=== PATIENT | female | born 1985 | race African-American/Black ===

== ENCOUNTER 2020-08-13 15:22 | Emergency (ER) | payer MEDICAID, SELFPAY ==
[2020-08-13 15:27] VITALS: BP 127/79; PULSE 72; RESP 18; TEMP 36.9; O2SAT 100; BMI 28.8
--- NOTE | 2020-08-13 16:42 | ED.GENADULT ---
HPI - General Adult General Chief complaint: Headache Stated complaint: HEADACHE,BODY ACHES Time Seen by Provider: 08/13/20 16:26 Source: patient Mode of arrival: ambulatory Limitations: no limitations and language barrier History of Present Illness HPI narrative: patient with body aches headache low-grade fever for last 4 - 5 days no cough no shortness of breath no urinary symptoms patient denied anyone with COVID positive patient requesting for MRI for headache. Patient does get headaches off and on been to emergency room before for same. Patient denies any nausea/vomiting no other neurological symptoms Related Data Previous Rx's Medication Instructions Recorded nohphcvbvo-bkpeivqwfozvl-pckc 1 cap PO Q6H PRN #20 cap 08/13/20 [Fioricet] cyclobenzaprine 10 mg PO Q8H #20 tab 08/13/20 Allergies Allergy/AdvReac Type Severity Reaction Status Date / Time No Known Allergies Allergy Unverified 05/23/20 18:21 [No Known Allergies*] Review of Systems Review of Systems: REVIEW OF SYSTEMS: Pertinent positives and negatives are stated above in the history. GEN: no fevers, chills, fatigue +++ HEENT: no nasal congestion, sore throat, ear pain NEURO: no dizziness, focal weakness PULM: no cough, shortness of breath CV: no chest pain, palpitations, LE edema ABD: no abdominal pain, nausea, vomiting, diarrhea : no dysuria, urgency, frequency SKIN: no rash ROS otherwise negative x 10 PMFSH Past Medical History Medical History Asthma Social History Social History Alcohol intake: never Smoked in Last 30 Days: No Use of substances other than those prescribed or required for medical reasons: No Advance Directives: No Advance Directives Information Provided: No Physical Exam Vital Signs: Vital Signs: Last Vital Signs Temp 98.4 F 08/13/20 15:27 Pulse 72 08/13/20 15:27 Resp 18 08/13/20 15:27 BP 127/79 08/13/20 15:27 Pulse Ox 100 08/13/20 15:27 Body Mass Index 28.8 Appearance: Alert. Oriented X3. No acute distress. Eyes: Pupils equal, round and reactive to light. ENT: Pharynx normal. Neck: Normal inspection. Neck supple. CVS: Normal heart rate and rhythm. Pulses normal. Respiratory: No respiratory distress. Breath sounds normal. Abdomen: Soft and nontender. Skin: Skin warm and dry. Normal skin color. Normal skin turgor. Extremities: No lower extremity edema. Good range of movement Neuro: Oriented X 3. No motor deficit. No sensory deficit. Medical Decision Making Lab Data Lab results reviewed: Yes I reviewed the patient's lab results. Labs: Lab Results 08/13/20 08/13/20 Range/Units 16:43 16:59 Urine Color YELLOW Urine Appearance CLEAR Urine pH 6.0 (5.0-8.0) Ur Specific [place] 1.025 (1.005-1.025) Urine Protein NEG (NEG-TRACE) MG/DL Urine Glucose (UA) NEG (NEG) MG/DL Urine Ketones NEG (NEG) MG/DL Urine Blood NEG (NEG) Urine Nitrite NEG (NEG) Ur Leukocyte Esterase NEG (NEG) Urine Test NEGATIVE (NEGATIVE) Coronavirus (PCR) NEGATIVE (Negative) Influenza Type A (PCR) NEGATIVE (Negative) Influenza Type B (PCR) NEGATIVE (Negative) RSV RNA Qual (PCR) NEGATIVE (Negative) Discharge Plan Discharge Clinical Impression: Headache Qualifiers: Headache type: unspecified Headache chronicity pattern: episodic headache Intractability: not intractable Qualified Code(s): R51.9 - Headache, unspecified Patient Disposition: Home, Self-Care Instructions: Tension Headache (ED) Additional Instructions: we did a COVID-19 testing on your result will come today and will call you. Keep hydrated , take Fioricet for headache Prescriptions: New mduwfjecse-aplarfnfyygug-awjn [Fioricet] 50-300-40 mg capsule 1 cap PO Q6H PRN (Reason: pain) Qty: 20 RF: 0 cyclobenzaprine 10 mg tablet 10 mg PO Q8H Qty: 20 RF: 0 Interventions: ED Discharge Assessment Last Done: 08/13/20 17:40 Discharge Date/Time: 08/13/20 17:44 Print Language: [place]
[2020-08-13] MEDS: Butalb/Acetamin/Caff 50/325/40 TABLET 1 TAB PO (16:57)
[2020-08-13 17:13] LABS: Glucose Urine UA NEG (NEG); Leukocyte Esterase Urine NEG (NEG); Nitrite Urine NEG (NEG); Specific Gravity - Urine 1.025 (1.005-1.025); Urine Blood NEG (NEG); Urine Ketones NEG (NEG); Urine Protein NEG (NEG-TRACE)
[2020-08-13 17:14] LABS: Appearance Urine CLEAR; Color Urine YELLOW
[2020-08-13 17:15] LABS: UPreg QC Valid YES; Urine Pregnancy NEGATIVE (NEGATIVE)
[2020-08-13 18:06] LABS: Influenza A PCR NEGATIVE (Negative); Influenza B PCR NEGATIVE (Negative); Resp Syncy Virus RNA Qual PCR NEGATIVE (Negative); SARS COV2 PCR INHOUSE NEGATIVE (Negative)
== END 2020-08-13 17:44 | disposition home or self-care (01) ==
PROVIDERS: Emergency Provider Internal Medicine; PCP Family Medicine
DX: R51.9 Headache, unspecified (principal); M79.10 Myalgia, unspecified site; R50.9 Fever, unspecified; Z20.828 Contact with and (suspected) exposure to other viral communicable diseases
CPT/HCPCS: 0241U; 81003; 81025; 99284

== ENCOUNTER 2021-07-24 19:45 | Emergency (ER) | payer MEDICAID, SELFPAY | END 2021-07-24 23:37 | disposition left against medical advice (07) | PROVIDERS: Emergency Provider Emergency Medicine; PCP Family Medicine | DX: R68.89 Other general symptoms and signs (principal) ==

== ENCOUNTER → 2023-01-14 11:47 | Outpatient (BNV) | payer MEDICAID, SELFPAY | PROVIDERS: PCP Family Medicine; Visit Provider Internal Medicine | DX: D50.0 Iron deficiency anemia secondary to blood loss (chronic) (principal) | CPT/HCPCS: 99204; 99214 ==

== ENCOUNTER 2023-01-29 12:02 | Outpatient (REF) | payer MEDICAID, SELFPAY ==
--- NOTE | 2023-04-15 09:56 | HE.ONCSEC ---
unable to LVM mailbox full. Remind of appt 04/16/23
== END 2023-01-29 12:03 | disposition home or self-care (01) ==
LOC: HO.MDS 12:02
PROVIDERS: Visit Provider Internal Medicine
DX: D50.9 Iron deficiency anemia, unspecified (principal)
CPT/HCPCS: 96365; J1756

== ENCOUNTER 2023-02-05 11:55 | Outpatient (REF) | payer MEDICAID, SELFPAY | END 2023-02-05 11:56 | disposition home or self-care (01) | LOC: HO.MDS 11:55 | PROVIDERS: Visit Provider Internal Medicine | DX: D50.9 Iron deficiency anemia, unspecified (principal) | CPT/HCPCS: 96365; J1756 ==

== ENCOUNTER 2023-02-12 11:58 | Outpatient (REF) | payer MEDICAID, SELFPAY | END 2023-02-12 11:59 | disposition home or self-care (01) | LOC: HO.MDS 11:58 | PROVIDERS: Visit Provider Internal Medicine | DX: D50.9 Iron deficiency anemia, unspecified (principal) | CPT/HCPCS: 96365; J1756 ==

== ENCOUNTER 2023-02-19 12:19 | Outpatient (REF) | payer MEDICAID, SELFPAY | END 2023-02-19 12:20 | disposition home or self-care (01) | LOC: HO.MDS 12:19 | PROVIDERS: Visit Provider Internal Medicine | DX: D50.9 Iron deficiency anemia, unspecified (principal) | CPT/HCPCS: 96374; J1756 ==

== ENCOUNTER 2023-02-26 12:06 | Outpatient (REF) | payer MEDICAID, SELFPAY | END 2023-02-26 12:07 | disposition home or self-care (01) | LOC: HO.MDS 12:06 | PROVIDERS: Visit Provider Internal Medicine | DX: D50.9 Iron deficiency anemia, unspecified (principal) | CPT/HCPCS: 96365 ==

== ENCOUNTER 2023-05-03 10:57 | Outpatient (REF) | payer MEDICAID, SELFPAY ==
[2023-05-03 13:14] LABS: Basophils Percent Auto 0.2 % (0-2); Eosinophils Absolute Auto 0.1 X10*3/uL (0.0-0.4); Eosinophils Percent Auto 1.1 % (0-4); Hematocrit 41.7 % (37.0-47.0); Hemoglobin 13.3 g/dl (12.0-16.0); Imm Gran Abs Auto 0.02 X10*3/uL (0.00-0.03); Imm Gran Pct Auto 0.2 % (0.0-0.4); Lymphocytes Absolute Auto 5.8 X10*3/uL (1.2-4.9); Lymphocytes Percent Auto 47.2 % (20-40); MANUAL DIFF FLAG SCAN; Mean Corpuscular HGB Conc 31.9 g/dl (31.0-35.0); Mean Corpuscular Hemoglobin 24.1 pg (27.0-33.0); Mean Corpuscular Volume 75.7 fL (80.0-98.0); Mean Platelet Volume 12.1 fL (9.4-12.3); Monocytes Absolute Auto 0.6 X10*3/uL (0.1-1.2); Monocytes Percent Auto 4.9 % (2-11); Neutrophils Absolute Auto 5.7 x10*3/uL (2.0-8.3); Neutrophils Percent Auto 46.4 % (45-73); Platelet Count 142 X10*3/uL (160-400); Red Blood Count 5.51 X10*6/uL (4.20-5.50); Red Cell Distribution Width 16.3 % (11.0-16.0); SCAN SMEAR FLAG 1; White Blood Count 12.3 X10*3/uL (4.8-10.8)
[2023-05-03 13:36] LABS: Iron 87 mcg/dL (30-160); Percent Iron Saturation 30 % (15-50); Total Iron Binding Capacity 290 mcg/dL (228-428); Unsaturated Iron Binding 203 ug/dL
[2023-05-03 13:38] LABS: Ferritin 56 ng/mL (10-122)
[2023-05-03 13:44] LABS: SLIDE REVIEW VERIFIED
[2023-05-03 13:53] LABS: Folate 5.8 ng/mL (> or = 4.0); Vitamin B12 428 pg/mL (200-900)
== END 2023-05-03 10:58 | disposition home or self-care (01) ==
LOC: HO.HHCL 10:57
PROVIDERS: Visit Provider Family Medicine
DX: D52.9 Folate deficiency anemia, unspecified (principal)
CPT/HCPCS: 36415; 82607; 82728; 82746; 83540; 85025

== ENCOUNTER 2023-05-04 13:37 | Outpatient (REF) | payer MEDICAID, SELFPAY ==
[2023-05-05 07:37] LABS: Syphilis Screen Nonreactive (Nonreactive)
[2023-05-05 08:09] LABS: HBS Num1 0.04 mIU/mL (0-7.99); HBc Num1 0.08 S/CO (0.00-0.79); HBsAGNum1 0.39 S/CO (0.00-0.99); HIV AB/AG Nonreactive (Nonreactive); HIV Num 1 0.05 S/CO (0.00-0.99); Hepatitis B Core Antibody Nonreactive (Nonreactive); Hepatitis B Surface Antigen Negative (Negative); ~Hepatitis B Surface Antibody NONREACTIVE (Nonreactive)
[2023-05-05 08:18] LABS: ~HepC Num1 0.05 S/CO (0.00-0.79); ~Hepatitis C Antibody Nonreactive (Nonreactive)
[2023-05-05 15:17] LABS: CT PCR NOT DETECTED (Not Detect.); NG PCR NOT DETECTED (Not Detect.)
== END 2023-05-04 13:38 | disposition home or self-care (01) ==
LOC: HO.HHCL 13:37
PROVIDERS: Visit Provider Family Medicine
DX: Z11.3 Encounter for screening for infections with a predominantly sexual mode of transmission (principal)
CPT/HCPCS: 0353U; 86704; 86706; 86780; 86803; 87340; 87389

== ENCOUNTER 2023-12-30 11:03 | Outpatient (REF) | payer MEDICAID, SELFPAY ==
[2023-12-30 13:36] LABS: MANUAL DIFF FLAG NO
[2023-12-30 13:48] LABS: Estimated Average Glucose 103 mg/dL; Hemoglobin A1c % 5.2 % (<6.0)
[2023-12-30 13:50] LABS: Basophils Percent Auto 0.4 % (0-2); Eosinophils Percent Auto 0.4 % (0-4); Hematocrit 41.3 % (37.0-47.0); Hemoglobin 13.1 g/dl (12.0-16.0); Imm Gran Abs Auto 0.01 X10*3/uL (0.00-0.03); Imm Gran Pct Auto 0.1 % (0.0-0.4); Lymphocytes Absolute Auto 3.3 X10*3/uL (1.2-4.9); Lymphocytes Percent Auto 40.5 % (20-40); Mean Corpuscular HGB Conc 31.7 g/dl (31.0-35.0); Mean Corpuscular Hemoglobin 24.2 pg (27.0-33.0); Mean Corpuscular Volume 76.2 fL (80.0-98.0); Mean Platelet Volume 12.1 fL (9.4-12.3); Monocytes Absolute Auto 0.4 X10*3/uL (0.1-1.2); Monocytes Percent Auto 5.2 % (2-11); Neutrophils Absolute Auto 4.3 x10*3/uL (2.0-8.3); Neutrophils Percent Auto 53.4 % (45-73); Platelet Count 175 X10*3/uL (160-400); Red Blood Count 5.42 X10*6/uL (4.20-5.50); Red Cell Distribution Width 14.6 % (11.0-16.0); White Blood Count 8.1 X10*3/uL (4.8-10.8)
[2023-12-30 14:41] LABS: Alanine Aminotransferase 12 U/L (0-31); Albumin Level 4.1 g/dL (3.5-5.0); Alkaline Phosphatase 123 U/L (39-117); Anion Gap 7 (12-20); Aspartate Amino Transferase 16 U/L (5-31); Bilirubin Total 0.3 mg/dL (0.0-1.0); Blood Urea Nitrogen 5 mg/dL (9-16); Calcium 9.5 mg/dL (8.4-10.2); Carbon Dioxide 30 mmol/L (22-29); Chloride 107 mmol/L (96-108); Cholesterol 164 mg/dL (<200); Estimated Glomerular Filt Rate > 60; Ferritin 15 ng/mL (10-122); Glucose Random 88 mg/dL (60-115); HDL Cholesterol 46 mg/dL (>40); Iron 62 mcg/dL (30-160); LDL Cholesterol Calculated 100 mg/dL (<100); Percent Iron Saturation 18 % (15-50); Potassium 4.2 mmol/L (3.3-5.1); Sodium 140 mmol/L (135-145); TSH reflex Free T4 1.73 uIU/mL (0.32-4.0); Total Iron Binding Capacity 349 mcg/dL (228-428); Total Protein 7.9 g/dL (6.5-8.0); Triglycerides 90 mg/dL (<150); Unsaturated Iron Binding 287 ug/dL
[2023-12-30 14:42] LABS: Folate 6.8 ng/mL (> or = 4.0)
[2023-12-30 15:04] LABS: CT PCR NOT DETECTED (Not Detect.); NG PCR NOT DETECTED (Not Detect.)
[2023-12-30 15:28] LABS: Reflex LDLD? No
[2023-12-30 21:04] LABS: Vitamin B12 435 pg/mL (200-900)
[2023-12-31 08:20] LABS: Hepatitis A Antibody IgG Nonreactive (Nonreactive); ~Hepatitis A Antibody IgG 0.63 S/CO (0.00-0.99)
[2023-12-31 08:29] LABS: HBS Num1 0.15 mIU/mL (0-7.99); HBc Num1 0.21 S/CO (0.00-0.79); HBsAGNum1 0.37 S/CO (0.00-0.99); HIV AB/AG Nonreactive (Nonreactive); HIV Num 1 0.05 S/CO (0.00-0.99); Hepatitis B Core Antibody Nonreactive (Nonreactive); Hepatitis B Surface Antigen Negative (Negative); ~HepC Num1 0.11 S/CO (0.00-0.79); ~Hepatitis B Surface Antibody NONREACTIVE (Nonreactive); ~Hepatitis C Antibody Nonreactive (Nonreactive)
[2023-12-31 08:45] LABS: Syphilis Screen Nonreactive (Nonreactive)
== END 2023-12-30 11:04 | disposition home or self-care (01) ==
LOC: HO.HHCL 11:03
PROVIDERS: Visit Provider Family Medicine
DX: Z11.4 Encounter for screening for human immunodeficiency virus [HIV] (principal); E66.09 Other obesity due to excess calories; Z68.30 Body mass index [BMI] 30.0-30.9, adult; D52.9 Folate deficiency anemia, unspecified
CPT/HCPCS: 0353U; 36415; 80053; 80061; 82607; 82728; 82746; 83036; 83540; 84443; 85025; 86704; 86706; 86708; 86780; 86803; 87340; 87389

== ENCOUNTER 2024-10-06 10:12 | Emergency (ER) | payer MEDICAID, SELFPAY ==
--- NOTE | ~2024-10-06 | US_ITS ---
EXAMINATION: US ABDOMEN LIMITED CLINICAL INFORMATION: Epigastric/right upper quadrant pain. Nausea and vomiting.. COMPARISON: None available. TECHNIQUE: Real-time imaging of the right upper quadrant abdominal viscera. FINDINGS: PANCREAS: No peripancreatic fluid collections. LIVER: Increased echotexture. No gross solid or cystic lesion. No nodular surface. No intrahepatic biliary ductal dilatation. GALLBLADDER: There are multiple layering intraluminal hyperechoic lesions with posterior shadowing. No pericholecystic fluid collection or gallbladder wall thickening. COMMON BILE DUCT: 3 mm.. RIGHT KIDNEY: 11 cm. Normal renal cortical thickness. Normal echotexture. There is a 3.1 cm septated anechoic lesion in the midportion. No hydronephrosis.. FREE FLUID: None. US/US abdomen limited IMPRESSION: Cholelithiasis. Complex septated cyst, right kidney. No hydronephrosis. No ascites. Electronically signed by: Clinton Capps MD 10/06/2024 02:25 PM EST
[2024-10-06 10:45] VITALS: BP 133/74; PULSE 73; RESP 16; TEMP 36.6; O2SAT 94; BMI 29.2
[2024-10-06 11:21] LABS: MANUAL DIFF FLAG NO
[2024-10-06 11:22] LABS: Basophils Percent Auto 0.2 % (0-2); Eosinophils Percent Auto 0.5 % (0-4); Hematocrit 38.1 % (37.0-47.0); Hemoglobin 11.8 g/dl (12.0-16.0); Imm Gran Abs Auto 0.01 X10*3/uL (0.00-0.03); Imm Gran Pct Auto 0.1 % (0.0-0.4); Lymphocytes Absolute Auto 3.1 X10*3/uL (1.2-4.9); Lymphocytes Percent Auto 38.4 % (20-40); Mean Corpuscular Volume 74.3 fL (80.0-98.0); Mean Platelet Volume 10.8 fL (9.4-12.3); Monocytes Absolute Auto 0.5 X10*3/uL (0.1-1.2); Monocytes Percent Auto 6.5 % (2-11); Neutrophils Absolute Auto 4.4 x10*3/uL (2.0-8.3); Neutrophils Percent Auto 54.3 % (45-73); Platelet Count 172 X10*3/uL (160-400); Red Blood Count 5.13 X10*6/uL (4.20-5.50)
[2024-10-06 11:23] LABS: Appearance Urine Clear; Color Urine Yellow; Glucose Urine UA Negative (Negative); Leukocyte Esterase Urine Negative (Negative); Nitrite Urine Negative (Negative); PH 5.5 (5.0-9.0); Urine Blood Negative (Negative); Urine Ketones Trace mg/dL (Negative); Urine Protein Negative (Neg-Trace)
[2024-10-06 11:24] LABS: UPreg QC Valid YES; Urine Pregnancy NEGATIVE (NEGATIVE)
[2024-10-06 11:42] LABS: Alanine Aminotransferase 13 U/L (0-31); Alkaline Phosphatase 128 U/L (39-117); Anion Gap 9 (12-20); Aspartate Amino Transferase 21 U/L (5-31); Bilirubin Total 0.3 mg/dL (0.0-1.0); Blood Urea Nitrogen 5 mg/dL (9-16); Calcium 9.5 mg/dL (8.4-10.2); Carbon Dioxide 25 mmol/L (22-29); Chloride 110 mmol/L (96-108); Creatinine Clr Calc Pharmacy 125.8; Estimated Glomerular Filt Rate > 60; Glucose Random 83 mg/dL (60-115); Potassium 4.3 mmol/L (3.3-5.1); Sodium 140 mmol/L (135-145); Total Protein 7.9 g/dL (6.5-8.0)
--- OUTSIDE RECORDS SUMMARY | 2024-10-06 12:04 | XMS_ITS | Encounter Summary ---
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 Was here several days ago and diagnosed with RSV. Has not gotten better. Encounter Details Date Type Department Care Team (Late st Contact Info) Description 10/06/2024 9:28 AM [facility] Emergency [address] [place] [id number] Social History Tobacco Use Types Packs/Day Years Used Date Smoking Tobacco: Every Day Smokeless Tobacco: Never Sex and Gender Information Value Date Recorded Sex Assigned at Not on file Gender Identity Not on file Sexual Orientation Not on file Job Start Date Occupation Industry Not on file Not on file Not on file documented as of this encounter Plan of Treatment Not on file documented as of this encounter Visit Diagnoses Not on filedocumented in this encounter Additional Health Concerns Infection Onset Date Last Indicated Resolved Time RSV 09/25/2024 09/25/2024 documented as of this encounter Care Teams [employer] Machine Operator Relationship Specialty Start Date End Date Rebekah Napoles MD [address] [place] [phone] PCP - General Family Medicine 09/26/24 documented as of this encounter
--- OUTSIDE RECORDS SUMMARY | 2024-10-06 12:04 | XMS_ITS | Encounter Summary ---
Author Organization [employer] [facility] Address [address] [place] [address] Care Team Providers Care Senior Revenue Accountant Name Role Phone Rebekah Napoles MD Primary Care Provider [phone] Reason for Visit * Reason Comments Flu Symptoms Fever, body aches, c ough x 2 weeks Encounter Details Date Type Department Care Team (Late st Contact Info) Description 09/26/2024 4:46 AM EST - 09/26/2024 11:55 AM EST Emergency [facility] Emergency [address] [place] [id number] Judson Wisdom MD [address] [place] [address] Kali Quinteros, DO [address] [place] [address] RSV (acute bronchiolitis due to respiratory syncytial virus) (Primary Dx) Discharge Disposition: Home or Self Care Social History Tobacco Use Types Packs/Day Years Used Date Smoking Tobacco: Every Day Smokeless Tobacco: Never Sex and Gender Information Value Date Recorded Sex Assigned at Not on file Gender Identity Not on file Sexual Orientation Not on file Job Start Date Occupation Industry Not on file Not on file Not on file documented as of this encounter Last Filed Vital Signs Vital Sign Reading Time Taken Comments Blood Pressure 120/83 09/26/2024 6:22 AM EST Pulse 70 09/26/2024 6:22 AM EST Temperature 36.6 ??C (97.9 ??F) 09/25/2024 9:02 PM ES T Respiratory Rate 18 09/26/2024 6:22 AM EST Oxygen Saturation 98% 09/26/2024 6:22 AM EST Inhaled Oxygen Concentration - - Weight 88 kg (194 lb) 09/25/2024 9:02 PM EST Height 172.7 cm (5' 8 ) 09/25/2024 9:02 PM EST Body Mass Index 29.5 09/25/2024 9:02 PM EST documented in this encounter Discharge Instructions * Discharge Instructions* ASHLEY Noel - 09/26/2024 11:20 AM EST Today you tested positive for RSV which is causing your symptoms. Take prescribed Mucinex DM twice daily as needed for chest congestion and cough. Take over the counter ibuprofen (600mg) every 6-8 hours. 2400MAX in a [address] scan of your abdomen and pelvis was okay, the chest x-ray was normal. * Attachments The following attachments cannot be sent through Care Everywhere. * Infection: Respiratory Syncytial Virus (RSV) (Filipino) documented in this encounter Medications at Time of Discharge Medication Sig Dispensed Refills Start Date End Date dextromethorphan-guaiFEN esin (MUCINEX DM) 30-600 mg per 12 hr tablet Take 1 tablet by mouth every 12 (twelve) hours for 10 days. Do not crush, chew, or split. 20 tablet 09/26/2024 10/06/2024 ibuprofen (ADVIL,MOTRIN) 600 mg tablet Take 1 tablet (600 mg total) by mouth every 6 (six) hours if needed for mild pain. 30 tablet 09/26/2024 documented as of this encounter Ordered Prescriptions Prescription Sig Dispensed Refills Start Date End Da te dextromethorphan-guaiFENe sin (MUCINEX DM) 30-600 mg per 12 hr tablet Take 1 tablet by mouth every 12 (twelve) hours for 10 days. Do not crush, chew, or split. 20 tablet 09/26/2024 10/06/2024 ibuprofen (ADVIL,MOTRIN) 600 mg tablet Take 1 tablet (600 mg total) by mouth every 6 (six) hours if needed for mild pain. 30 tablet 09/26/2024 documented in this encounter Discharge Disposition Disposition Code Departure Means Destination Comment s Home or Self Alf documented in this encounter Progress Notes * Little Ellis RN - 09/26/2024 11:55 AM EST Urine culture results reviewed by becca adorno--no change in treatment plan Little Ellis RN 09/27/24 09 * ASHLEY Noel - 09/26/2024 7:16 AM EST ED Course as of 09/26/24 1141 Tue Sep 26, 2024 0716 Patient signed out to me at end of shift pending CT scan [NG] [address] at this time [NG] [address] was negative, chest x-ray clear. Patient does complain of dysuria, denies any vaginal discharge but when asked if concerned about STIs she states you can test me. Urine chlamydia and gonorrhea will be sent, clinical exam and history not concerning for PID or TOA. She will be treated for RSV with Mucinex DM, ibuprofen as needed for pain. [NG] ED Course User Index [NG] ASHLEY Noel Clinical Impressions as of 09/26/24 1141 RSV (acute bronchiolitis due to respiratory syncytial virus) Data Unavailable No diagnosis found. Procedures * Ambika Danielle - 09/25/2024 9:21 PM EST Negative Preg Ambika Danielle [id number]/25/[id number] * Rosa M Alexander RN - 09/25/2024 9:04 PM EST Pt here with c/o flu like symptoms for 2 weeks and also c/o dysuria * Judson Wisdom MD - 09/25/2024 8:57 PM EST Emergency Medicine Note Patient Name: Verónica Audain Garsia Initial Evaluation: 09/25/2024 : 1985 Patient's PCP: Rebekah Napoles MD Emergency Physician: Judson Wisdom MD History of Present Illness Chief Complaint: Chief Complaint Patient presents with Flu Symptoms Fever, body aches, cough x 2 weeks HPI: 39-year-old female, no significant past medical history, presents with fever, myalgias, arthralgias, and now with right lower quadrant and right flank pain. Patient states for the past 2 weeks she has been having intermittent fever, cough, myalgias, arthralgias. She states those symptoms have improved but now she is having a lot of right flank and right lower quadrant abdominal pain. She states this pain is sharp, colicky in nature, no relieving or exacerbating factors. She is not having any urinary symptoms. She has no fever. She does have some nausea but no vomiting. She is not having any chest pain. ROS: I have performed a ROS with the pertinent positives and negatives documented in the history ofpresent illness. Previous History Past Medical History: Diagnosis Date Asthma DX:Asthma Past Surgical History: Procedure Laterality Date BELT ABDOMINOPLASTY PROCEDURE: HISTORICAL LONA MERCADO Social History Tobacco Use Smoking status: Every Day Smokeless tobacco: Never Family History Problem Relation Name Age of Onset Throat cancer Maternal Grandmother Breast cancer Paternal Grandmother Breast cancer Other has no allergies on file. No current facility-administered medications on file prior to encounter. No current outpatient medications on file prior to encounter. Physical Exam ED Triage Vitals [09/25/24 2102] Temp Heart Rate Resp BP 36.6 ??C (97.9 ??F) 87 18 126/67 SpO2 Temp Source Heart Rate Source Patient Position 100 % Oral -- Sitting BP Location FiO2 (%) Right arm -- General: Well-appearing, well nourished, in no acute distress HEENT: PERRL, EOMI, external ears and nose appear unremarkable, airway is patent Neck: Supple, full range of motion Chest: Clear to auscultation; no evidence of respiratory distress Circulatory: RRR, extremities well perfused Abdomen: Non-distended, mild tenderness to palpation in the right lower quadrant and the right flank/CVA, no rebound, no guarding Extremities: Normal ROM, No edema Skin: Warm and dry Neuro: Alert and oriented, no focal deficits Results Labs Reviewed RESPIRATORY VIRUS PANEL MOLECULAR STUDY - Abnormal Result Value Adenovirus Detection by PCR Not Detected Influenza A PCR Not Detected Influenza B PCR Not Detected Coronavirus 229E Not Detected Coronavirus HKU1 Not Detected Coronavirus OC43 Not Detected Coronavirus NL63 Not Detected Parainfluenza Virus 1 Not Detected Parainfluenza Virus 2 Not Detected Parainfluenza Virus 3 Not Detected Parainfluenza Virus 4 Not Detected RSV PCR Detected (*) Human Metapneumovirus A and B Not Detected Rhinovirus/Enterovirus Not Detected Bordetella pertussis Not Detected Bordetella parapertussis Not Detected Mycoplasma pneumo by PCR Not Detected Chlamydia pneumoniae Not Detected SARS COV-2 Not Detected Narrative: Testing was performed using the [email or web address] Respiratory Pathogen PCR Assay. All results must be correlated with the clinical findings. Results should not be used as the sole basis for diagnosis. False Negative results may occur from the presence of sequence variants in the region targeted by the assay or the presence of inhibitors. Results may be affected by concurrent antiviral/antimicrobial therapy or levels of organisms that are below the limit of detection. URINALYSIS WITH REFLEX MICROSCOPIC AND CULTURE - Abnormal Specific Loop Urine 1.027 pH, Urine 5.5 Leukocytes, Urine Trace (*) Nitrite, Urine Negative Protein, Urine Trace Glucose, Urine Negative Ketones, Urine Trace (*) Urobilinogen, Urine 1.0 Bilirubin, Urine Negative Blood, Urine Negative RBC, Urine 1.0 WBC, Urine 2.7 Squamous Epithelial, Urine 36 Bacteria, Urine Negative Hyaline Casts, Urine 6.3 (*) CULTURE URINE URINALYSIS WITH REFLEX MICROSCOPIC AND CULTURE Narrative: The following orders were created for panel order Urinalysis with reflex microscopic and culture. Procedure Abnormality Status --------- ------ Urinalysis with reflex ...[[id number]] Abnormal Edited Result - FINAL Winkler urine culture tube[[id number]] Final result Please view results for these tests on the individual orders. Abnormal Labs Reviewed RESPIRATORY VIRUS PANEL MOLECULAR STUDY - Abnormal; Notable for the following components: Result Value RSV PCR Detected (*) All other components within normal limits Narrative: Testing was performed using the [employer] Respiratory Pathogen PCR Assay. All results must be correlated with the clinical findings. Results should not be used as the sole basis for diagnosis. False Negative results may occur from the presence of sequence variants in the region targeted by the assay or the presence of inhibitors. Results may be affected by concurrent antiviral/antimicrobial therapy or levels of organisms that are below the limit of detection. URINALYSIS WITH REFLEX MICROSCOPIC AND CULTURE - Abnormal; Notable for the following components: Leukocytes, Urine Trace (*) Ketones, Urine Trace (*) Hyaline Casts, Urine 6.3 (*) All other components within normal limits No orders to display I have discussed the incidental/abnormal imaging and/or lab abnormalities with the patient and haveinstructed them the need for further evaluation and workup with their primary care doctor. I have provided the patient with a paper copy of the abnormality. The laboratory results, imaging results and other diagnostic exam results were reviewed in the EMR. EKG Interpretation Critical Care Time None ? Medical Decision Making Medications - No data to display 39-year-old female, no significant past medical history, who presents with flank pain as well as other symptoms. Potential etiologies for this patient's symptoms include but are not limited to renal colic, appendicitis, viral upper respiratory infection such as influenza/RSV/COVID-19, pneumonia. Onphysical exam she is having tenderness in the right flank and the right lower quadrant this is concerning for possible renal colic versus appendicitis. She has no urinary symptoms. This is unlikely to be a pyelonephritis. Her other symptoms are suggestive of a viral process such as influenza/COVID/RSV, viral swab is pending. Viral swab is positive for RSV. Awaiting CT scan. Care transferred to the morning team for follow-up and final disposition. Patient's urinalysis shows no significant abnormalities, this is unlikely to be a pyelonephritis or a urinary tract infection. Procedures Procedures Diagnosis No diagnosis found. Disposition Data Unavailable ED Prescriptions None Physician Attestation Judson Wisdom MD 09/26/24 0548 Judson Wisdom MD 09/26/24 0650 documented in this encounter Plan of Treatment Not on file documented as of this encounter Procedures Procedure Name Priority Date/Time Associated Diagnosis Comments CHLAMYDIA TRACHOMATIS AND NEISSERIA GONORRHOEAE PCR STAT 09/26/2024 11:[address] ABDOMEN PELVIS WO CONTRAST STAT 09/26/2024 10:22 AM EST POC , URINE DIAGNOSTIC STAT 09/26/2024 10:10 AM EST XR CHEST 2 VIEWS STAT 09/26/2024 9:12 AM EST CBC WITH AUTO DIFFERENTIAL STAT 09/26/2024 8:38 AM EST CBC AND DIFFERENTIAL STAT 09/26/2024 8:38 AM EST COMPREHENSIVE METABOLIC PANEL STAT 09/26/2024 8:38 AM EST URINALYSIS WITH REFLEX MICROSCOPIC AND CULTURE STAT 09/25/2024 9:21 PM EST [facility] URINE CULTURE TUBE STAT 09/25/2024 9:21 PM EST URINALYSIS WITH REFLEX MICROSCOPIC AND CULTURE STAT 09/25/2024 9:21 PM EST CULTURE URINE STAT 09/25/2024 9:21 PM EST RESPIRATORY VIRUS PANEL MOLECULAR STUDY STAT 09/25/2024 9:10 PM EST documented in this encounter Results * Chlamydia trachomatis and Neisseria gonorrhoeae molecular study (09/26/2024 11:55 AM EST) Neisseria gonorrhoeae PCR Negative Negative LAB MOLECULAR DIAGNOSTICS METHOD 09/26/2024 2:45 PM EST [facility] Chlamydia trachomatis PCR Negative Negative LAB MOLECULAR DIAGNOSTICS METHOD 09/26/2024 2:45 PM EST [facility] Urine Urine specimen obtained by clean catch procedure / Unknown Non-blood Collection / Unknown 09/26/2024 11:55 AM EST 09/26/2024 12:23 PM EST Rosalva RAMIREZ LAB MICROBIOLOGY - GENERAL ORDERABLES [facility] [address] [place] [address], * CT Abdomen Pelvis wo Contrast (09/26/2024 10:22 AM EST) Anatomical Region Laterality Modality Body Computed Tomogra phy 09/26/2024 10:4 2 AM EST Impressions 09/26/2024 10:48 AM EST No acute findings in the abdomen/pelvis. -------- FINAL REPORT -------- Dictated By: BO GLORIA Dictated Date: 09/26/2024 10:42 ET Assigned Physician: BO GLORIA Reviewed and Electronically Signed By: BO GLORIA Signed Date: 09/26/2024 10:48 ET Workstation ID: [id number] Transcribed By: Self Edit Transcribed Date: 09/26/2024 10:42 ET Narrative 09/26/2024 10:48 AM EST PROCEDURE: CT abdomen/pelvis INDICATION: Flank pain, kidney stone TECHNIQUE: CT of the abdomen and pelvis without contrast. Multiplanar reformats. The examination was performed utilizing dose reduction techniques. ??Total DLP 1410 COMPARISON: ??05/06/2023 FINDINGS: ?? LOWER THORAX: Lung bases are clear. HEPATOBILIARY: No focal liver lesions. No cholelithiasis or biliary duct dilatation. SPLEEN: No splenomegaly. PANCREAS: No focal mass or ductal dilatation. ADRENALS: No nodules. KIDNEYS/URETERS: No hydronephrosis, stones, or solid mass. ??Right renal cyst. PELVIC ORGANS/BLADDER: Unremarkable. PERITONEUM / RETROPERITONEUM: No ascites or free air. No retroperitoneal lymphadenopathy. VESSELS: Abdominal aorta is normal in size. GI TRACT: No bowel obstruction or wall thickening. ??Normal appendix. BONES AND SOFT TISSUES: Postsurgical changes seen throughout the subcutaneous tissues. ??Bones are normal. Procedure Note Bo Gloria MD - 09/26/2024 PROCEDURE: CT abdomen/pelvis INDICATION: Flank pain, kidney stone TECHNIQUE: CT of the abdomen and pelvis without contrast. Multiplanarreformats. The examination was performed utilizing dose reductiontechniques. Total DLP 1410 COMPARISON: 05/06/2023 FINDINGS: LOWER THORAX: Lung bases are clear. HEPATOBILIARY: No focal liver lesions. No cholelithiasis or biliary ductdilatation. SPLEEN: No splenomegaly. PANCREAS: No focal mass or ductal dilatation. ADRENALS: No nodules. KIDNEYS/URETERS: No hydronephrosis, stones, or solid mass. Right renalcyst. PELVIC ORGANS/BLADDER: Unremarkable. PERITONEUM / RETROPERITONEUM: No ascites or free air. No retroperitoneallymphadenopathy. VESSELS: Abdominal aorta is normal in size. GI TRACT: No bowel obstruction or wall thickening. Normal appendix. BONES AND SOFT TISSUES: Postsurgical changes seen throughout thesubcutaneous tissues. Bones are normal. IMPRESSION: No acute findings in the abdomen/pelvis. -------- FINAL REPORT -------- Dictated By: BO GLORIA Dictated Date: 09/26/2024 10:42 ET Assigned Physician: BO GLORIA Reviewed and Electronically Signed By: BO GLORIA Signed Date: 09/26/2024 10:48 ET Workstation ID: [id number] Transcribed By: Self Edit Transcribed Date: 09/26/2024 10:42 ET Judson Wisdom MD IMG CT PROCEDURES * POC , urine manually resulted (09/26/2024 10:10 AM EST) HCG, Ur POC Negative Negative POC hCG Int QC Pass? Yes Yes Urine Urine specimen obtained by clean catch procedure / Unknown 09/26/2024 10:10 AM EST Kali Quinteros DO POINT OF CARE TEST ENTER/EDIT ORDERABLES * XR Chest 2 Views (09/26/2024 9:12 AM EST) Anatomical Region Laterality Modality Body Radiographic Lily ging 09/26/2024 9:18 AM EST Impressions 09/26/2024 9:21 AM EST FINDINGS/IMPRESSION: Lungs are clear. ??No pleural effusion or pneumothorax. ??Cardiac silhouette and bones are normal. -------- FINAL REPORT -------- Dictated By: BO GLORIA Dictated Date: 09/26/2024 09:18 ET Assigned Physician: BO GLORIA Reviewed and Electronically Signed By: BO GLORIA Signed Date: 09/26/2024 09:21 ET Workstation ID: [id number] Transcribed By: Self Edit Transcribed Date: 09/26/2024 09:18 ET Narrative 09/26/2024 9:21 AM EST XR CHEST 2 VIEWS INDICATION: ??Cough TECHNIQUE: XR CHEST 2 VIEWS COMPARISON: 03/12/2024 Procedure Note Bo Gloria MD - 09/26/2024 XR CHEST 2 VIEWS INDICATION: Cough TECHNIQUE: XR CHEST 2 VIEWS COMPARISON: 03/12/2024 IMPRESSION: FINDINGS/IMPRESSION: Lungs are clear. No pleural effusion orpneumothorax. Cardiac silhouette and bones are normal. -------- FINAL REPORT -------- Dictated By: BO GLORIA Dictated Date: 09/26/2024 09:18 ET Assigned Physician: BO GLORIA Reviewed and Electronically Signed By: BO GLORIA Signed Date: 09/26/2024 09:21 ET Workstation ID: [id number] Transcribed By: Self Edit Transcribed Date: 09/26/2024 09:18 ET Rosalva RAMIREZ IMG XR PROCEDURE S * (ABNORMAL) CBC auto differential (09/26/2024 8:38 AM EST) WBC 9.2 4.8 - 10.8 K/mcL LAB HEMETOLOGY METHOD 09/26/2024 8:52 AM [facility] RBC 4.90(H) 3.80 - 4.80 M/[facility] LAB HEMETOLOGY METHOD 09/26/2024 8:52 AM EST [facility] Hemoglobin 11.1(L) 11.5 - 16.0 g/dL LAB HEMETOLOGY METHOD 09/26/2024 8:52 AM [facility] Hematocrit 36.7 35.0 - 47.0 % LAB HEMETOLOGY METHOD 09/26/2024 8:52 AM [facility] MCV 75.1(L) 79.0 - 98.0 FL LAB HEMETOLOGY METHOD 09/26/2024 8:52 AM [facility] MCH 22.7(L) 27.0 - 32.0 pcg LAB HEMETOLOGY METHOD 09/26/2024 8:52 AM [facility] MCHC 30.2(L) 32.0 - 37.0 g/dL LAB HEMETOLOGY METHOD 09/26/2024 8:52 AM [facility] RDW 14.8 11.0 - 15.0 % LAB HEMETOLOGY METHOD 09/26/2024 8:52 AM [facility] Platelets 180 130 - 400 K/mcL LAB HEMETOLOGY METHOD 09/26/2024 8:52 AM [facility] MPV 12.2(H) 7.0 - 11.0 FL LAB HEMETOLOGY METHOD 09/26/2024 8:52 AM [facility] NRBC 0.0 <1.0 % LAB HEMETOLOGY METHOD 09/26/2024 8:52 AM [facility] NRBC Absolute 0.00 <0.10 K/mcL LAB HEMETOLOGY METHOD 09/26/2024 8:52 AM [facility] Neutrophils Relative 47.1 % LAB HEMETOLOGY METHOD 09/26/2024 8:52 AM [facility] Lymphocytes Relative 44.6 % LAB HEMETOLOGY METHOD 09/26/2024 8:52 AM [facility] Monocytes Relative 6.9 % LAB HEMETOLOGY METHOD 09/26/2024 8:52 AM [facility] Eosinophils Relative 0.9 % LAB HEMETOLOGY METHOD 09/26/2024 8:52 AM [facility] Basophils Relative 0.3 % LAB HEMETOLOGY METHOD 09/26/2024 8:52 AM [facility] Immature Granulocytes Relative 0.2 % LAB HEMETOLOGY METHOD 09/26/2024 8:52 AM EST [facility] Neutrophils Absolute 4.31 1.50 - 7.00 [facility] LAB HEMETOLOGY METHOD 09/26/2024 8:52 AM EST [facility] Lymphocytes Absolute 4.08 1.00 - 5.00 [facility] LAB HEMETOLOGY METHOD 09/26/2024 8:52 AM EST [facility] Monocytes Absolute 0.63 0.20 - 1.00 [facility] LAB HEMETOLOGY METHOD 09/26/2024 8:52 AM EST [facility] Eosinophils Absolute 0.08 0.00 - 0.50 [facility] LAB HEMETOLOGY METHOD 09/26/2024 8:52 AM EST [facility] Basophils Absolute 0.03 0.00 - 0.20 K/mcL LAB HEMETOLOGY METHOD 09/26/2024 8:52 AM EST [facility] Immature Granulocytes Absolute 0.02 0.00 - 0.03 K/mcL LAB HEMETOLOGY METHOD 09/26/2024 8:52 AM EST [facility] Blood Venous blood specimen / Unknown Venipuncture / Unknown 09/26/2024 8:38 AM EST 09/26/2024 8:48 AM EST Kali Quinteros DO LAB BLOOD ORDERABLE S [facility] [address] [place] [address], * (ABNORMAL) Comprehensive metabolic panel (09/26/2024 8:38 AM EST) Sodium 139 133 - 145 mmol/L LAB CHEMISTRY METHOD 09/26/2024 9:19 AM EST [facility] Potassium 3.6 3.5 - 5.5 mmol/L LAB CHEMISTRY METHOD 09/26/2024 9:19 AM [facility] Chloride 107 96 - 110 mmol/L LAB CHEMISTRY METHOD 09/26/2024 9:19 AM [facility] CO2 26 21 - 32 mmol/L LAB CHEMISTRY METHOD 09/26/2024 9:19 AM [facility] Anion Gap 6 3 - 11 LAB CHEMISTRY METHOD 09/26/2024 9:19 AM [facility] Glucose 97 70 - 100 mg/dL LAB CHEMISTRY METHOD 09/26/2024 9:19 AM [facility] BUN 7 5 - 25 mg/dL LAB CHEMISTRY METHOD 09/26/2024 9:19 AM [facility] Creatinine 0.66 0.50 - 1.10 mg/dL LAB CHEMISTRY METHOD 09/26/2024 9:19 AM [facility] eGFR 115 >=60 mL/min/1. 73m2 LAB CHEMISTRY METHOD 09/26/2024 9:19 AM [facility] Comment:Calculation based on the??Chronic Kidney Disease Epidemiology Collaboration (CKD-EPI) equation refit??without adjustment for race. BUN/Creatinine Ratio 10.6 LAB CHEMISTRY METHOD 09/26/2024 9:19 AM [facility] Calcium 8.6 8.5 - 10.5 mg/dL LAB CHEMISTRY METHOD 09/26/2024 9:19 AM [facility] AST (SGOT) 16 10 - 42 unit/L LAB CHEMISTRY METHOD 09/26/2024 9:19 AM [facility] ALT (SGPT) 18 10 - 60 unit/L LAB CHEMISTRY METHOD 09/26/2024 9:19 AM [facility] Alkaline Phosphatase 143(H) 42 - 121 unit/L LAB CHEMISTRY METHOD 09/26/2024 9:19 AM [facility] Total Protein 6.8 6.0 - 8.0 g/dL LAB CHEMISTRY METHOD 09/26/2024 9:19 AM [facility] Albumin 3.2 3.2 - 5.0 g/dL LAB CHEMISTRY METHOD 09/26/2024 9:19 AM EST [facility] Total Bilirubin 0.1 0.0 - 1.4 mg/dL LAB CHEMISTRY METHOD 09/26/2024 9:19 AM EST [facility] Blood Venous blood specimen / Unknown Venipuncture / Unknown 09/26/2024 8:38 AM EST 09/26/2024 8:48 AM EST Kali Quinteros DO LAB BLOOD ORDERABLE S Performing Organization Address City/[facility]/ZIP Co de Phone Number [facility] [address] [place] [address], [place] [phone] * (ABNORMAL) Culture urine (09/25/2024 9:21 PM EST) Culture, Urine 10,000-49,000 CFU/mL Streptococcus agalactiae(A) SUSIE 09/27/2024 7:58 AM EST [facility] Comment: Beta Streptococcus Group B Susceptibility testing is not routinely performed since this organism is predictably sensitive to Penicillin. Susceptibility testing should be performed for Penicillin-allergic women at HIGH RISK for anaphylaxis. S nataliauld this patient require testing, please contact the Microbiology Department at [phone] within 7 days of receiving this report to request susceptibility. This is an edited result. Previous organism was Gram Positive Cocci on 09/26/2024 at 1331 EST. Urine Urine specimen obtained by clean catch procedure / Unknown Non-blood Collection / Unknown 09/25/2024 9:21 PM EST 09/25/2024 10:16 PM EST Judson Wisdom MD LAB MICROBIOLOGY - G ENERAL ORDERABLES [facility] [address] [place] [address], [place] [phone] * [facility] urine culture tube (09/25/2024 9:21 PM EST) Pathologist [facility] [place] Extra Tube Hold for add-ons. 09/25/2024 11:01 PM [facility] Comment:Auto resulted. Urine Urine specimen obtained by clean catch procedure / Unknown Non-blood Collection / Unknown 09/25/2024 9:21 PM EST 09/25/2024 9:42 PM EST Judson Wisdom MD LAB URINE ORDERABLES [facility] [address] [place] [address], [place] [phone] * (ABNORMAL) Urinalysis with reflex microscopic and culture (09/25/2024 9:21 PM EST) [facility] Specific Loop Urine 1.027 1.003 - 1.030 LAB URINALYSIS - AUTOMATED METHOD 09/25/2024 11:33 PM [facility] pH, Urine 5.5 5.0 - 8.0 pH LAB URINALYSIS - AUTOMATED METHOD 09/25/2024 11:33 PM [facility] Leukocytes, Urine Trace(A) Negative LAB URINALYSIS - AUTOMATED METHOD 09/25/2024 11:33 PM [facility] Nitrite, Urine Negative Negative LAB URINALYSIS - AUTOMATED METHOD 09/25/2024 11:33 PM [facility] Protein, Urine Trace <=Trace mg/dL LAB URINALYSIS - AUTOMATED METHOD 09/25/2024 11:33 PM [facility] Glucose, Urine Negative Negative mg/dL LAB URINALYSIS - AUTOMATED METHOD 09/25/2024 11:33 PM [facility] Ketones, Urine Trace(A) Negative mg/dL LAB URINALYSIS - AUTOMATED METHOD 09/25/2024 11:33 PM [facility] Urobilinogen, Urine 1.0 0.2 - 1.0 mg/dL LAB URINALYSIS - AUTOMATED METHOD 09/25/2024 11:33 PM [facility] Bilirubin, Urine Negative Negative LAB URINALYSIS - AUTOMATED METHOD 09/25/2024 11:33 PM [facility] Blood, Urine Negative Negative LAB URINALYSIS - AUTOMATED METHOD 09/25/2024 11:33 PM [facility] RBC, Urine 1.0 0 - 4 /HPF LAB URINALYSIS - AUTOMATED METHOD 09/25/2024 11:33 PM [facility] Comment:This is an appended report. These results have been appended to a previously final verified report. WBC, Urine 2.7 0 - 4 /HPF LAB URINALYSIS - AUTOMATED METHOD 09/25/2024 11:33 PM [facility] Comment:This is an appended report. These results have been appended to a previously final verified report. Squamous Epithelial, Urine 36 0 - 60 /LPF LAB URINALYSIS - AUTOMATED METHOD 09/25/2024 11:33 PM [facility] Comment:This is an appended report. These results have been appended to a previously final verified report. Bacteria, Urine Negative Negative /HPF LAB URINALYSIS - AUTOMATED METHOD 09/25/2024 11:33 PM [facility] Comment:This is an appended report. These results have been appended to a previously final verified report. Hyaline Casts, Urine 6.3(H) 0 - 3 /LPF LAB URINALYSIS - AUTOMATED METHOD 09/25/2024 11:33 PM [facility] Comment:This is an appended report. These results have been appended to a previously final verified report. Urine Urine specimen obtained by clean catch procedure / Unknown Non-blood Collection / Unknown 09/25/2024 9:21 PM EST 09/25/2024 9:41 PM EST Judson Wisdom MD LAB URINE ORDERABLES [facility] [address], [place] [address] [phone] * (ABNORMAL) Respiratory virus panel molecular study (09/25/2024 9:10 PM EST) Pathologist [facility] [place] Adenovirus Detection by PCR Not Detected Not Detected LAB MICROBIOLOGY METHOD 09/25/2024 10:18 PM EST [facility] Influenza A PCR Not Detected Not Detected LAB MICROBIOLOGY METHOD 09/25/2024 10:18 PM EST [facility] Influenza B PCR Not Detected Not Detected LAB MICROBIOLOGY METHOD 09/25/2024 10:18 PM EST [facility] Coronavirus 229E Not Detected Not Detected LAB MICROBIOLOGY METHOD 09/25/2024 10:18 PM EST [facility] Coronavirus HKU1 Not Detected Not Detected LAB MICROBIOLOGY METHOD 09/25/2024 10:18 PM EST [facility] Coronavirus OC43 Not Detected Not Detected LAB MICROBIOLOGY METHOD 09/25/2024 10:18 PM EST [facility] Coronavirus NL63 Not Detected Not Detected LAB MICROBIOLOGY METHOD 09/25/2024 10:18 PM EST [facility] Parainfluenza Virus 1 Not Detected Not Detected LAB MICROBIOLOGY METHOD 09/25/2024 10:18 PM EST [facility] Parainfluenza Virus 2 Not Detected Not Detected LAB MICROBIOLOGY METHOD 09/25/2024 10:18 PM [facility] Parainfluenza Virus 3 Not Detected Not Detected LAB MICROBIOLOGY METHOD 09/25/2024 10:18 PM EST [facility] Parainfluenza Virus 4 Not Detected Not Detected LAB MICROBIOLOGY METHOD 09/25/2024 10:18 PM EST [facility] RSV PCR Detected(A ) Not Detected LAB MICROBIOLOGY METHOD 09/25/2024 10:18 PM EST [facility] Human Metapneumovirus A and B Not Detected Not Detected LAB MICROBIOLOGY METHOD 09/25/2024 10:18 PM EST [facility] Rhinovirus/Entero virus Not Detected Not Detected LAB MICROBIOLOGY METHOD 09/25/2024 10:18 PM EST [facility] Bordetella pertussis Not Detected Not Detected LAB MICROBIOLOGY METHOD 09/25/2024 10:18 PM [facility] Bordetella parapertussis Not Detected Not Detected LAB MICROBIOLOGY METHOD 09/25/2024 10:18 PM [facility] Mycoplasma pneumo by PCR Not Detected Not Detected LAB MICROBIOLOGY METHOD 09/25/2024 10:18 PM [facility] Chlamydia pneumoniae Not Detected Not Detected LAB MICROBIOLOGY METHOD 09/25/2024 10:18 PM [facility] SARS COV-2 Not Detected Not Detected LAB MICROBIOLOGY METHOD 09/25/2024 10:18 PM [facility] Swab Structure of right anterior naris / Unknown Non-blood Collection / Unknown 09/25/2024 9:10 PM EST 09/25/2024 9:19 PM EST [facility] - 09/25/2024 10:18 PM EST Testing was performed using the [employer] Respiratory Pathogen PCR Assay. All results must be correlated with the clinical findings. Results should not be used as the sole basis for diagnosis. False Negative results may occur from the presence of sequence variants in the region targeted by the assay or the presence of inhibitors. Results may be affected by concurrent antiviral/antimicrobial therapy or levels of organisms that are below the limit of detection. Kali Quinteros DO LAB MICROBIOLOGY - GENERAL ORDERABLES [facility] [address] [place] [address], documented in this encounter Visit Diagnoses Diagnosis RSV (acute bronchiolitis due to respiratory syncytial virus)- Primary Acute bronchiolitis due to respiratory syncytial virus (RSV) documented in this encounter Administered Medications Inactive Administered Medications - up to 3 most recent administrations Medication Order MAR Action Action Date Dose Rate Site acetaminophen (TYLENOL) tablet 650 mg 650 mg, oral, Once, On Wed09/26/24 at 0600, For 1 dose Given 09/26/2024 7:49 AM EST 650 mg ibuprofen (ADVIL,MOTRIN) tablet 600 mg 600 mg, oral, Once, On Wed09/26/24 at 0600, For 1 dose, Administer with food or milk to decrease GI upset Given 09/26/2024 7:49 AM EST 600 mg documented in this encounter Active and Recently Administered Medications Times are shown in EST. Scheduled Medication Order 09/24/2024 09/25/2024 09/26/2024 acetaminophen (TYLENOL) tablet 650 mg (COMPLETED) 650 mg, oral, Once, On Wed09/26/24 at 0600, For 1 dose 0749 (Given - Provid er: Elvira Lundberg RN) ibuprofen (ADVIL,MOTRIN) tablet 600 mg (COMPLETED) 600 mg, oral, Once, On Wed09/26/24 at 0600, For 1 dose, Administer with food or milk to decrease GI upset 0749 (Given - Provid er: Elvira Lundberg RN) documented in this encounter Additional Health Concerns Infection Onset Date Last Indicated Resolved Time RSV 09/25/2024 09/25/2024 documented as of this encounter Care Teams Senior Revenue Accountant Relationship Specialty Start Date End Date Rebekah Napoles MD [address] [place] [id number] PCP - General Family Medicine 09/26/24 documented as of this encounter
--- OUTSIDE RECORDS SUMMARY | 2024-10-06 12:04 | XMS_ITS | Clinical Summary ---
Author Organization [facility] Address [address] [place] [address] Phone Care Team Providers Care Front Edger Name Role Phone Rebekah Napoles MD Primary Care Provider [phone] Medications Medication Sig Dispensed Refills Start Date End Date Status ibuprofen (ADVIL,MOTRIN) 600 mg tablet Take 1 tablet (600 mg total) by mouth every 6 (six) hours if needed for mild pain. 30 tablet 09/26/2024 Active dextromethorphan-gua iFENesin (MUCINEX DM) 30-600 mg per 12 hr tablet Take 1 tablet by mouth every 12 (twelve) hours for 10 days. Do not crush, chew, or split. 20 tablet 09/26/2024 10/06/2024 Active Encounters Date Type Department Care Team Description 10/06/2024 9:28 AM [facility] Emergency [address] [place] [phone] 09/26/2024 4:46 AM EST - 09/26/2024 11:55 AM [facility] Emergency [address] [place] [phone] Judson Wisdom MD Cauchon, Matthew C, DO RSV (acute bronchiolitis due to respiratory syncytial virus) (Primary Dx) Discharge Disposition: Home or Self Care from Last 3 Months Surgical History Surgery Date Site/Laterality Comments BELT ABDOMINOPLASTY PROCEDURE: HISTORICAL LONA MERCADO Medical History Medical History Date Comments Asthma DX:Asthma Family History Medical History Relation Name Comments Throat cancer Maternal Grandmother Breast cancer Other Breast cancer Paternal Grandmother Relation Name Status Comments Maternal Grandmother Other Paternal Grandmother Social History Tobacco Use Types Packs/Day Years Used Date Smoking Tobacco: Every Day Smokeless Tobacco: Never Sex and Gender Information Value Date Recorded Sex Assigned at Not on file Gender Identity Not on file Sexual Orientation Not on file Job Start Date Occupation Industry Not on file Not on file Not on file Obstetrics History Last Filed Vital Signs Vital Sign Reading [...] Mass Index 29.5 09/25/2024 9:02 PM EST Plan of Treatment Health Maintenance Due Date Last Done Comments Hepatitis A Vaccines (1 of 2 - Risk 2-dose series) 2005 Hepatitis B Vaccines (1 of 3 - 19+ 3-dose series) 2005 Cervical Cancer Screening: P ap Smear 2007 Pneumococcal Vaccine: Pediatrics (0 to 5 Years) and At-Risk Patients (6 to 64 Years) (2 of 2 - PCV) 08/14/2015 08/14/2014 Cholesterol Screening (Lipid Panel) 08/04/2022 Social Influencers of Health Screening 08/04/2022 COVID-19 Vaccine (1 - 2023-2 5 season) 2024 Influenza Vaccine (#1) 2024 4, 06/20/2012 Depression Screening 12/29/2024 12/30/2023 DTaP,Tdap,and Td Vaccines (3 - Td or Tdap) 01/25/2031 01/25/2021, 08/14/2014 HIV Screening Completed 12/30/2023 Hepatitis C Screening Completed 12/30/2023 HIB Vaccines Aged Out No longer eligi ble based on patient's age to complete this topic HPV Vaccines Aged Out No longer eligi ble based on patient's age to complete this topic IPV Vaccines Aged Out No longer eligi ble based on patient's age to complete this topic MMR Vaccines Aged Out No longer eligi ble based on patient's age to complete this topic Meningococcal ACWY Vaccine Aged Out N o longer eligible based on patient's age to complete this topic RSV Immunization Patients Under 20 months Aged Out No longer eligible b ased on patient's age to complete this topic Varicella Vaccines Aged Out No longer eligible based on patient's age to complete this topic Procedures Procedure Name Priority Date/Time Associated Diagnosis Comments CHLAMYDIA TRACHOMATIS AND NEISSERIA GONORRHOEAE PCR STAT 09/26/2024 11:[address] ABDOMEN PELVIS WO CONTRAST STAT 09/26/2024 10:22 AM EST POC , URINE DIAGNOSTIC STAT 09/26/2024 10:10 AM EST XR CHEST 2 VIEWS STAT 09/26/2024 9:12 AM EST CBC WITH AUTO DIFFERENTIAL STAT 09/26/2024 8:38 AM EST COMPREHENSIVE METABOLIC PANEL STAT 09/26/2024 8:38 AM EST CBC AND DIFFERENTIAL STAT 09/26/2024 8:38 AM EST [facility] URINE CULTURE TUBE STAT 09/25/2024 9:21 PM EST URINALYSIS WITH REFLEX MICROSCOPIC AND CULTURE STAT 09/25/2024 9:21 PM EST URINALYSIS WITH REFLEX MICROSCOPIC AND CULTURE STAT 09/25/2024 9:21 PM EST CULTURE URINE STAT 09/25/2024 9:21 PM EST RESPIRATORY VIRUS PANEL MOLECULAR STUDY STAT 09/25/2024 9:10 PM EST from Last 3 Months Results * Chlamydia trachomatis and Neisseria gonorrhoeae molecular study (09/26/2024 11:55 AM EST) Neisseria gonorrhoeae PCR Negative Negative LAB MOLECULAR DIAGNOSTICS METHOD 09/26/2024 2:45 PM EST [facility] Chlamydia trachomatis PCR Negative Negative LAB MOLECULAR DIAGNOSTICS METHOD 09/26/2024 2:45 PM EST [facility] Urine Urine specimen obtained by clean catch procedure / Unknown Non-blood Collection / Unknown 09/26/2024 11:55 AM EST 09/26/2024 12:23 PM EST Rosalva RAMIREZ LAB MICROBIOLOGY - GENERAL ORDERABLES [facility] [address] [place] [address], * CT Abdomen Pelvis wo Contrast (09/26/2024 10:22 AM EST) Anatomical Region Laterality Modality Body Computed Tomogra phy 09/26/2024 10:4 2 AM EST Impressions 09/26/2024 10:48 AM EST No acute findings in the abdomen/pelvis. -------- FINAL REPORT -------- Dictated By: JOVAN GLORIA Dictated Date: 09/26/2024 10:42 ET Assigned Physician: JOVAN GLORIA Reviewed and Electronically Signed By: JOVAN GLORIA Signed Date: 09/26/2024 10:48 ET Workstation ID: [id number] Transcribed By: Self Edit Transcribed Date: 09/26/2024 [...] subcutaneous tissues. ??Bones are normal. Procedure Note Jovan Gloria MD - 09/26/2024 PROCEDURE: CT abdomen/pelvis [...] abdomen/pelvis. -------- FINAL REPORT -------- Dictated By: JOVAN GLORIA Dictated Date: 09/26/2024 10:42 ET Assigned Physician: JOVAN GLORIA Reviewed and Electronically Signed By: JOVAN GLORIA Signed Date: 09/26/2024 10:48 ET Workstation ID: [id number] Transcribed By: Self Edit Transcribed Date: 09/26/2024 [...] normal. -------- FINAL REPORT -------- Dictated By: JOVAN GLORIA Dictated Date: 09/26/2024 09:18 ET Assigned Physician: JOVAN GLORIA Reviewed and Electronically Signed By: JOVAN GLORIA Signed Date: 09/26/2024 09:21 ET Workstation ID: [id number] Transcribed By: Self Edit Transcribed Date: 09/26/2024 09:18 ET Narrative 09/26/2024 9:21 AM EST XR CHEST 2 VIEWS INDICATION: ??Cough TECHNIQUE: XR CHEST 2 VIEWS COMPARISON: 03/12/2024 Procedure Note Jovan Gloria MD - 09/26/2024 XR CHEST 2 VIEWS INDICATION: Cough TECHNIQUE: XR CHEST 2 VIEWS COMPARISON: 03/12/2024 IMPRESSION: FINDINGS/IMPRESSION: Lungs are clear. No pleural effusion orpneumothorax. Cardiac silhouette and bones are normal. -------- FINAL REPORT -------- Dictated By: JOVAN GLORIA Dictated Date: 09/26/2024 09:18 ET Assigned Physician: JOVAN GLORIA Reviewed and Electronically Signed By: JOVAN GLORIA Signed Date: 09/26/2024 09:21 ET Workstation ID: [id number] Transcribed By: Self Edit Transcribed Date: 09/26/2024 09:18 ET Rosalva RAMIREZ IMG XR PROCEDURE S * (ABNORMAL) CBC auto differential (09/26/2024 8:38 AM EST) WBC 9.2 4.8 - 10.8 [facility] LAB HEMETOLOGY METHOD 09/26/2024 8:52 AM [facility] RBC 4.90(H) 3.80 - 4.80 M/mcL LAB HEMETOLOGY METHOD 09/26/2024 8:52 AM [facility] Hemoglobin 11.1(L) 11.5 - 16.0 g/dL LAB HEMETOLOGY METHOD 09/26/2024 8:52 AM [facility] Hematocrit 36.7 35.0 - 47.0 % LAB HEMETOLOGY METHOD 09/26/2024 8:52 AM [facility] MCV 75.1(L) 79.0 - 98.0 FL LAB HEMETOLOGY METHOD 09/26/2024 8:52 AM [facility] MCH 22.7(L) 27.0 - 32.0 pcg LAB HEMETOLOGY METHOD 09/26/2024 8:52 AM [facility] MCHC 30.2(L) 32.0 - 37.0 g/dL LAB HEMETOLOGY METHOD 09/26/2024 8:52 AM [facility] RDW 14.8 11.0 - 15.0 % LAB HEMETOLOGY METHOD 09/26/2024 8:52 AM [facility] Platelets 180 130 - 400 K/mcL LAB HEMETOLOGY METHOD 09/26/2024 8:52 AM [facility] MPV 12.2(H) 7.0 - 11.0 FL LAB HEMETOLOGY METHOD 09/26/2024 8:52 AM [facility] NRBC 0.0 <1.0 % LAB HEMETOLOGY METHOD 09/26/2024 8:52 AM [facility] NRBC Absolute 0.00 <0.10 K/mcL LAB HEMETOLOGY METHOD 09/26/2024 8:52 AM [facility] Neutrophils Relative 47.1 % LAB HEMETOLOGY METHOD 09/26/2024 8:52 AM [facility] Lymphocytes Relative 44.6 % LAB HEMETOLOGY METHOD 09/26/2024 8:52 AM [facility] Monocytes Relative 6.9 % LAB HEMETOLOGY METHOD 09/26/2024 8:52 AM [facility] Eosinophils Relative 0.9 % LAB HEMETOLOGY METHOD 09/26/2024 8:52 AM [facility] Basophils Relative 0.3 % LAB HEMETOLOGY METHOD 09/26/2024 8:52 AM [facility] Immature Granulocytes Relative 0.2 % LAB HEMETOLOGY METHOD 09/26/2024 8:52 AM [facility] Neutrophils Absolute 4.31 1.50 - 7.00 K/mcL LAB HEMETOLOGY METHOD 09/26/2024 8:52 AM [facility] Lymphocytes Absolute 4.08 1.00 - 5.00 K/mcL LAB HEMETOLOGY METHOD 09/26/2024 8:52 AM [facility] Monocytes Absolute 0.63 0.20 - 1.00 K/mcL LAB HEMETOLOGY METHOD 09/26/2024 8:52 AM [facility] Eosinophils Absolute 0.08 0.00 - 0.50 K/mcL LAB HEMETOLOGY METHOD 09/26/2024 8:52 AM [facility] Basophils Absolute 0.03 0.00 - 0.20 K/mcL LAB HEMETOLOGY METHOD 09/26/2024 8:52 AM [facility] Immature Granulocytes Absolute 0.02 0.00 - 0.03 K/mcL LAB HEMETOLOGY METHOD 09/26/2024 8:52 AM [facility] Blood Venous blood specimen / Unknown Venipuncture / Unknown 09/26/2024 8:38 AM EST 09/26/2024 8:48 AM EST Kali Quinteros DO LAB BLOOD ORDERABLE S [facility] [address] [place] [address], * (ABNORMAL) Comprehensive metabolic panel (09/26/2024 8:38 AM EST) Sodium 139 133 - 145 mmol/L LAB CHEMISTRY METHOD 09/26/2024 9:19 AM [facility] Potassium 3.6 3.5 - 5.5 mmol/L LAB CHEMISTRY METHOD 09/26/2024 9:19 AM [facility] Chloride 107 96 - 110 mmol/L LAB CHEMISTRY METHOD 09/26/2024 9:19 AM [facility] CO2 26 21 - 32 mmol/L LAB CHEMISTRY METHOD 09/26/2024 9:19 AM [facility] Anion Gap 6 3 - 11 LAB CHEMISTRY METHOD 09/26/2024 9:19 AM [facility] Glucose 97 70 - 100 mg/dL LAB CHEMISTRY METHOD 09/26/2024 9:19 AM [facility] BUN 7 5 - 25 mg/dL LAB CHEMISTRY METHOD 09/26/2024 9:19 AM [facility] Creatinine 0.66 0.50 - 1.10 mg/dL LAB CHEMISTRY METHOD 09/26/2024 9:19 AM [facility] eGFR 115 >=60 mL/min/1. 73m2 LAB CHEMISTRY METHOD 09/26/2024 9:19 AM [facility] Comment:Calculation based on the??Chronic Kidney Disease Epidemiology Collaboration (CKD-EPI) equation refit??without adjustment for race. BUN/Creatinine Ratio 10.6 LAB CHEMISTRY METHOD 09/26/2024 9:19 AM [facility] Calcium 8.6 8.5 - 10.5 mg/dL LAB CHEMISTRY METHOD 09/26/2024 9:19 AM [facility] AST (SGOT) 16 10 - 42 unit/L LAB CHEMISTRY METHOD 09/26/2024 9:19 AM [facility] ALT (SGPT) 18 10 - 60 unit/L LAB CHEMISTRY METHOD 09/26/2024 9:19 AM [facility] Alkaline Phosphatase 143(H) 42 - 121 unit/L LAB CHEMISTRY METHOD 09/26/2024 9:19 AM [facility] Total Protein 6.8 6.0 - 8.0 g/dL LAB CHEMISTRY METHOD 09/26/2024 9:19 AM [facility] Albumin 3.2 3.2 - 5.0 g/dL LAB CHEMISTRY METHOD 09/26/2024 9:19 AM [facility] Total Bilirubin 0.1 0.0 - 1.4 mg/dL LAB CHEMISTRY METHOD 09/26/2024 9:19 AM [facility] Blood Venous blood specimen / Unknown Venipuncture / Unknown 09/26/2024 8:38 AM EST 09/26/2024 8:48 AM EST Kali Quinteros DO LAB BLOOD ORDERABLE S [facility] [address] [place] [address], * (ABNORMAL) Urinalysis with reflex microscopic and culture (09/25/2024 9:21 PM EST) Specific [place] Urine 1.027 1.003 - 1.030 LAB URINALYSIS - AUTOMATED METHOD 09/25/2024 11:33 PM [facility] pH, Urine 5.5 5.0 - 8.0 pH LAB URINALYSIS - AUTOMATED METHOD 09/25/2024 11:33 PM [facility] Leukocytes, Urine Trace(A) Negative LAB URINALYSIS - AUTOMATED METHOD 09/25/2024 11:33 PM [facility] Nitrite, Urine Negative Negative LAB URINALYSIS - AUTOMATED METHOD 09/25/2024 11:33 PM [facility] Protein, Urine Trace <=Trace mg/dL LAB URINALYSIS - AUTOMATED METHOD 09/25/2024 11:33 PM [facility] Glucose, Urine Negative Negative mg/dL LAB URINALYSIS - AUTOMATED METHOD 09/25/2024 11:33 PM [facility] Ketones, Urine Trace(A) Negative mg/dL LAB URINALYSIS - AUTOMATED METHOD 09/25/2024 11:33 PM [facility] Urobilinogen, Urine 1.0 0.2 - 1.0 mg/dL LAB URINALYSIS - AUTOMATED METHOD 09/25/2024 11:33 PM [facility] Bilirubin, Urine Negative Negative LAB URINALYSIS - AUTOMATED METHOD 09/25/2024 11:33 PM [facility] Blood, Urine Negative Negative LAB URINALYSIS - AUTOMATED METHOD 09/25/2024 11:33 PM [facility] RBC, Urine 1.0 0 - 4 /HPF LAB URINALYSIS - AUTOMATED METHOD 09/25/2024 11:33 PM [facility] Comment:This is an appended report. These results have been appended to a previously final verified report. WBC, Urine 2.7 0 - 4 /HPF LAB URINALYSIS - AUTOMATED METHOD 09/25/2024 11:33 PM [facility] Comment:This is an appended report. These results have been appended to a previously final verified report. Squamous Epithelial, Urine 36 0 - 60 /LPF LAB URINALYSIS - AUTOMATED METHOD 09/25/2024 11:33 PM [facility] Comment:This is an appended report. These results have been appended to a previously final verified report. Bacteria, Urine Negative Negative /HPF LAB URINALYSIS - AUTOMATED METHOD 09/25/2024 11:33 PM [facility] Comment:This is an appended report. These results have been appended to a previously final verified report. Hyaline Casts, Urine 6.3(H) 0 - 3 /LPF LAB URINALYSIS - AUTOMATED METHOD 09/25/2024 11:33 PM EST [facility] Comment:This is an appended report. These results have been appended to a previously final verified report. Urine Urine specimen obtained by clean catch procedure / Unknown Non-blood Collection / Unknown 09/25/2024 9:21 PM EST 09/25/2024 9:41 PM EST Judson Wisdom MD LAB URINE ORDERABLES Performing Organization Address [facility]/ZIP Co de Phone Number [facility] [address] [place] [address], * [facility] urine culture tube (09/25/2024 9:21 PM EST) Extra Tube Hold for add-ons. 09/25/2024 11:01 PM EST [facility] Comment:Auto resulted. Urine Urine specimen obtained by clean catch procedure / Unknown Non-blood Collection / Unknown 09/25/2024 9:21 PM EST 09/25/2024 9:42 PM EST Judson Wisdom MD LAB URINE ORDERABLES Performing Organization Address [facility]/ZIP Co de Phone Number [facility] [address] [place] [address], [place] [phone] * (ABNORMAL) Culture urine (09/25/2024 9:21 PM EST) Culture, Urine 10,000-49,000 CFU/mL Streptococcus agalactiae(A) SUSIE 09/27/2024 7:58 AM EST [facility] Comment: Beta Streptococcus Group B Susceptibility testing is not routinely performed since this organism is predictably sensitive to Penicillin. Susceptibility testing should be performed for Penicillin-allergic women at HIGH RISK for anaphylaxis. S hould this patient require testing, please contact the Microbiology Department at [phone] within 7 days of receiving this report to request susceptibility. This is an edited result. Previous organism was Gram Positive Cocci on 09/26/2024 at 1331 EST. Urine Urine specimen obtained by clean catch procedure / Unknown Non-blood Collection / Unknown 09/25/2024 9:21 PM EST 09/25/2024 10:16 PM EST Judson Wisdom MD LAB MICROBIOLOGY - G ENERAL ORDERABLES [facility] [address] [place] [address], * (ABNORMAL) Respiratory virus panel molecular study (09/25/2024 9:10 PM EST) Adenovirus Detection by PCR Not Detected Not Detected LAB MICROBIOLOGY METHOD 09/25/2024 10:18 PM EST [facility] Influenza A PCR Not Detected Not Detected LAB MICROBIOLOGY METHOD 09/25/2024 10:18 PM EST [facility] Influenza B PCR Not Detected Not Detected LAB MICROBIOLOGY METHOD 09/25/2024 10:18 PM EST [facility] Coronavirus 229E Not Detected Not Detected LAB MICROBIOLOGY METHOD 09/25/2024 10:18 PM EST [facility] Coronavirus HKU1 Not Detected Not Detected LAB MICROBIOLOGY METHOD 09/25/2024 10:18 PM EST [facility] Coronavirus OC43 Not Detected Not Detected LAB MICROBIOLOGY METHOD 09/25/2024 10:18 PM EST [facility] Coronavirus NL63 Not Detected Not Detected LAB MICROBIOLOGY METHOD 09/25/2024 10:18 PM EST [facility] Parainfluenza Virus 1 Not Detected Not Detected LAB MICROBIOLOGY METHOD 09/25/2024 10:18 PM EST [facility] Parainfluenza Virus 2 Not Detected Not Detected LAB MICROBIOLOGY METHOD 09/25/2024 10:18 PM EST [facility] Parainfluenza Virus 3 Not Detected Not Detected LAB MICROBIOLOGY METHOD 09/25/2024 10:18 PM [facility] Parainfluenza Virus 4 Not Detected Not Detected LAB MICROBIOLOGY METHOD 09/25/2024 10:18 PM [facility] RSV PCR Detected(A ) Not Detected LAB MICROBIOLOGY METHOD 09/25/2024 10:18 PM [facility] Human Metapneumovirus A and B Not Detected Not Detected LAB MICROBIOLOGY METHOD 09/25/2024 10:18 PM [facility] Rhinovirus/Entero virus Not Detected Not Detected LAB MICROBIOLOGY METHOD 09/25/2024 10:18 PM [facility] Bordetella pertussis Not Detected Not Detected LAB MICROBIOLOGY METHOD 09/25/2024 10:18 PM [facility] Bordetella parapertussis Not Detected Not Detected LAB MICROBIOLOGY METHOD 09/25/2024 10:18 PM [facility] Mycoplasma pneumo by PCR Not Detected Not Detected LAB MICROBIOLOGY METHOD 09/25/2024 10:18 PM [facility] Chlamydia pneumoniae Not Detected Not Detected LAB MICROBIOLOGY METHOD 09/25/2024 10:18 PM [facility] SARS COV-2 Not Detected Not Detected LAB MICROBIOLOGY METHOD 09/25/2024 10:18 PM [facility] Swab Structure of right anterior naris / Unknown Non-blood Collection / Unknown 09/25/2024 9:10 PM EST 09/25/2024 9:19 PM EST [facility] - 09/25/2024 10:18 PM EST Testing was performed using the [employer] Respiratory Pathogen PCR Assay. All results must [...] Quinteros DO LAB MICROBIOLOGY - GENERAL ORDERABLES Performing Organization Address City/State/[facility] Co de Phone Number [facility] [address] [place] [address], from Last 3 Months Additional Health Concerns Infection Onset Date Last Indicated RSV 09/25/2024 09/25/2024 Care Teams Front Edger Relationship Specialty Start Date End Date Rebekah Napoles MD [address] [place] [phone] PCP - General Family Medicine 09/26/24
--- NOTE | 2024-10-06 13:04 | ED_ITS ---
HPI - Nausea/Vomiting/Diarrhea General Chief complaint: Nausea/Vomiting/Diarrhea Stated complaint: Vomiting, abd pain took meds Time Seen by Provider: 10/06/24 12:41 Source: patient, RN notes reviewed and old records reviewed Mode of arrival: ambulatory History of Present Illness ED Provider: Madonna Basilio PA-C HPI Narrative: 39-year-old female with a past medical history of asthma, folate deficiency, recent RSV infection diagnosed at [facility] last week presenting to the ED complaining of epigastric abdominal pain, nausea, vomiting, and inability to tolerate p.o. x 5 days. Admits was prescribed guaifenesin/dextromethorphan by [facility] for RSV, however was given medication by the pharmacy (exp 07/30) and since initiation of medication has been having pain/vomiting with inability to tolerate p.o. Denies fever, chills, diarrhea, dysuria/hematuria, suspicious food intake. Related Data Previous Rx's ?Medication ?Instructions ?Recorded [id number]-rpinxhrxolbzw-yckfgfxy 1 cap PO Q6H PRN pain #20 caps 08/13/20 50 mg-300 mg-40 mg capsule (Fioricet) cyclobenzaprine 10 mg tablet 10 mg PO Q8H #20 tabs 08/13/20 folic acid 1 mg tablet 1 mg PO DAILY #90 tabs 01/14/23 aluminum-mag hydroxide-simethicone 5 ml PO 5XD PRN dyspepsia #30 mL 10/06/24 200 mg-200 mg-20 mg/5 mL oral susp (Maalox Advanced) famotidine 20 mg tablet (Pepcid) 20 mg PO DAILY #14 tabs 10/06/24 ondansetron 4 mg disintegrating 4 mg PO Q8H PRN nausea and 10/06/24 tablet vomiting #10 tabs Allergies Allergy/AdvReac Type Severity Reaction Status Date / Time oxycodone AdvReac Hives Verified 10/06/24 10:46 Review of Systems 2 Review of Systems: Yes all other systems are reviewed and are negative Constitutional: Constitutional: Reports as per [facility] Past Medical History Attestation statement: The following information was validated with the patient. Source: old records reviewed Medical History Nipple discharge Folate deficiency Heavy menses Asthma Surgical History H/O abdominoplasty (~2016) Hx of tubal ligation (~2003) Family History Family History Maternal Grandmother Throat cancer Eye cancer Paternal Grandmother Cancer Maternal Aunt Cancer Social History Social History Household Members: None Housing: Apartment Alcohol intake: never Patient Tobacco Use Status: Current everyday Tobacco user Tobacco use type: Cigarette service: No Current occupational status: employed Physical Exam 2 Vital Signs: Vital Signs: Last Vital Signs Temp 98.2 F 10/06/24 16:39 Pulse 56 10/06/24 16:39 Resp 16 10/06/24 16:39 BP 113/71 10/06/24 16:39 Pulse Ox 98 10/06/24 16:39 O2 Del Method Room Air 10/06/24 16:39 BMI result Body Mass Index 29.2 Const: General: cooperative, healthy appearing and no acute distress O rientation/consciousness: patient oriented x3 Limitations: no limitations HEENT: Head: Yes normal to inspection and Yes atraumatic Ears: hearing grossly normal bilaterally General nose exam: Normal external nose present Face and sinus: Yes normal facial exam Eyes: General: appearance normal, both eyes and all related structures EOM: EOMs intact bilaterally Neck: Neck: Yes normal visual inspection and Yes no meningeal signs Resp: Effort & Inspection: normal respiratory effort and no respiratory distress Cardio: Rate: regular rate GI: Inspection: Yes normal to inspection Palpation (GI): Soft to palpation, Tenderness to palpation present (GI) in the epigastrum and in the RUQ; with no rebound tenderness, no guarding and not rigid : General: Yes no CVA tenderness Back/Spine/Pelvis: Back: no CVA tenderness Skin: Rashes: no rashes Wounds: no wounds Neuro: General: patient oriented x3, tone normal and no meningeal signs C ranial nerves: Yes CN's II-XII intact bilaterally Gait exam (Neuro): Normal gait present Extrem: General: Yes normal to inspection Course Course Course Narrative: -[id number]--labs reassuring. UA negative US abdomen limited IMPRESSION: Cholelithiasis. Complex septated cyst, right kidney. No hydronephrosis. No ascites. > results discussed with patient. She is tolerating p.o. in the ED without difficulty. Feels comfortable for discharge home at this time Medications Administered Discontinued Medications Generic Name Dose Route Start Last Admin Trade Name Jeremy PRN Reason Stop Dose Admin Al Hydroxide/Mg Hydroxide 30 ml 10/06/24 13:19 10/06/24 14:10 Magnesium Hydrox/Alum Hydrox 30 Ml Oral.Susp PO 10/06/24 13:20 30 ml ONCE ONE Administration Famotidine 20 mg 10/06/24 13:19 10/06/24 14:10 Famotidine/Pf 20 Mg/2 Ml Vial IVPUSH 10/06/24 13:20 20 mg ONCE ONE Administration Sodium Chloride 1,000 mls @ 999 mls/hr 10/06/24 13:00 10/06/24 15:12 Ns IV 10/06/24 14:00 Infused .Q1H1M TALI Infusion Ketorolac Tromethamine 15 mg 10/06/24 13:19 10/06/24 14:10 Ketorolac Tromethamine 15 Mg/Ml Vial IVPUSH 10/06/24 13:20 15 mg ONCE ONE Administration Ondansetron HCl 4 mg 10/06/24 12:53 10/06/24 13:07 Ondansetron Hcl 4 Mg/2 Ml Vial IVPUSH 10/06/24 12:54 4 mg ONCE ONE Administration Medical Decision Making Medical Decision Making MDM Narrative: 39-year-old female with a past medical history of asthma, folate deficiency, recent RSV infection diagnosed at [facility] last week presenting to the ED complaining of epigastric abdominal pain, nausea, vomiting, and inability to tolerate p.o. x 5 days. On exam vital signs stable, NAD, nontoxic appearing, physical exam as noted above epigastric/RUQ tenderness, no rebound or guarding, no CVAT. Concern for medication reaction due to medication vs gastroenteritis/viral illness vs cholecystitis/lithiasis vs pancreatitis. Rule out metabolic abnormalities Plan: EKG, labs, UA, IVF, antiemetic, ultrasound, p.o. trial Please refer to course for remaining clinical decision making, interpretation of labs/imaging results, and discussions with consultants and/or family members. Differential Diagnosis Differential Diagnoses: The differential diagnosis associated with the presentation includes As above Admission/Observation Consideration of admission/observation: Escalation of care including admission/observation considered Lab Data MDM Lab Attestation statement: I reviewed the patient's lab results. 10/06/24 11:13 10/06/24 11:13 Labs: Lab Results 10/06/24 10/06/24 Range/Units 11:13 11:14 WBC 8.0 (4.8-10.8) X10*3/uL RBC 5.13 (4.20-5.50) X10*6/uL Hgb 11.8 L (12.0-16.0) g/dl Hct 38.1 (37.0-47.0) % MCV 74.3 L (80.0-98.0) fL MCH 23.0 L (27.0-33.0) pg MCHC 31.0 (31.0-35.0) g/dl RDW 15.0 (11.0-16.0) % Plt Count 172 (160-400) X10*3/uL MPV 10.8 (9.4-12.3) fL Immature Gran % (Auto) 0.1 (0.0-0.4) % Neut % (Auto) 54.3 (45-73) % Lymph % (Auto) 38.4 (20-40) % Worth % (Auto) 6.5 (2-11) % Eos % (Auto) 0.5 (0-4) % Baso % (Auto) 0.2 (0-2) % Lymph # (Auto) 3.1 (1.2-4.9) X10*3/uL Worth # (Auto) 0.5 (0.1-1.2) X10*3/uL Eos # (Auto) 0.0 (0.0-0.4) X10*3/uL Baso # (Auto) 0.0 (0.0-0.2) X10*3/uL Abs Immat Gran (auto) 0.01 (0.00-0.03) X10*3/uL Absolute Neuts (auto) 4.4 (2.0-8.3) x10*3/uL Absolute Nucleated RBC 0.000 (0.0-0.012) X10*3/uL Nucleated RBC % (auto) 0.0 (0.0-0.2) /100WBC Sodium 140 (135-145) mmol/L Potassium 4.3 (3.3-5.1) mmol/L Chloride 110 H (96-108) mmol/L Carbon Dioxide 25 (22-29) mmol/L Anion Gap 9 L (12-20) BUN 5 L (9-16) mg/dL Creatinine 0.70 (0.5-1.4) mg/dL Estim Creat Clear Calc 125.8 Estimated GFR > 60 Random Glucose 83 (60-115) mg/dL Calcium 9.5 (8.4-10.2) mg/dL Magnesium 2.1 (1.6-2.6) mg/dL Total Bilirubin 0.3 (0.0-1.0) mg/dL AST 21 (5-31) U/L ALT 13 (0-31) U/L Alkaline Phosphatase 128 H (39-117) U/L Total Protein 7.9 (6.5-8.0) g/dL Albumin 4.0 (3.5-5.0) g/dL Lipase 14 (8-78) U/L Urine Color Yellow Urine Appearance Clear Urine pH 5.5 (5.0-9.0) Ur Specific Vista 1.020 (1.005-1.025) Urine Protein Negative (Neg-Trace) mg/dL Urine Glucose (UA) Negative (Negative) mg/dL Urine Ketones Trace (Negative) mg/dL Urine Blood Negative (Negative) Urine Nitrite Negative (Negative) Ur Leukocyte Esterase Negative (Negative) Urine Test NEGATIVE (NEGATIVE) Independent Interpretation I performed an independent interpretation of an: EKG and Ultrasound Radiology Impression Discussion of test interpretation with radiology: I have reviewed the radiologist's reading. External Record Review External record reviewed: Inpatient record, Office record, Outpatient record, Prior outpatient labs, Prior outpatient radiology, Primary care record and Outside ED record Tests considered The following testing was considered but not selected: As above Prescription Management I considered prescription management with: Pain Medication Chronic Conditions Patient?s care impacted by: Other Social Determinants Patient?s care significantly limited by Social Determinants of Health including: Other Social Determinant of Health Discharge Plan Discharge Clinical Impression: Cholelithiasis, Renal cyst, right Patient Disposition: Home, Self-Care Instructions: Gallstones (ED), Kidney Cyst (ED) Additional Instructions: Your blood work is reassuring Your ultrasound shows gallstones Also shows a cyst on your right kidney Please follow-up with gastroenterology in your primary care doctor in pertains to these findings Zofran as an antinausea medicine, please take as needed for nausea/vomiting Maalox and Pepcid will help with acid reduction If you are unable to eat or drink, persistent nausea/vomiting or unremitting pain return to the ED Prescriptions: New ondansetron 4 mg tablet,disintegrating 4 mg PO Q8H PRN (Reason: nausea and vomiting) Qty: 10 0RF famotidine [Pepcid] 20 mg tablet 20 mg PO DAILY Qty: 14 0RF alum-mag hydroxide-simeth [Maalox Advanced] 200-200-20 mg/5 mL suspension 5 ml PO 5XD PRN (Reason: dyspepsia) Qty: 30 0RF Rx Instructions: administer between meals and at bedtime No Action bnpzpqvwua-[id number] [Fioricet] 50-300-40 mg capsule 1 cap PO Q6H PRN (Reason: pain) Qty: 20 0RF cyclobenzaprine 10 mg tablet 10 mg PO Q8H Qty: 20 0RF folic acid 1 mg Tablet 1 mg PO DAILY Qty: 90 3RF Referrals: [facility] [place] [facility] [Provider Group] - 1 week Rebekah Napoles MD [Primary Care Provider] - 5 days Interventions: ED Discharge Assessment Last Done: 10/06/24 16:39 Discharge Date/Time: 10/06/24 16:40 Print Language: English
[2024-10-06] MEDS: ondansetron HCL 4 MG/2 ML VIAL IVPUSH (13:07)
[2024-10-06] MEDS: 0.9 % Sodium Chloride 1,000 ML 999 ML IV (13:07)
--- NOTE | 2024-10-06 13:07 | ECG_ITS ---
Test Reason : Epigastric abdominal pain Blood Pressure : */* mmHG Vent. Rate : 57 BPM Atrial Rate : 57 BPM P-R Int : 150 ms QRS Dur : 80 ms QT Int : 428 ms P-R-T Axes : -26 36 40 degrees QTcB Int : 416 ms Sinus bradycardia Otherwise normal ECG When compared with ECG of 05-Jun-2015 21:50, No significant change was found Referred By: Madonna Basilio Electronically Signed By: LAUREANO KING
[2024-10-06 13:14] LABS: Lipase 14 U/L (8-78); Magnesium 2.1 mg/dL (1.6-2.6)
[2024-10-06] MEDS: Famotidine/PF 20 MG/2 ML VIAL IVPUSH (14:10)
[2024-10-06] MEDS: Ketorolac Tromethamine 15 MG/ML VIAL IVPUSH (14:10)
[2024-10-06] MEDS: Magnesium Hydrox/Alum Hydrox 30 ML ORAL.SUSP PO (14:10)
[2024-10-06 14:39] VITALS: BP 113/71; PULSE 56; RESP 16; TEMP 36.8; O2SAT 98
[2024-10-06 16:39] VITALS: BP 113/71; PULSE 56; RESP 16; TEMP 36.8; O2SAT 98
== END 2024-10-06 16:40 | disposition home or self-care (01) ==
PROVIDERS: Physician Assistant; Emergency Provider Emergency Medicine; PCP Family Medicine
DX: K80.20 Calculus of gallbladder without cholecystitis without obstruction (principal); N28.1 Cyst of kidney, acquired; R11.2 Nausea with vomiting, unspecified; R10.13 Epigastric pain; R00.1 Bradycardia, unspecified; Z79.899 Other long term (current) drug therapy
CPT/HCPCS: 36415; 76705; 80053; 81003; 81025; 83690; 83735; 85025; 93005; 96361; 96374; 96375; 99284; 99285; J1885; J2405

== ENCOUNTER → 2024-10-06 12:53 | Outpatient (BNV) | payer MEDICAID, SELFPAY | PROVIDERS: Emergency Provider Emergency Medicine; PCP Family Medicine; Visit Provider Radiology Diagnostic Radiology | DX: K80.20 Calculus of gallbladder without cholecystitis without obstruction (principal); N28.1 Cyst of kidney, acquired | CPT/HCPCS: 76705 ==

== ENCOUNTER → 2024-10-06 13:07 | Outpatient (BNV) | payer MEDICAID, SELFPAY | PROVIDERS: Emergency Provider Emergency Medicine; PCP Family Medicine; Visit Provider Internal Medicine | DX: R00.1 Bradycardia, unspecified (principal) | CPT/HCPCS: 93010 ==

== ENCOUNTER 2024-12-19 12:07 | Outpatient (REF) | payer MEDICAID, SELFPAY ==
[2024-12-19 13:35] LABS: Immature Retic Fraction 20.9 % (3.0-15.9); Retic HGB Equivalent 24.9 pg (30.0-35.0); Reticulocyte Percent 1.2 % (0.5-1.8); Reticulocytes Absolute 0.067 X10*6/uL (0.026-0.095)
[2024-12-19 13:57] LABS: Iron 57 mcg/dL (30-160); Percent Iron Saturation 15 % (15-50); Total Iron Binding Capacity 386 mcg/dL (228-428); Unsaturated Iron Binding 329 ug/dL
[2024-12-19 14:13] LABS: Ferritin 6 ng/mL (10-122); Vitamin D 25-OH Total 27.8 ng/mL (>30)
[2024-12-19 14:25] LABS: Parathyroid Hormone Intact 103.3 pg/mL (8.7-77.1)
[2024-12-19 14:51] LABS: Folate 6.4 ng/mL (> or = 4.0); Vitamin B12 303 pg/mL (200-900)
--- OUTSIDE RECORDS SUMMARY | 2024-12-19 14:51 | XMS_ITS | Clinical Summary ---
Author Organization [facility] Address [address] [facility] [address] [place] [address] Care Team Providers Care Escalator Attendant Name Role Phone Rebekah Napoles MD Primary Care Provider [phone] Allergies No known active allergies Medications ergocalciferol (Vitamin D-2) 1.25 MG (05991 UT) capsule Take 1 capsule by mouth once a week. 1 Active ascorbic acid (Vitamin C) 500 MG tablet Take by mouth every 12 (twelve) hours. 2 Active ferrous sulfate 325 (65 Fe) MG EC tablet Take 1 tablet by mouth every 12 (twelve) hours. 2 Active folic acid (Folvite) 800 MCG tablet Take 1 tablet (800 mcg) by mouth in the morning. 90 tablet 1 3 Active naproxen (Naprosyn) 500 MG tablet take 1 tablet by oral route 2 times a day as needed for pain, take with food 30 tablet 1 3 Active albuterol (Proventil HFA) 108 (90 Base) MCG/ACT inhaler Use 2 puffs every 6 hours as needed for difficulty breathing 18 g 3 3 Active albuterol (Ventolin HFA) 108 (90 Base) MCG/ACT inhaler INHALE 2 PUFFS BY MOUTH EVERY 6 HOURS IF NEEDED FOR SHORTNESS OF BREATH 18 g 3 4 Active nicotine polacrilex (Commit) 4 MG lozengeIndicati ons:Tobacco dependence Dissolve 1 lozenge (4 mg) in the mouth every 2 (two) hours if needed for smoking cessation. 100 lozenge 1 4 Active nicotine (Nicoderm CQ) 21 MG/24HR patchIndication s:Tobacco dependence If concern for nightmares, enter a Patch Removal Time in order question to remove before bedtime. 42 patch 1 4 Active cyclobenzaprine (Flexeril) 10 MG tablet Take 1 tablet (10 mg) by mouth 3 times daily for 10 days. 30 tablet 4 Active Active Problems Problem Noted Date Diagnosed Date Cholelithiasis 11/10/2024 Headache 11/10/2024 Iron deficiency 11/10/2024 Bilateral wrist pain 12/30/2023 Assessment & Plan (12/30/2023 1:05 PM EDT): - possible carpal tunnel syndrome, possible arthritis of bilateral thumb, will evaluate with XR and NCT and EMG Chronic pain of both knees 12/30/2023 Assessment & Plan (12/30/2023 1:06 PM EDT): - recommended for exercise program, patient does not want to try PT - recommended exercising to lose weight, patient is hesitant to suggestion - will evaluate with XR Hip stiffness, left 12/30/2023 Assessment & Plan (12/30/2023 1:06 PM EDT): - will consider evaluating with XR in the future. Folic acid deficiency anemia 01/02/2023 Assessment & Plan (12/30/2023 10:39 AM EDT): - continue oral supplementation Assessment & Plan (05/04/2023 1:36 PM EDT): - continue oral supplementation Assessment & Plan (01/02/2023 7:07 AM EDT): - continue oral supplementation Renal cyst, right 12/31/2022 Assessment & Plan (12/30/2023 1:03 PM EDT): -US on 07/05/18: Bosniak 2F cyst in the upper pole of the right kidney measuring 2.2 cm -US on 02/01/19: Bosniak 2F cyst in the R kidney -US on 03/26/20: Stable 2.2 cm simple cyst -US on 05/23/21; Stable simple cyst on the upper pole of the right kidney -Renal US ordered in December 2022 but pt did not complete. - CT scan in APR 2023 showed small kidney cyst - will update ultrasound Assessment & Plan (05/04/2023 1:35 PM EDT): -US on 07/05/18: Bosniak 2F cyst in the upper pole of the right kidney measuring 2.2 cm -US on 02/01/19: Bosniak 2F cyst in the R kidney -US on 03/26/20: Stable 2.2 cm simple cyst -US on 05/23/21; Stable simple cyst on the upper pole of the right kidney -Renal US ordered in December 2022 but pt did not complete. -will evaluate with CT Scan ordered today for LLQ pain Assessment & Plan (01/02/2023 7:01 AM EDT): -US on 07/05/18: Bosniak 2F cyst in the upper pole of the right kidney measuring 2.2 cm -US on 02/01/19: Bosniak 2F cyst in the R kidney -US on 03/26/20: Stable 2.2 cm simple cyst -US on 05/23/21; Stable simple cyst on the upper pole of the right kidney -repeat US Tobacco dependence 12/31/2022 Assessment & Plan (12/31/2023 10:00 AM EDT): - tried nicotine patch; patient states 21 mg was not adequate. Patient states she did not receive gums. - re-trial with nicotine patch and gum. Assessment & Plan (05/04/2023 1:36 PM EDT): Rx Nicotine patch as per patient request Assessment & Plan (12/31/2022 1:00 PM EDT): Rx Nicotine patch as per patient request Nipple discharge 12/31/2022 Assessment & Plan (12/31/2023 10:02 AM EDT): - Normal mammo and US in 2019 - Normal mammo and US in 2020 - Normal prolactin level and TSH - evaluated by surgeon for R breast mass in 2020, s/p biopsy which was benign Assessment & Plan (01/02/2023 7:10 AM EDT): - Normal mammo and US in 2019 - evaluated by surgeon for R breast mass in 2020, s/p biopsy which was benign - check lab again; likely benign cause Obesity 09/14/2016 Iron deficiency anemia 01/20/2016 Assessment & Plan (12/30/2023 10:39 AM EDT): - likely AUB - 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 - received Iron Infusions in January and February 2023 from [employer] - pt also has folic acid deficiency; continue folic acid supplementation Assessment & Plan (05/04/2023 1:36 PM EDT): - likely AUB - 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 - received Iron Infusions in January and February 2023 from [employer] - pt also has folic acid deficiency; continue folic acid supplementation Assessment & Plan (01/02/2023 7:07 AM EDT): - likely AUB - 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 - pt requests iron infusion - refer to hematology service - pt also has folic acid deficiency; continue folic acid supplementation Allergic rhinitis 04/22/2015 Assessment & Plan (12/30/2023 10:40 AM EDT): -Continue Loratadine, prn Assessment & Plan (12/31/2022 12:57 PM EDT): -Continue Loratadine, prn Asthma 11/29/2014 Assessment & Plan (12/30/2023 10:38 AM EDT): -Last exacerbation in Aug 2020, seen in [facility] ED, CTA negative for PE -Oct 2019, Dx bronchitis, Rx prednisone and azithromycin -Previously on Singulair and Flovent, which were discontinued due to poor adherence and less symptom -Continue Albuterol prn -Strongly advised to work on smoking cessation Assessment & Plan (01/02/2023 7:06 AM EDT): -Last exacerbation in Aug 2020, seen in [facility] ED, CTA negative for PE -Oct 2019, Dx bronchitis, Rx prednisone and azithromycin -Previously on Singulair and Flovent, which were discontinued due to poor adherence and less symptom -Continue Albuterol prn -Strongly advised to work on smoking cessation Encounters Date Type Department Care Team Description 11/29/2024 Population Health Risk Score [facility] () Department [address] [phone] Provider, Population Health Generic 11/09/2024 Telephone [facility] [address] [place] [address] [phone] Rebekah Napoles MD chart prep 11/01/2024 Patient Outreach [facility] [address] [place] [address] [phone] Rebekah Napoles MD Pre-visit Planning (Pre-visit planning - LVM ) 10/06/2024 Orders Only [address] [address] Rebekah Napoles MD Cyst of right kidney (Primary Dx); Anemia due to folic acid deficiency, unspecified deficiency type; Routine screening for STI (sexually transmitted infection); Screening for lipid disorders; Screening for diabetes mellitus; Microcytic anemia; Vitamin D deficiency 10/04/2024 Telephone [facility] [address] [place] [address] [phone] Rebekah Napoles MD Lab Orders 09/27/2024 Orders Only [facility] [address] [place] [address] ProviderDavid MD from Last 3 Months Immunizations Name Administration Dates Next Due HPV, Quadrivalent 09/07/2012,05/02/2012,03/03/20 12 Influenza, IIV3, injectable 08/14/2014 Influenza, Split (incl. pravin fied surface antigen) 06/20/2012 Pneumococcal Polysaccharide PPSV23 08/14/2014 Tdap 01/25/2021,08/14/2014 Social History Tobacco Use Types Packs/Day Years Used Date Smoking Tobacco: Every Day Cigarettes Passive Smoke Exposure: Current Smokeless Tobacco: Never Alcohol Use Standard Drinks/Week Comments Yes 0 (1 standard drink = 0.6 oz pur e alcohol) once a week Depression Answer Date Recorded Patient Health Questionnaire-9 Score 0 12/30/2023 Patient Health Questionnaire-9 Score 0 12/30/2023 Last PHQ-9: Questionnaire Data Not on file 0 12/30/2023 Housing Stability Answer Date Recorded What is your housing situation today? I have ishan treviño 12/21/[address] you li ve. Do you have problems with any of the following? None of the above 12/21/2023 Food Insecurity Answer Date Recorded Within the past 12 months, y ou worried that your food would run out before you got money to buy more: Never True 12/21/2023 Within the past 12 months,th e food you bought just didn't last and you didn't have enough money to get more: Never True Transportation Answer Date Recorded In the past 12 months, has l ack of transportation kept you from medical appts, meetings, work or from getting things needed for daily living? No 12/21/2023 Utilities Answer Date Recorded In the past 12 months, has t he electric, gas, oil or water company threatened to shut off services in your home? No 12/21/2023 Depression Answer Date Recorded Patient Health Questionnaire-2 Score 0 12/30/2023 Internet Access Answer Date Recorded Internet Access Q1 Yes 06/06/2024 Internet Access Q2 Not on file 06/06/2024 Comments Unknown Sex and Gender Information Value Date Recorded Sex Assigned at Female 07/06/2022 10:22 AM EDT Legal Sex Female 10:22 AM EDT Gender Identity Female 07/06/2022 10:22 AM EDT Sexual Orientation Straight 07/06/2022 10 :22 AM EDT Last Filed Vital Signs Vital Sign Reading Time Taken Comments Blood Pressure 120/80 03/13/2024 5:54 PM EDT Pulse 77 03/13/2024 5:54 PM EDT Temperature 36 ??C (96.8 ??F) 03/13/2024 5:5 4 PM EDT Respiratory Rate 20 03/13/2024 5:54 PM EDT Oxygen Saturation 100% 03/13/2024 5:5 4 PM EDT Inhaled Oxygen Concentration - - Weight 89.8 kg (198 lb) 03/13/2024 5:54 PM EDT Pt denied getting weight. Pt stated I was weighed yesterday Height 172.7 cm (5' 8 ) 03/13/2024 5:54 PM EDT Body Mass Index 30.11 03/13/2024 5:54 PM EDT Plan of Treatment Upcoming Encounters Date Type Department Care Team (Late st Contact Info) Description 01/15/2025 3:30 PM EDT Office Visit [facility] [address] [place] [address] Rebekah Napoles MD [address] [place] [address] Health Maintenance Due Date Last Done Comments Alcohol/Substance Use Screening 1998 Family Planning (PISQ) 2001 Hepatitis B Vaccines (1 of 3 - 19+ 3-dose series) 2005 Pap Smear 2007 Pneumococcal Vaccine: Pediatrics (0 to 5 Years) and At-Risk Patients (6 to 49) Years) (2 of 2 - PCV) 08/14/2015 08/14/2014 Cervical Cancer Screening 06/08/2022 HPV/Cotest 06/08/2022 06/08/2017 COVID-19 Vaccine ( - season) 2024 Influenza Vaccine (#1) 2024 08/14/2014, 2011 SDOH Screening 12/20/2024 12/21/2023 Depression Screening 12/29/2024 12/30/2023, 12/30/19 24 Tobacco Screening 03/13/2025 03/13/2024 Lipid Panel 12/29/2028 12/30/2023 DTaP/Tdap/Td Vaccines (3 - Td or Tdap) 01/25/2031 01/25/2021, 08/14/2014 Zoster Vaccines (1 of 2) 2036 RSV Patients and Patients Aged 60 years or older (1 - 1-dose 75+ series) 2061 HPV Vaccines Completed 09/07/2012, 04/07, 03/03/2012 HIV Screening Completed 12/30/2023, 04/07, 11/23/2022, Additional history exists Hepatitis C Screening Completed 12/30/2023 , 05/04/2023, 11/23/2022, Additional history exists HIB Vaccines Aged Out No longer eligi ble based on patient's age to complete this topic Hepatitis A Vaccines Aged Out No long er eligible based on patient's age to complete this topic IPV Vaccines Aged Out No longer eligi ble based on patient's age to complete this topic Meningococcal Vaccine Aged Out No alec xochitl eligible based on patient's age to complete this topic RSV under 20 months Aged Out No longe r eligible based on patient's age to complete this topic Rotavirus Vaccines Aged Out No longer eligible based on patient's age to complete this topic Procedures Procedure Name Priority Date/Time Associated Diagnosis Comments PTH, INTACT WITHOUT CALCIUM Routine 12/19/2024 12:11 PM EDT Vitamin D deficiency VITAMIN D,25-OH,TOTAL,IA Routine 12/19/2024 12:11 PM EDT Vitamin D deficiency RETICULOCYTE COUNT Routine 12/19/2024 12 :11 PM EDT Anemia due to folic acid deficiency, unspecified deficiency type IRON AND TOTAL IRON BINDING CAPACITY Routine 12/19/2024 12:11 PM EDT Anemia due to folic acid deficiency, unspecified deficiency type FERRITIN Routine 12/19/2024 12:11 PM EDT Anemia due to folic acid deficiency, unspecified deficiency type US ABDOMEN LIMITED Routine 10/06/2024 1: 30 PM EST HCG, QL, URINE Routine 10/06/2024 11:14 AM EST Cyst of right kidney URINALYSIS WITH REFLEX MICROSCOPIC Routine 10/06/2024 11:14 AM EST Cyst of right kidney COMPREHENSIVE METABOLIC PANEL Routine 10/06/2024 11:13 AM EST Cyst of right kidney CBC WITH AUTO DIFFERENTIAL Routine 10/06/2024 11:13 AM EST Cyst of right kidney CT ABDOMEN PELVIS WO CONTRAST Routine 09/26/2024 2:31 PM EST HEPATITIS C AB W/REFL TO HCV RNA, QN, PCR Routine 12/30/2023 11:06 AM EDT Routine screening for STI (sexually transmitted infection) HIV 1/2 ANTIGEN/ANTIBODY, FOURTH GENERATION W/RFL Routine 12/30/2023 11:06 AM EDT Routine screening for STI (sexually transmitted infection) LIPID PANEL WITH REFLEX TO DIRECT LDL Routine 12/30/2023 11:06 AM EDT Class 1 obesity due to excess calories without serious comorbidity with body mass index (BMI) of 30.0 to 30.9 in adult [facility] HISTORICAL HPV MRNA E6/E7 Routine 06/08/2017 1:23 PM EDT from Last 3 Months or Most Recently Relevant to Health Maintenance Results * (ABNORMAL) Vitamin D, 25-Hydroxy, Total, Immunoassay (12/19/2024 12:11 PM EDT) [facility] Vitamin D 25-OH Total 27.8(L) >30 ng/mL [facility] Comment: Health Based Reference Values*< 20 ??ng/mL ??[id number] ng/mL ??Insufficient> 30 ??ng/mL ??Sufficient*Robert CASTRO. N Engl J Med. 2007;357:266-280There is no well-established upper level of normal vitamin Dlevels. Some laboratories use 50 ng/mL as an upper limit ofnormal. However, toxicity is patient-dependent and may occurat any level. Careful correlation with the patient'spresentation is necessary and, if there is concern forvitamin D toxicity, treatment should be consideredirrespective of the serum level.Care must be taken in interpreting Vitamin D results fromdifferent laboratories and methodologies. ??Published datademonstrated that results from patients undergoinghemodialysis may show a negative bias when tested withvarious automated 25-OH vitamin D assays when compared toLC- MS/MS.When testing samples from patients whose predominant form ofVitamin D is Vitamin D2, such as patients receiving VitaminD2 supplementation, results that are subtherapeutic shouldbe confirmed with another method such as LC-MS/MS. Blood Venous blood specimen / Unknown 12/19/2024 12:11 PM EDT 12/19/2024 1:20 PM EDT Rebekah Napoles MD LAB BLOOD ORDERABLES Final Resul t Performing Organization Address [facility] de Phone Number [facility] [address] [place] [phone] * Iron And Total Iron Binding Capacity (12/19/2024 12:11 PM EDT) Iron 57 30 - 160 mcg/dL [facility] Total Iron Binding Capacity 386 228 - 428 mcg/dL [facility] Percent Iron Saturation 15 15 - 50 % [facility] Unsaturated Iron Binding 329 ug/dL [facility] Blood Venous blood specimen / Unknown 12/19/2024 12:11 PM EDT 12/19/2024 1:20 PM EDT Rebekah Napoles MD LAB BLOOD ORDERABLES Final Resul t Performing Organization Address [facility] Number [facility] [address] [place] [phone] * (ABNORMAL) PTH, Intact Without Calcium (12/19/2024 12:11 PM EDT) Parathyroid Hormone, Intact 103.3(H) 8.7 - 77.1 pg/mL [facility] Blood Venous blood specimen / Unknown 12/19/2024 12:11 PM EDT 12/19/2024 1:20 PM EDT Rebekah Napoles MD LAB BLOOD ORDERABLES Final Resul t Performing Organization Address [facility] Co de Phone Number [facility] [address] [place] [phone] * (ABNORMAL) Ferritin (12/19/2024 12:11 PM EDT) Ferritin 6(L) 10 - 122 ng/mL [facility] Blood Venous blood specimen / Unknown 12/19/2024 12:11 PM EDT 12/19/2024 1:20 PM EDT us Rebekah Napoles MD LAB BLOOD ORDERABLES Final Resul t [facility] [address] [place] [phone] [phone] * US Abdomen Limited (10/06/2024 1:30 PM EST) Anatomical Region Laterality Modality Abdomen Ultrasound 10/06/2024 1:30 PM EST Narrative 10/06/2024 2:35 PM EST ? [facility] ?[address] ?[place] [address] ? Ultrasound Report ? Signed ? Patient: Verónica Starkey ?MR# ?? : [id number] ? : 1985 ?Acct:[id number] ? Age/Sex: 39 / F ?ADM Date: 10/06/24 ? Loc: HO.ED ? Attending Dr: ? Ordering Physician: Madonna Basilio ?? Date of Service: 10/06/24 ?? Procedure(s): US abdomen limited ?? Accession Number(s): [id number] ? cc: Madonna Basilio; Rebekah Napoles MD ? EXAMINATION: ?? US ABDOMEN LIMITED ? CLINICAL INFORMATION: ?? Epigastric/right upper quadrant pain. Nausea and vomiting.. ? COMPARISON: ?? None available. ? TECHNIQUE: ?? Real-time imaging of the right upper quadrant abdominal viscera. ? FINDINGS: ? PANCREAS: No peripancreatic fluid collections. ? LIVER: Increased echotexture. No gross solid or cystic lesion. No ?? nodular surface. No intrahepatic biliary ductal dilatation. ? GALLBLADDER: There are multiple layering intraluminal hyperechoic ?? lesions with posterior shadowing. No pericholecystic fluid collection ?? or gallbladder wall thickening. ? COMMON BILE DUCT: 3 mm.. ? RIGHT KIDNEY: 11 cm. Normal renal cortical thickness. Normal ?? echotexture. There is a 3.1 cm septated anechoic lesion in the ?? midportion. No hydronephrosis.. ? FREE FLUID: None. ? US/US abdomen limited ?? IMPRESSION: ?? Cholelithiasis. ?? Complex septated cyst, right kidney. ?? No hydronephrosis. ?? No ascites. ? Electronically signed by: ??Clinton Capps MD ??10/06/2024 02:25 PM ?? EST ? Dictated By: ?Clinton Naranjo MD ? Signed By: ?<Electronically signed by Clinton Lopez MD in OV> ? 10/06/24 1425 ? DD/ 1330 ? TD/TT: 10/06/24 1400 ? Software Quality Assurance Engineer: ? Procedure Note Yovani Mcqueen - 10/06/2024 [place] [phone] Ultrasound Report Signed Patient: Verónica Starkey CMR# : [id number] : 1985Acct:[id number] Age/Sex: 39 / FADM Date: 10/06/24 Loc: HO.ED Attending Dr: Ordering Physician: Madonna Basilio Date of Service: 10/06/24 Procedure(s): US abdomen limited Accession Number(s): [id number] cc: Madonna Basilio; Rebekah Napoles MD EXAMINATION: US ABDOMEN LIMITED CLINICAL INFORMATION: Epigastric/right upper quadrant pain. Nausea and vomiting.. COMPARISON: None available. TECHNIQUE: Real-time imaging of the right upper quadrant abdominal viscera. FINDINGS: PANCREAS: No peripancreatic fluid collections. LIVER: Increased echotexture. No gross solid or cystic lesion. No nodular surface. No intrahepatic biliary ductal dilatation. GALLBLADDER: There are multiple layering intraluminal hyperechoic lesions with posterior shadowing. No pericholecystic fluid collection or gallbladder wall thickening. COMMON BILE DUCT: 3 mm.. RIGHT KIDNEY: 11 cm. Normal renal cortical thickness. Normal echotexture. There is a 3.1 cm septated anechoic lesion in the midportion. No hydronephrosis.. FREE FLUID: None. US/US abdomen limited IMPRESSION: Cholelithiasis. Complex septated cyst, right kidney. No hydronephrosis. No ascites. Electronically signed by: Clinton Capps MD 10/06/2024 02:25 PM EST Dictated By: Clinton Naranjo MD Signed By: <Electronically signed by Clinton Lopez MDin OV> 10/06/24 1425 DD/ 1330 TD/TT: 10/06/24 1400 Software Quality Assurance Engineer: [facility] External Provider IMG US PROCEDURES Final Result * HCG, Qualitative, Urine (10/06/2024 11:14 AM EST) Urine NEGATIVE NEGATIVE [facility] Comment:This test was develo ped to detect early . Falsenegative results may occur after the 5th - 7th week ofpregnancy when using this test method. If clinicallyindicated, consider a serum hCG. 10/06/2024 11:1 4 AM EST 10/06/2024 11:18 AM EST Generic External Data Provider LAB URINE ORDERAB LES Final Result [facility] [address] [place] [phone] * Urinalysis w/reflex microscopic (10/06/2024 11:14 AM EST) Color Urine Yellow [facility] Appearance Urine Clear [facility] PH 5.5 5.0 - 9.0 [facility] Glucose Urine UA Negative Negative mg/dL [facility] Urine Blood Negative Negative [facility] Specific Martha - Urine 1.020 1.005 - 1.025 [facility] Urine Protein Negative Neg-Trace mg/dL [facility] Urine Ketones Trace Negative mg/dL [facility] Nitrite Urine Negative Negative [facility] Leukocyte Esterase Urine Negative Negative [facility] 10/06/2024 11:1 4 AM EST 10/06/2024 11:18 AM EST Narrative [facility] - 10/06/2024 11:23 AM EST [id number], Clean Catch us Generic External Data Provider LAB URINE ORDERAB LES Final Result [facility] [address] [place] [phone] * (ABNORMAL) CBC auto differential (10/06/2024 11:13 AM EST) White Blood Count 8.0 4.8 - 10.8 X10*3/uL [facility] Red Blood Count 5.13 4.20 - 5.50 X10*6/uL [facility] Hemoglobin 11.8(L) 12.0 - 16.0 g/dl [facility] Hematocrit 38.1 37.0 - 47.0 % [facility] Mean Corpuscular Volume 74.3(L) 80.0 - 98.0 fL [facility] Mean Corpuscular Hemoglobin 23.0(L) 27.0 - 33.0 pg [facility] Mean Corpuscular HGB Conc 31.0 31.0 - 35.0 g/dl [facility] Red Cell Distribution Width 15.0 11.0 - 16.0 % [facility] Platelet Count 172 160 - 400 X10*3/uL [facility] Mean Platelet Volume 10.8 9.4 - 12.3 fL [facility] Neutrophils Percent Auto 54.3 45 - 73 % [facility] Imm Gran Pct Auto 0.1 0.0 - 0.4 % [facility] Lymphocytes Percent Auto 38.4 20 - 40 % [facility] Monocytes Percent Auto 6.5 2 - 11 % [facility] Eosinophils Percent Auto 0.5 0 - 4 % [facility] Basophils Percent Auto 0.2 0 - 2 % [facility] NRBC Pct Auto 0.0 0.0 - 0.2 /100WBC [facility] Neutrophils Absolute Auto 4.4 2.0 - 8.3 x10*3/uL [facility] Imm Gran Abs Auto 0.01 0.00 - 0.03 X10*3/uL [facility] Lymphocytes Absolute Auto 3.1 1.2 - 4.9 X10*3/uL [facility] Monocytes Absolute Auto 0.5 0.1 - 1.2 X10*3/uL [facility] Eosinophils Absolute Auto 0.0 0.0 - 0.4 X10*3/uL [facility] Basophils Absolute Auto 0.0 0.0 - 0.2 X10*3/uL [facility] NRBC Abs Auto 0.000 0.0 - 0.012 X10*3/uL [facility] 10/06/2024 11:1 3 AM EST 10/06/2024 11:18 AM EST us Generic External Data Provider LAB BLOOD ORDERAB LES Final Result Performing Organization Address City/State/[facility] Co de Phone Number [facility] [address] [place] [phone] * (ABNORMAL) Comprehensive Metabolic Panel (10/06/2024 11:13 AM EST) Sodium 140 135 - 145 mmol/L [facility] Potassium 4.3 3.3 - 5.1 mmol/L [facility] Chloride 110(H) 96 - 108 mmol/L [facility] Carbon Dioxide 25 22 - 29 mmol/L [facility] Anion Gap 9(L) 12 - 20 [facility] Urea Nitrogen (BUN) 5(L) 9 - 16 mg/dL [facility] Creatinine, Serum 0.70 0.5 - 1.4 mg/dL [facility] Creatinine Clr Calc Pharmacy 125.8 [facility] Comment:Provided height and weight: 172.72 cm,87.09 kg.eGFR (calculated from the MDRD study equation) and eCrCl(calculated from the Cockcroft-Gault equation) are based ondifferent parameters and may not yield comparable results.If eCrCl result is absurd, please check patient'sheight/weight. Estimated Glomerular Filt Rate >60 [facility] Comment:Chronic Kidney Disea se: Estimated GFR < 60 mL/min/1.59r1Wwmodj Kidney Disease: Estimated GFR < 15 mL/min/1.73m2 Glucose 83 60 - 115 mg/dL [facility] Calcium 9.5 8.4 - 10.2 mg/dL [facility] Bilirubin, Total 0.3 0.0 - 1.0 mg/dL [facility] Aspartate Amino Transferase 21 5 - 31 U/L [facility] Alanine Aminotransferase 13 0 - 31 U/L [facility] Total Protein 7.9 6.5 - 8.0 g/dL [facility] Albumin Level 4.0 3.5 - 5.0 g/dL [facility] Alkaline Phosphatase 128(H) 39 - 117 U/L [facility] 10/06/2024 11:1 3 AM EST 10/06/2024 11:18 AM EST us Generic External Data Provider LAB BLOOD ORDERAB LES Final Result [facility] [address] [place] [phone] * CT Abdomen Pelvis w/o Contrast (09/26/2024 2:31 PM EST) Anatomical Region Laterality Modality Body, Pelvis, Abdomen Computed T omography us Historical Provider MD PETER CT PROCEDURES Final R esult * (ABNORMAL) Lipid Panel with Reflex to Direct LDL (12/30/2023 11:06 AM EDT) Triglycerides 90 <150 mg/dL [facility] Comment:Desirable Triglyceri de: less than 150 mg/dLBorderline High Triglyceride 150-199 mg/dLHigh Triglyceride: 200-499 mg/dLVery High Triglyceride: greater than or equal to 5OO mg/dL Cholesterol 164 <200 mg/dL [facility] Comment:Desirable Cholestero l: less than 200 mg/dLBorderline High Cholesterol: 200-239 mg/dLHigh Cholesterol: greater than 239 mg/dL LDL Cholesterol Calculated 100(H) <100 mg/dL [facility] Comment:Desirable LDL: less than 100 mg/dLNear Optimal/Above Optimal LDL: 110- 129 mg/dLBorderline High LDL: 130-159 mg/dLHigh LDL: 160-189 mg/dLVery High LDL: greater than or equal to 190 mg/dL HDL Cholesterol 46 >40 mg/dL [facility] Comment:Desirable HDL: great er than 40 mg/dL Note: This HDL assay may give artificially low results in patients with liver disease. Blood 12/30/2023 11:0 6 AM EDT 12/30/2023 1:30 PM EDT Rebkeah Napoles MD LAB BLOOD ORDERABLES Final Resul t Performing Organization Address City/[facility]/ZIP Co de Phone Number [facility] [address] [place] [phone] * Hepatitis C Antibody with Reflex to HCV, RNA, Quantitative, Real-Time PCR (12/30/2023 11:06 AM EDT) Hepatitis C Antibody Nonreactive Nonreactive [facility] Comment:Antibodies to HCV no t detected; does not exclude early acuteHCV infection. Blood Venous blood specimen / Unknown 12/30/2023 11:06 AM EDT 12/30/2023 1:30 PM EDT Rebekah Napoles MD LAB BLOOD ORDERABLES Final Resul t Performing Organization Address City/[facility]/ZIP Co de Phone Number [facility] [address] [place] [phone] * HIV-1/2 Antigen and Antibodies, Fourth Generation, with Reflexes (12/30/2023 11:06 AM EDT) HIV AB/AG Nonreactive Nonreactive [facility] Comment:HIV-1 p24 Ag and/or HIV-1/HIV-2 Ab not detected.A test result that is nonreactive does not exclude thepossibility of exposure to or infection with HIV-1 and/orHIV-2. Nonreactive results in this assay for individualswith prior exposure to HIV-1 and/or HIV-2 may be due toantigen and antibody levels that are below the limit ofdetection of this assay.The [employer]oco HIV Ag/Ab Combo assay result andsupplemental assay results should be interpreted inconjunction with the patient's clinical presentation,history and other laboratory results. If the results areinconsistent with clinical evidence, additional testing issuggested to confirm the result. Blood Venous blood specimen / Unknown 12/30/2023 11:06 AM EDT 12/30/2023 1:30 PM EDT us Rebekah Napoles MD LAB BLOOD ORDERABLES Final Resul t [facility] [address] [place] [phone] * HPV mRNA E6/E7 (06/08/2017 1:23 PM EDT) HPV mRNA E6/E7 Not Detected NOT DETECTED [facility] Comment: This test was performed using the APTIMA(R) HPV Assay ([employer] This assay detects E6/E7 viral messenger RNA (mRNA) from 14 high-risk HPV types (16,18,31,33,35,39,45,51, 52,56,58,59,66,68). For additional information please refer to: http://education.ConcernTrak.uStudio/faq/DDD639e6 (This link is being provided for informational/ educational purposes only.) Test Performed by [facility], [employer], [address] [place] [address] Michael Virgen M.D., Ph.D., Director of Laboratories , [facility] [id number] Please note: ??Effective 05/18/2016, HPV testing will be performed using [employer]'s APTIMA test which targets mRNA. Detecting mRNA instead of DNA, as in older methods, offers significant improvements in specificity. 06/08/2017 1:23 PM EDT us Rebekah Napoles MD HISTORICAL/NON ORDERABLE LABS Fi nal Result [facility] [address] from Last 3 Months or Most Recently Relevant to Health Maintenance [place] [address] [address] [place] Care Teams Escalator Attendant Relationship Specialty Start Date End Date Rebekah Napoles MD [address] [place] [address] PCP - General Family Medicine 06/06/12
--- OUTSIDE RECORDS SUMMARY | 2024-12-19 14:51 | XMS_ITS | Encounter Summary ---
Author Organization [employer] Address [address] [facility] [address] [place] [address] Care Team Providers Care Stove Carriage Operator Name Role Phone Rebekah Napoles MD Primary Care Provider [phone] Encounter Details Date Type Department Care Team (Late st Contact Info) Description 10/06/2024 Orders Only [facility] [address] [place], [place] [phone] Rebekah Napoles MD [address] [place] [address] Cyst of right kidney (Primary Dx); Anemia due to folic acid deficiency, unspecified deficiency type; Routine screening for STI (sexually transmitted infection); Screening for lipid disorders; Screening for diabetes mellitus; Microcytic anemia; Vitamin D deficiency Social History Tobacco Use Types Packs/Day Years [...] Orientation Straight 07/06/2022 10 :22 AM EDT documented as of this encounter Plan of Treatment Upcoming Encounters Date Type Department Care Team (Late st Contact Info) Description 01/15/2025 3:30 PM EDT Office Visit [facility] [address] [place] [phone] Rebekah Napoles MD [address] [place] [address] Pending Results Name Type Priority Associated Diagnoses Date /Time Reticulocyte Count Lab Routine Anemia due to folic acid deficiency, unspecified deficiency type 12/19/2024 12:11 PM EDT Scheduled Orders Name Type Priority Associated Diagnoses Orde r Schedule Hemoglobin Electrophoresis Lab Routine Anemia due to folic acid deficiency, unspecified deficiency type Expected: 10/06/2024 (Approximate), Expires: 10/06/2025 Syphilis Screen Lab Routine Routine screening for STI (sexually transmitted infection) Expected: 10/06/2024 (Approximate), Expires: 10/06/2025 Hepatitis C Antibody with Reflex to HCV, RNA, Quantitative, Real-Time PCR Lab Routine Routine screening for STI (sexually transmitted infection) Expected: 10/06/2024 (Approximate), Expires: 10/06/2025 HIV-1/2 Antigen and Antibodies, Fourth Generation, with Reflexes Lab Routine Routine screening for STI (sexually transmitted infection) Expected: 10/06/2024 (Approximate), Expires: 10/06/2025 Hepatitis B surface antigen, EIA Lab Routine Routine screening for STI (sexually transmitted infection) Expected: 10/06/2024 (Approximate), Expires: 10/06/2025 Pathologist Review - CBC Lab Routine Anemia due to folic acid deficiency, unspecified deficiency type Expected: 10/06/2024 (Approximate), Expires: 10/06/2025 Vitamin B12 (Cobalamin) and Folate Panel, Serum Lab Routine Anemia due to folic acid deficiency, unspecified deficiency type Expected: 10/06/2024 (Approximate), Expires: 10/06/2025 documented as of this encounter Procedures Procedure Name Priority Date/Time Associated Diagnosis Comments VITAMIN D,25-OH,TOTAL,IA Routine 12/19/2024 12:11 PM EDT Vitamin D deficiency IRON AND TOTAL IRON BINDING CAPACITY Routine 12/19/2024 12:11 PM EDT Anemia due to folic acid deficiency, unspecified deficiency type RETICULOCYTE COUNT Routine 12/19/2024 12 :11 PM EDT Anemia due to folic acid deficiency, unspecified deficiency type PTH, INTACT WITHOUT CALCIUM Routine 12/19/2024 12:11 PM EDT Vitamin D deficiency FERRITIN Routine 12/19/2024 12:11 PM EDT Anemia due to folic acid deficiency, unspecified deficiency type US ABDOMEN LIMITED Routine 10/06/2024 1: 30 PM EST HCG, QL, URINE Routine 10/06/2024 11:14 AM EST Cyst of right kidney URINALYSIS WITH REFLEX MICROSCOPIC Routine 10/06/2024 11:14 AM EST Cyst of right kidney CBC WITH AUTO DIFFERENTIAL Routine 10/06/2024 11:13 AM EST Cyst of right kidney COMPREHENSIVE METABOLIC PANEL Routine 10/06/2024 11:13 AM EST Cyst of right kidney documented in this encounter Results * (ABNORMAL) PTH, Intact Without Calcium (12/19/2024 12:11 PM EDT) Parathyroid Hormone, Intact 103.3(H) 8.7 - 77.1 pg/mL [facility] Blood Venous blood specimen / Unknown 12/19/2024 12:11 PM EDT 12/19/2024 1:20 PM EDT us Rebekah Napoles MD LAB BLOOD ORDERABLES Final Resul t [facility] [address] [place] [phone] * (ABNORMAL) Vitamin D, 25-Hydroxy, Total, Immunoassay (12/19/2024 12:11 PM EDT) Vitamin D 25-OH Total 27.8(L) >30 ng/mL [facility] Comment: Health Based Reference Values*< 20 ??ng/mL ??Werpzkvao32-71 ng/mL ??Insufficient> 30 ??ng/mL ??Sufficient*Robert CASTRO. N [...] ORDERABLES Final Resul t Performing Organization Address [facility]/ZIP Co de Phone Number [facility] [address] [place] [phone] * Iron And Total Iron Binding Capacity (12/19/2024 12:11 PM EDT) Iron 57 30 - 160 mcg/dL [facility] Total Iron Binding Capacity 386 228 - 428 mcg/dL [facility] Percent Iron Saturation 15 15 - 50 % [facility] Unsaturated Iron Binding 329 ug/dL [facility] Blood Venous blood specimen / Unknown 12/19/2024 12:11 PM EDT 12/19/2024 1:20 PM EDT Rebekah Napoles MD LAB BLOOD ORDERABLES Final Resul t Performing Organization Address [facility] Co de Phone Number [facility] [address] [place] [phone] * (ABNORMAL) Ferritin (12/19/2024 12:11 PM EDT) Ferritin 6(L) 10 - 122 ng/mL [facility] Blood Venous blood specimen / Unknown 12/19/2024 12:11 PM EDT 12/19/2024 1:20 PM EDT Rebekah Napoles MD LAB BLOOD ORDERABLES Final Resul t Performing Organization Address [facility] Co de Phone Number [facility] [address] [place] [phone] * US Abdomen Limited (10/06/2024 1:30 PM EST) Anatomical Region Laterality Modality Abdomen Ultrasound 10/06/2024 1:30 PM EST Narrative 10/06/2024 2:35 PM EST ? [facility] ?[address] ?[place], [place] [address] ? Ultrasound Report ? Signed ? Patient: Audain Garsia,Verónica C ?MR# ?? : [id number] ? : 1985 ?Acct:[id number] ? Age/Sex: 39 / F ?ADM Date: 10/06/24 ? Loc: HO.ED ? Attending Dr: ? Ordering Physician: Madonna Basilio ?? Date of Service: 10/06/24 ?? Procedure(s): US abdomen limited ?? Accession Number(s): [id number] ? cc: Madonna Basilio; Rebekah Napoles MD [...] Capps MD ??10/06/2024 02:25 PM ?? EST RP ? Dictated By: ?Clinton Naranjo MD ? Signed By: ?<Electronically signed by Clinton Lopez MD in OV> ? 10/06/24 1425 ? DD/ 1330 ? TD/TT: 10/06/24 1400 ? Devulcanizer Head: ? Procedure Note Donotuseinterpreter, Image - 10/06/[address] [address] Ultrasound Report Signed Patient: Verónica Starkey CMR# : [id number] : 1985Acct:[id number] Age/Sex: 39 / FADM Date: 10/06/24 Loc: HO.ED Attending Dr: Ordering Physician: Madonna Basilio Date of Service: 10/06/24 Procedure(s): US abdomen limited Accession Number(s): [id number] cc: Madonna Basilio; Rebekah Napoles MD EXAMINATION: [...] 10/06/24 1425 DD/ 1330 TD/TT: 10/06/24 1400 Devulcanizer Head: us [facility] External Provider IMG US PROCEDURES Final Result * HCG, Qualitative, Urine (10/06/2024 11:14 AM EST) Urine NEGATIVE NEGATIVE [facility] Comment:This test was develo ped to detect early . Falsenegative results may occur after the 5th - 7th week ofpregnancy when using this test method. If clinicallyindicated, consider a serum hCG. 10/06/2024 11:1 4 AM EST 10/06/2024 11:18 AM EST Generic External Data Provider LAB URINE ORDERAB LES Final Result Performing Organization Address City/[facility]/ZIP Co de Phone Number [facility] [address] [place] [phone] * Urinalysis w/reflex microscopic (10/06/2024 11:14 AM EST) Color Urine Yellow [facility] Appearance Urine Clear [facility] PH 5.5 5.0 - 9.0 [facility] Glucose Urine UA Negative Negative mg/dL [facility] Urine Blood Negative Negative [facility] Specific [place] - Urine 1.020 1.005 - 1.025 [facility] Urine Protein Negative Neg-Trace mg/dL [facility] Urine Ketones Trace Negative mg/dL [facility] Nitrite Urine Negative Negative [facility] Leukocyte Esterase Urine Negative Negative [facility] 10/06/2024 11:1 4 AM EST 10/06/2024 11:18 AM EST Narrative [facility] - 10/06/2024 11:23 AM EST [id number], Clean Catch Generic External Data Provider LAB URINE ORDERAB LES Final Result Performing Organization Address City/[facility]/ZIP Co de Phone Number [facility] [address] [place] [phone] * (ABNORMAL) Comprehensive Metabolic Panel (10/06/2024 11:13 AM EST) Sodium 140 135 - 145 mmol/L [facility] Potassium 4.3 3.3 - 5.1 mmol/L [facility] Chloride 110(H) 96 - 108 mmol/L [facility] Carbon Dioxide 25 22 - 29 mmol/L [facility] Anion Gap 9(L) 12 - 20 [facility] Urea Nitrogen (BUN) 5(L) 9 - 16 mg/dL [facility] Creatinine, Serum 0.70 0.5 - 1.4 mg/dL [facility] Creatinine Clr Calc Pharmacy 125.8 [facility] Comment:Provided height and weight: 172.72 cm,87.09 kg.eGFR (calculated from the MDRD study equation) and eCrCl(calculated from the Cockcroft-Gault equation) are based ondifferent parameters and may not yield comparable results.If eCrCl result is absurd, please check patient'sheight/weight. Estimated Glomerular Filt Rate >60 [facility] Comment:Chronic Kidney Disea se: Estimated GFR < 60 mL/min/1.15w2Mxwrta Kidney Disease: Estimated GFR < 15 mL/min/1.73m2 Glucose 83 60 - 115 mg/dL [facility] Calcium 9.5 8.4 - 10.2 mg/dL [facility] Bilirubin, Total 0.3 0.0 - 1.0 mg/dL [facility] Aspartate Amino Transferase 21 5 - 31 U/L [facility] Alanine Aminotransferase 13 0 - 31 U/L [facility] Total Protein 7.9 6.5 - 8.0 g/dL [facility] Albumin Level 4.0 3.5 - 5.0 g/dL [facility] Alkaline Phosphatase 128(H) 39 - 117 U/L [facility] 10/06/2024 11:1 3 AM EST 10/06/2024 11:18 AM EST us Generic External Data Provider LAB BLOOD ORDERAB LES Final Result [facility] [address] [place] [phone] * (ABNORMAL) CBC auto differential (10/06/2024 11:13 AM EST) White Blood Count 8.0 4.8 - 10.8 X10*3/uL [facility] Red Blood Count 5.13 4.20 - 5.50 X10*6/uL [facility] Hemoglobin 11.8(L) 12.0 - 16.0 g/dl [facility] Hematocrit 38.1 37.0 - 47.0 % [facility] Mean Corpuscular Volume 74.3(L) 80.0 - 98.0 fL [facility] Mean Corpuscular Hemoglobin 23.0(L) 27.0 - 33.0 pg [facility] Mean Corpuscular HGB Conc 31.0 31.0 - 35.0 g/dl [facility] Red Cell Distribution Width 15.0 11.0 - 16.0 % [facility] Platelet Count 172 160 - 400 X10*3/uL [facility] Mean Platelet Volume 10.8 9.4 - 12.3 fL [facility] Neutrophils Percent Auto 54.3 45 - 73 % [facility] Imm Gran Pct Auto 0.1 0.0 - 0.4 % [facility] Lymphocytes Percent Auto 38.4 20 - 40 % [facility] Monocytes Percent Auto 6.5 2 - 11 % [facility] Eosinophils Percent Auto 0.5 0 - 4 % [facility] Basophils Percent Auto 0.2 0 - 2 % [facility] NRBC Pct Auto 0.0 0.0 - 0.2 /100WBC [facility] Neutrophils Absolute Auto 4.4 2.0 - 8.3 x10*3/uL [facility] Imm Gran Abs Auto 0.01 0.00 - 0.03 X10*3/uL [facility] Lymphocytes Absolute Auto 3.1 1.2 - 4.9 X10*3/uL [facility] Monocytes Absolute Auto 0.5 0.1 - 1.2 X10*3/uL [facility] Eosinophils Absolute Auto 0.0 0.0 - 0.4 X10*3/uL [facility] Basophils Absolute Auto 0.0 0.0 - 0.2 X10*3/uL [facility] NRBC Abs Auto 0.000 0.0 - 0.012 X10*3/uL [facility] 10/06/2024 11:1 3 AM EST 10/06/2024 11:18 AM EST us Generic External Data Provider LAB BLOOD ORDERAB LES Final Result [facility] [address] [place] [phone] documented in this encounter Visit Diagnoses Diagnosis Cyst of right kidney- Primary 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, unspecified deficiency type Routine screening for STI (sexually transmitted infection) Screening examination for venereal disease Screening for lipid disorders Screening for diabetes mellitus Microcytic anemia Unspecified iron deficiency anemia Vitamin D deficiency documented in this encounter Additional Health Concerns Assessment Noted Time PHQ-9 Depression Total Score: 0 12/30/19 24 10:13 AM EDT documented as of this encounter Care Teams Stove Carriage Operator Relationship Specialty Start Date End Date Rebekah Napoles MD [address] [place] [phone] PCP - General Family Medicine 06/06/12 documented as of this encounter
--- OUTSIDE RECORDS SUMMARY | 2024-12-19 14:51 | XMS_ITS | Encounter Summary ---
Author Organization [employer] Address [address] [facility] 7 [place] [address] Care Team Providers Care Photo Colorer Name Role Phone Rebekah Napoles MD Primary Care Provider [phone] Encounter Details Date Type Department Care Team (Late st Contact Info) Description 09/27/2024 Orders Only [place] [address] [place] [address] Provider, MD David Social History Tobacco Use Types Packs/Day Years [...] Description 01/15/2025 3:30 PM EDT Office Visit [facility] MED[facility]INE [address] [place] [phone] Rebekah Napoles MD [address] [place] [phone] documented as of this encounter Procedures Procedure Name Priority Date/Time Associated Diagnosis Comments CT ABDOMEN PELVIS WO CONTRAST Routine 09/26/2024 2:31 PM EST documented in this encounter Results * CT Abdomen Pelvis w/o Contrast (09/26/2024 2:31 PM EST) Anatomical Region Laterality Modality Body, Pelvis, Abdomen Computed T omography us Historical Provider MD PETER CT PROCEDURES Final R esult documented in this encounter Visit Diagnoses Not on filedocumented in this encounter Additional Health Concerns Assessment Noted Time PHQ-9 Depression Total Score: 0 12/30/19 24 10:13 AM EDT documented as of this encounter Care Teams Photo Colorer Relationship Specialty Start Date End Date Rebekah Napoles MD [address] [place] [phone] PCP - General Family Medicine 06/06/12 documented as of this encounter
--- OUTSIDE RECORDS SUMMARY | 2024-12-19 14:51 | XMS_ITS | Clinical Summary ---
Author Organization [facility] Address [address] [place] [address] Phone Care Team Providers Care Anatomy And Physiology Instructor Name Role Phone Rebekah Napoles MD Primary Care Provider [phone] Medications ibuprofen (ADVIL,MOTRIN) 600 mg tablet Take 1 tablet (600 mg total) by mouth every 6 (six) hours if needed for mild pain. 30 tablet 09/26/2024 Active Encounters Date Type Department Care Team Description 10/06/2024 9:28 AM EST - 10/06/2024 12:22 PM [facility] Emergency [facility] Emergency [address] [place] [phone] Discharge Disposition: Home or Self Care 09/26/2024 4:46 AM EST - 09/26/2024 11:55 AM [facility] Emergency [address] [place] [id number] Judson Wisdom MD Cauchon, Matthew C, RSV (acute bronchiolitis due to respiratory syncytial [...] Smoking Tobacco: Every Day Smokeless Tobacco: Never Comments Unknown Sex and Gender Information Value Date Recorded Sex Assigned at Not on file Legal Sex Female 10:17 AM EST Gender Identity Not on file Sexual Orientation Not on file Obstetrics History Last Filed [...] Maintenance Due Date Last Done Comments Hepatitis B Vaccines (1 of 3 - 19+ 3-dose series) 2005 Cervical Cancer Screening: P ap Smear 2007 Pneumococcal Vaccine: Pediatrics (0 to 5 Years) and At-Risk Patients (6 to 64 Years) (2 of 2 - PCV) 08/14/2015 08/14/2014 Cholesterol Screening (Lipid Panel) 08/04/2022 Social Influencers of Health Screening 08/04/2022 COVID-19 Vaccine ( - 2023-2 5 season) 2024 Depression Screening 12/29/2024 12/30/2023 Influenza Vaccine (Season Ended) 2025 08/14/2014, 06/20/2012 DTaP,Tdap,and Td Vaccines (3 - Td or [...] patient's age to complete this topic Meningococcal B Vaccine Aged Out No l onger eligible based on patient's age to complete [...] MOLECULAR DIAGNOSTICS METHOD 09/26/2024 2:45 PM EST [facility] Chlamydia trachomatis PCR Negative Negative LAB MOLECULAR DIAGNOSTICS METHOD 09/26/2024 2:45 PM EST [facility] Urine Urine specimen obtained by clean catch procedure / Unknown Non-blood Collection / Unknown 09/26/2024 11:55 AM EST 09/26/2024 12:23 PM EST us Rosalva RAMIREZ LAB MICROBIOLOGY - GENER AL ORDERABLES Final Result [facility] ([facility]) [facility] [address] [place] [address], [place] [phone] * CT Abdomen Pelvis wo Contrast (09/26/2024 [...] Signed Date: 09/26/2024 10:48 ET Workstation ID: [id number] Transcribed By: Self Edit Transcribed Date: 09/26/2024 [...] Signed Date: 09/26/2024 10:48 ET Workstation ID: [id number] Transcribed By: Self Edit Transcribed Date: 09/26/2024 10:42 ET us Judson Wisdom MD IMG CT PROCEDURES Final Result * POC , urine manually resulted (09/26/2024 10:10 AM EST) HCG, Ur POC Negative Negative POC hCG Int QC Pass? Yes Yes Urine Urine specimen obtained by clean catch procedure / Unknown 09/26/2024 10:10 AM EST Kali Quinteros DO POINT OF CARE TEST ENTER/ED IT ORDERABLES Final Result * XR Chest 2 Views (09/26/2024 9:12 [...] Signed Date: 09/26/2024 09:21 ET Workstation ID: [id number] Transcribed By: Self Edit Transcribed Date: 09/26/2024 [...] Signed Date: 09/26/2024 09:21 ET Workstation ID: [id number] Transcribed By: Self Edit Transcribed Date: 09/26/2024 09:18 ET Rosalva RAMIREZ IMG XR PROCEDURES Final Result * (ABNORMAL) CBC auto differential (09/26/2024 8:38 AM EST) WBC 9.2 4.8 - 10.8 K/[facility] LAB HEMETOLOGY METHOD 09/26/2024 8:52 AM [facility] RBC 4.90(H) 3.80 - 4.80 M/mcL LAB HEMETOLOGY METHOD 09/26/2024 8:52 AM [facility] Hemoglobin 11.1(L) 11.5 - 16.0 g/dL LAB HEMETOLOGY METHOD 09/26/2024 8:52 AM [facility] Hematocrit 36.7 35.0 - 47.0 % LAB HEMETOLOGY METHOD 09/26/2024 8:52 AM [facility] MCV 75.1(L) 79.0 - 98.0 FL LAB HEMETOLOGY METHOD 09/26/2024 8:52 AM [facility] MCH 22.7(L) 27.0 - 32.0 pcg LAB HEMETOLOGY METHOD 09/26/2024 8:52 AM [facility] MCHC 30.2(L) 32.0 - 37.0 g/dL LAB HEMETOLOGY METHOD 09/26/2024 8:52 AM [facility] RDW 14.8 11.0 - 15.0 % LAB HEMETOLOGY METHOD 09/26/2024 8:52 AM [facility] Platelets 180 130 - 400 K/mcL LAB HEMETOLOGY METHOD 09/26/2024 8:52 AM [facility] MPV 12.2(H) 7.0 - 11.0 FL LAB HEMETOLOGY METHOD 09/26/2024 8:52 AM [facility] NRBC 0.0 <1.0 % LAB HEMETOLOGY METHOD 09/26/2024 8:52 AM [facility] NRBC Absolute 0.00 <0.10 K/mcL LAB HEMETOLOGY METHOD 09/26/2024 8:52 AM [facility] Neutrophils Relative 47.1 % LAB HEMETOLOGY METHOD 09/26/2024 8:52 AM [facility] Lymphocytes Relative 44.6 % LAB HEMETOLOGY METHOD 09/26/2024 8:52 AM [facility] Monocytes Relative 6.9 % LAB HEMETOLOGY METHOD 09/26/2024 8:52 AM [facility] Eosinophils Relative 0.9 % LAB HEMETOLOGY METHOD 09/26/2024 8:52 AM [facility] Basophils Relative 0.3 % LAB HEMETOLOGY METHOD 09/26/2024 8:52 AM [facility] Immature Granulocytes Relative 0.2 % LAB HEMETOLOGY METHOD 09/26/2024 8:52 AM [facility] Neutrophils Absolute 4.31 1.50 - 7.00 K/mcL LAB HEMETOLOGY METHOD 09/26/2024 8:52 AM [facility] Lymphocytes Absolute 4.08 1.00 - 5.00 K/mcL LAB HEMETOLOGY METHOD 09/26/2024 8:52 AM [facility] Monocytes Absolute 0.63 0.20 - 1.00 K/mcL LAB HEMETOLOGY METHOD 09/26/2024 8:52 AM [facility] Eosinophils Absolute 0.08 0.00 - 0.50 K/mcL LAB HEMETOLOGY METHOD 09/26/2024 8:52 AM [facility] Basophils Absolute 0.03 0.00 - 0.20 K/mcL LAB HEMETOLOGY METHOD 09/26/2024 8:52 AM [facility] Immature Granulocytes Absolute 0.02 0.00 - 0.03 K/mcL LAB HEMETOLOGY METHOD 09/26/2024 8:52 AM [facility] Blood Venous blood specimen / Unknown Venipuncture / Unknown 09/26/2024 8:38 AM EST 09/26/2024 8:48 AM EST Kali Quinteros DO LAB BLOOD ORDERABLES Final Result [facility] [address] [place] [address], * (ABNORMAL) Comprehensive metabolic panel (09/26/2024 8:38 AM EST) Sodium 139 133 - 145 mmol/L LAB CHEMISTRY METHOD 09/26/2024 9:19 AM [facility] Potassium 3.6 3.5 - 5.5 mmol/L LAB CHEMISTRY METHOD 09/26/2024 9:19 AM [facility] Chloride 107 96 - 110 mmol/L LAB CHEMISTRY METHOD 09/26/2024 9:19 AM [facility] CO2 26 21 - 32 mmol/L LAB CHEMISTRY METHOD 09/26/2024 9:19 AM [facility] Anion Gap 6 3 - 11 LAB CHEMISTRY METHOD 09/26/2024 9:19 AM [facility] Glucose 97 70 - 100 mg/dL LAB CHEMISTRY METHOD 09/26/2024 9:19 AM [facility] BUN 7 5 - 25 mg/dL LAB CHEMISTRY METHOD 09/26/2024 9:19 AM [facility] Creatinine 0.66 0.50 - 1.10 mg/dL LAB CHEMISTRY METHOD 09/26/2024 9:19 AM [facility] eGFR 115 >=60 mL/min/1. 73m2 LAB CHEMISTRY METHOD 09/26/2024 9:19 AM [facility] Comment:Calculation based on the??Chronic Kidney Disease Epidemiology Collaboration (CKD-EPI) equation refit??without adjustment for race. BUN/Creatinine Ratio 10.6 LAB CHEMISTRY METHOD 09/26/2024 9:19 AM [facility] Calcium 8.6 8.5 - 10.5 mg/dL LAB CHEMISTRY METHOD 09/26/2024 9:19 AM [facility] AST (SGOT) 16 10 - 42 unit/L LAB CHEMISTRY METHOD 09/26/2024 9:19 AM [facility] ALT (SGPT) 18 10 - 60 unit/L LAB CHEMISTRY METHOD 09/26/2024 9:19 AM [facility] Alkaline Phosphatase 143(H) 42 - 121 unit/L LAB CHEMISTRY METHOD 09/26/2024 9:19 AM [facility] Total Protein 6.8 6.0 - 8.0 g/dL LAB CHEMISTRY METHOD 09/26/2024 9:19 AM [facility] Albumin 3.2 3.2 - 5.0 g/dL LAB CHEMISTRY METHOD 09/26/2024 9:19 AM [facility] Total Bilirubin 0.1 0.0 - 1.4 mg/dL LAB CHEMISTRY METHOD 09/26/2024 9:19 AM [facility] Blood Venous blood specimen / Unknown Venipuncture / Unknown 09/26/2024 8:38 AM EST 09/26/2024 8:48 AM EST us Kali Quinteros DO LAB BLOOD ORDERABLES Final Result [facility] [address] [place] [address], [place] [phone] * (ABNORMAL) Urinalysis with reflex microscopic and culture (09/25/2024 9:21 PM EST) Specific [place] Urine 1.027 1.003 - 1.030 LAB URINALYSIS - AUTOMATED METHOD 09/25/2024 11:33 PM [facility] pH, Urine 5.5 5.0 - 8.0 pH LAB URINALYSIS - AUTOMATED METHOD 09/25/2024 11:33 PM [facility] Leukocytes, Urine Trace(A) Negative LAB URINALYSIS - AUTOMATED METHOD 09/25/2024 11:33 PM [facility] Nitrite, Urine Negative Negative LAB URINALYSIS - AUTOMATED METHOD 09/25/2024 11:33 PM [facility] Protein, Urine Trace <=Trace mg/dL LAB URINALYSIS - AUTOMATED METHOD 09/25/2024 11:33 PM [facility] Glucose, Urine Negative Negative mg/dL LAB URINALYSIS - AUTOMATED METHOD 09/25/2024 11:33 PM [facility] Ketones, Urine Trace(A) Negative mg/dL LAB URINALYSIS - AUTOMATED METHOD 09/25/2024 11:33 PM [facility] Urobilinogen, Urine 1.0 0.2 - 1.0 mg/dL LAB URINALYSIS - AUTOMATED METHOD 09/25/2024 11:33 PM [facility] Bilirubin, Urine Negative Negative LAB URINALYSIS - AUTOMATED METHOD 09/25/2024 11:33 PM [facility] Blood, Urine Negative Negative LAB URINALYSIS - AUTOMATED METHOD 09/25/2024 11:33 PM [facility] RBC, Urine 1.0 0 - 4 /HPF LAB URINALYSIS - AUTOMATED METHOD 09/25/2024 11:33 PM [facility] Comment:This is an appended report. These results have been appended to a previously final verified report. WBC, Urine 2.7 0 - 4 /HPF LAB URINALYSIS - AUTOMATED METHOD 09/25/2024 11:33 PM [facility] Comment:This is an appended report. These results have been appended to a previously final verified report. Squamous Epithelial, Urine 36 0 - 60 /LPF LAB URINALYSIS - AUTOMATED METHOD 09/25/2024 11:33 PM [facility] Comment:This is an appended report. These results have been appended to a previously final verified report. Bacteria, Urine Negative Negative /HPF LAB URINALYSIS - AUTOMATED METHOD 09/25/2024 11:33 PM [facility] Comment:This is an appended report. These results have been appended to a previously final verified report. Hyaline Casts, Urine 6.3(H) 0 - 3 /LPF LAB URINALYSIS - AUTOMATED METHOD 09/25/2024 11:33 PM EST [facility] Comment:This is an appended report. These results have been appended to a previously final verified report. Urine Urine specimen obtained by clean catch procedure / Unknown Non-blood Collection / Unknown 09/25/2024 9:21 PM EST 09/25/2024 9:41 PM EST us Judson Wisdom MD LAB URINE ORDERABLES Edited Res ult - Final Performing Organization Address City/[facility]/ZIP Co de Phone Number [facility] [address] [place] [address], [place] [phone] * Winkler urine culture tube (09/25/2024 9:21 PM EST) Extra Tube Hold for add-ons. 09/25/2024 11:01 PM EST [facility] Comment:Auto resulted. Urine Urine specimen obtained by clean catch procedure / Unknown Non-blood Collection / Unknown 09/25/2024 9:21 PM EST 09/25/2024 9:42 PM EST us Judson Wisdom MD LAB URINE ORDERABLES Final Resu lt Performing Organization Address City/[facility]/ZIP Co de Phone Number [facility] [address] [place] [address], [place] [phone] * (ABNORMAL) Culture urine (09/25/2024 9:21 PM EST) Culture, Urine 10,000-49,000 CFU/mL Streptococcus agalactiae(A) SUSIE 09/27/2024 7:58 AM EST [facility] Comment: Beta Streptococcus Group B Susceptibility testing is not routinely performed since this organism is predictably sensitive to Penicillin. Susceptibility testing should be performed for Penicillin-allergic women at HIGH RISK for anaphylaxis. S hould this patient require testing, please contact the Microbiology Department at [phone] within 7 days of receiving this report to request susceptibility. This is an edited result. Previous organism was Gram Positive Cocci on 09/26/2024 at 1331 EST. Urine Urine specimen obtained by clean catch procedure / Unknown Non-blood Collection / Unknown 09/25/2024 9:21 PM EST 09/25/2024 10:16 PM EST Judson Wisdom MD LAB MICROBIOLOGY - GENERAL MICHAELA MICHELLE Final Result [facility] [address] [place] [address], [place] [phone] * (ABNORMAL) Respiratory virus panel molecular study (09/25/2024 9:10 PM EST) Adenovirus Detection by PCR Not Detected Not Detected LAB MICROBIOLOGY METHOD 09/25/2024 10:18 PM EST [facility] Influenza A PCR Not Detected Not Detected LAB MICROBIOLOGY METHOD 09/25/2024 10:18 PM EST [facility] Influenza B PCR Not Detected Not Detected LAB MICROBIOLOGY METHOD 09/25/2024 10:18 PM EST [facility] Coronavirus 229E Not Detected Not Detected LAB MICROBIOLOGY METHOD 09/25/2024 10:18 PM EST [facility] Coronavirus HKU1 Not Detected Not Detected LAB MICROBIOLOGY METHOD 09/25/2024 10:18 PM EST [facility] Coronavirus OC43 Not Detected Not Detected LAB MICROBIOLOGY METHOD 09/25/2024 10:18 PM EST [facility] Coronavirus NL63 Not Detected Not Detected LAB MICROBIOLOGY METHOD 09/25/2024 10:18 PM EST [facility] Parainfluenza Virus 1 Not Detected Not Detected LAB MICROBIOLOGY METHOD 09/25/2024 10:18 PM EST [facility] Parainfluenza Virus 2 Not Detected Not Detected LAB MICROBIOLOGY METHOD 09/25/2024 10:18 PM EST [facility] Parainfluenza Virus 3 Not Detected Not Detected LAB MICROBIOLOGY METHOD 09/25/2024 10:18 PM EST [facility] Parainfluenza Virus 4 Not Detected Not Detected LAB MICROBIOLOGY METHOD 09/25/2024 10:18 PM [facility] RSV PCR Detected(A ) Not Detected LAB MICROBIOLOGY METHOD 09/25/2024 10:18 PM [facility] Human Metapneumovirus A and B Not Detected Not Detected LAB MICROBIOLOGY METHOD 09/25/2024 10:18 PM [facility] Rhinovirus/Entero virus Not Detected Not Detected LAB MICROBIOLOGY METHOD 09/25/2024 10:18 PM [facility] Bordetella pertussis Not Detected Not Detected LAB MICROBIOLOGY METHOD 09/25/2024 10:18 PM [facility] Bordetella parapertussis Not Detected Not Detected LAB MICROBIOLOGY METHOD 09/25/2024 10:18 PM [facility] Mycoplasma pneumo by PCR Not Detected Not Detected LAB MICROBIOLOGY METHOD 09/25/2024 10:18 PM [facility] Chlamydia pneumoniae Not Detected Not Detected LAB MICROBIOLOGY METHOD 09/25/2024 10:18 PM [facility] SARS COV-2 Not Detected Not Detected LAB MICROBIOLOGY METHOD 09/25/2024 10:18 PM [facility] Swab Structure of right anterior naris / Unknown Non-blood Collection / Unknown 09/25/2024 9:10 PM EST 09/25/2024 9:19 PM EST [facility] - 09/25/2024 10:18 PM EST Testing was performed using the [employer]™ Respiratory Pathogen PCR Assay. All results must [...] that are below the limit of detection. us Kali Quinteros DO LAB MICROBIOLOGY - GENERAL ORDERABLES Final Result [facility] ([facility]) [facility] [address] [place] [address], from Last 3 Months Insurance MEDICAID - [place] Care Teams Anatomy And Physiology Instructor Relationship Specialty Start Date End Date Rebekah Napoles MD [address] [place] [phone] PCP - General Family Medicine 09/26/24
--- OUTSIDE RECORDS SUMMARY | 2024-12-19 14:51 | XMS_ITS | Encounter Summary ---
Author Organization [employer] Address [address] [facility] [address] [place] [address] Care Team Providers Care General Operations Agent Name Role Phone Rebekah Napoles MD Primary Care Provider [phone] Reason for Visit * Reason Onset Date Comments Lab Orders 10/04/2024 Encounter Details Date Type Department Care Team (Late st Contact Info) Description 10/04/2024 Telephone [facility] MEDICINE [address] [place], [place] [phone] Rebekah Napoles MD [address] [place], [place] [phone] Lab Orders Social History Tobacco Use Types Packs/Day Years [...] AM EDT documented as of this encounter Miscellaneous Notes * Telephone Encounter - Sharron Pena RN - 10/04/2024 2:20 PM EST MARQUISE with PCP on 12/30/2023 and corresponding labs done on 12/30/2023. Forwarding request to PCP regarding repeat labs ordered for PE appt on 11/13/2024 * Telephone Encounter - Sekou Burks - 10/04/2024 12:56 PM EST TC from pt requesting lab order to be placed for full STI panel and yearly labs Pt states non symptomatic but usually gets sti check done every 6 months . Pt has upcoming PE in november with pcp and would like to get this done prior to visit documented in this encounter Plan of Treatment Upcoming Encounters Date Type Department Care Team (Late st Contact Info) Description 01/15/2025 3:30 PM EDT Office Visit [facility] MEDICINE [address] [place] [address] Rebekah Napoles MD [address] [place] [address] documented as of this encounter Visit Diagnoses Not on filedocumented in this encounter Additional Health Concerns Assessment Noted Time PHQ-9 Depression Total Score: 0 12/30/19 24 10:13 AM EDT documented as of this encounter Care Teams General Operations Agent Relationship Specialty Start Date End Date Rebekah Napoles MD [address] [place] [address] PCP - General Family Medicine 06/06/12 documented as of this encounter
[2024-12-20 08:10] LABS: HBsAGNum1 0.27 S/CO (0.00-0.99); HIV AB/AG Nonreactive (Nonreactive); HIV Num 1 0.05 S/CO (0.00-0.99); Hepatitis B Surface Antigen Negative (Negative); ~HepC Num1 0.15 S/CO (0.00-0.79); ~Hepatitis C Antibody Nonreactive (Nonreactive)
[2024-12-20 08:32] LABS: Syphilis Screen Nonreactive (Nonreactive)
[2024-12-21 10:43] LABS: Hematocrit 40.6 % (35.0-45.0); Hemoglobin 12.4 g/dL (11.7-15.5); MCH 22.8 pg (27.0-33.0); MCV 74.6 fL (80.0-100.0); RBC 5.44 Million/uL (3.80-5.10); RDW 16.1 % (11.0-15.0)
== END 2024-12-19 12:08 | disposition home or self-care (01) ==
LOC: HO.HHCL 12:07
PROVIDERS: Visit Provider Family Medicine
DX: D52.9 Folate deficiency anemia, unspecified (principal); Z11.3 Encounter for screening for infections with a predominantly sexual mode of transmission; E55.9 Vitamin D deficiency, unspecified
CPT/HCPCS: 82306; 82607; 82728; 82746; 83020; 83540; 83970; 85014; 85018; 85041; 85045; 86780; 86803; 87340; 87389

== ENCOUNTER 2025-04-11 12:15 | Outpatient (RCR) | payer MEDICAID, SELFPAY ==
[2025-03-16 08:38] VITALS: BP 121/81; PULSE 75; RESP 16; TEMP 36.6; O2SAT 99
[2025-03-21 09:18] VITALS: BP 126/68; PULSE 70; RESP 16; TEMP 36.8; O2SAT 97
[2025-03-28 11:26] VITALS: BP 136/93; PULSE 79; RESP 16; TEMP 36.7; O2SAT 98
[2025-04-04 11:23] VITALS: BP 128/86; PULSE 69; RESP 16; TEMP 36.6; O2SAT 100
[2025-04-11 11:17] VITALS: BP 121/81; PULSE 81; RESP 16; TEMP 36.6; O2SAT 98
== END 2025-04-11 12:24 | disposition home or self-care (01) ==
LOC: HO.INF 12:15
PROVIDERS: Visit Provider Internal Medicine
DX: E61.1 Iron deficiency (principal)
CPT/HCPCS: 96365; 96374; J1756

== ENCOUNTER 2025-05-01 15:31 | Outpatient (AMB) | payer MEDICAID, SELFPAY ==
--- NOTE | 2025-05-01 15:34 | MHC.OFFVIS ---
Intake Visit Reasons: renal cysts Intake Note: Patient is present for RENAL CYST Urology Medication:NONE Antibiotic Allergy:NONE Blood Thinner:NONE TODAY'S PVR:0ML'S Administrative Staff Supervisor Required: No Administrative Staff Supervisor Services: Administrative Staff Supervisor Present Administrative Staff Supervisor Name: Suly Mike Allergies oxycodone Adverse Reaction (Verified 05/01/25 16:01) Hives Medication List - Last Reconciled 05/01/25 by KEVIN Barlow No Known Home Meds HPI Comments Details: Verónica is a 40-year-old Tongan-speaking female patient of Dr. Napoles. She has a past medical history of iron deficiency anemia. She presents to the office today as a new patient for right renal lesion. In discussion with the patient today she reports noting over the last 4 years she has been following up with a provider through [facility] however is unsure as to the providers name for this ongoing issue. She reports having had imaging here at [facility] in recommendations were made for urology referral. These results were reviewed and communicated with the patient today. 09/30 right kidney with normal renal cortical thickness. Normal echotexture. There is a 3.1 cm septated anechoic lesion in the midportion. No hydronephrosis. We did discussed classifications of renal cysts and further workup to include further imaging. We also discussed obtaining medical release form for previous urology records for continuity of care. She denies any bothersome urinary issues. She does however continue to report generalized pain. In office urinalysis results reviewed with the patient today. She denies urinary urgency, urinary frequency, incontinence, nocturia, hematuria, dysuria, foul smelling urine, changes to urinary stream, flank pain, fever, and or chills. She is happy with her current voiding parameters. All questions were answered to the best of my ability. She does discuss her frustration regarding ongoing health issues. She otherwise offers no other issues or concerns at this time. [facility] Medical History Nipple discharge Folate deficiency Heavy menses Asthma Surgical History H/O abdominoplasty (~2016) Hx of tubal ligation (~2003) Family History Maternal Grandmother Throat cancer Eye cancer Paternal Grandmother Cancer Maternal Aunt Cancer Social History Household Members: None Housing: Apartment Alcohol intake: never Patient Tobacco Use Status: Current everyday Tobacco user Tobacco use type: Cigarette service: No Current occupational status: employed Review of Systems Const All systems reviewed & are unremarkable except as noted in HPI and below Physical Exam Const General: cooperative, healthy appearing, comfortable, no acute distress, well developed, alert and awake Orientation/consciousness: patient oriented x3 Limitations: language barrier HEENT Head: Yes normal to inspection, Yes normocephalic and Yes atraumatic Ears: hearing grossly normal bilaterally Eyes General: appearance normal, both eyes and all related structures Neck Neck: Yes normal visual inspection and Yes trachea midline Chest Chest palpation & inspection: normal inspection of the chest Resp Effort & Inspection: normal respiratory effort and able to speak in complete sentences Cardio Rate: regular rate GI Inspection: Yes normal to inspection General: Yes no CVA tenderness Back/Spine/Pelvis Back: no CVA tenderness Skin General skin exam: no rashes or lesions noted Neuro General: patient oriented x3 Extrem General: Yes normal to inspection Psych Appearance: grossly normal and well kempt Mental Status: mental status grossly normal Speech and movement: Normal speech and movement present and Clear speech present Affect: normal affect Attitude: cooperative Thought process: Normal thought process present Thought content: Normal thought content present Insight: Fair insight present (Psych) Judgement: Fair judgement present (Psych) Office Procedures Post Void Residual Post Residual Void Post Void Residual (PVR): 0 83198-Incm Void Residual by ultrasound Results AMB Urinalysis, Automated UA Leukoctes 0 Cornel/uL Last Edit by RAQUEL Levine on 05/01/25 15:51 UA Nitrite Negative Last Edit by RAQUEL Levine on 05/01/25 15:51 UA Urobilinogen 0.2 mg/dL Last Edit by RAQUEL Levine on 05/01/25 15:51 UA Protein 15 mg/dL Last Edit by RAQUEL Levine on 05/01/25 15:51 UA pH 6.0 Last Edit by RAQUEL Levine on 05/01/25 15:51 UA Blood 0 Armaan/uL Last Edit by RAQUEL Levine on 05/01/25 15:51 UA Specific [place] 1.030 Last Edit by RAQUEL Levine on 05/01/25 15:51 UA Ketone Negative Last Edit by RAQUEL Levine on 05/01/25 15:51 UA Bilirubin 0 mg/dL Last Edit by Sage Rouse CCM on 05/01/25 15:51 UA Glucose 0 mg/dL Last Edit by Sage Rouse CCM on 05/01/25 15:51 Results Reviewed Results Reviewed: Laboratory Last Values Urine pH (Auto) 6.0 05/01/25 15:50 Specific [place] (Auto) 1.030 05/01/25 15:50 Urine Protein (Auto) 15 mg/dL 05/01/25 15:50 Glucose (UA)(Auto) 0 mg/dL 05/01/25 15:50 Urine Ketones (Auto) Negative 05/01/25 15:50 Urine Blood (Auto) 0 Armaan/uL 05/01/25 15:50 Urine Nitrite (Auto) Negative 05/01/25 15:50 Urine Bilirubin (Auto) 0 mg/dL 05/01/25 15:50 Urine Urobilinogen (Auto) 0.2 mg/dL 05/01/25 15:50 Leukocyte Esterase (Auto) 0 Cornel/uL 05/01/25 15:50 Ordering Physician: Madonna Basilio Date of Service: 10/06/24 Procedure(s): US abdomen limited Accession Number(s): [id number] cc: Madonna Basilio; Rebekah Napoles MD~ EXAMINATION: US ABDOMEN LIMITED CLINICAL INFORMATION: Epigastric/right upper quadrant pain. Nausea and vomiting.. COMPARISON: None available. TECHNIQUE: Real-time imaging of the right upper quadrant abdominal viscera. FINDINGS: PANCREAS: No peripancreatic fluid collections. LIVER: Increased echotexture. No gross solid or cystic lesion. No nodular surface. No intrahepatic biliary ductal dilatation. GALLBLADDER: There are multiple layering intraluminal hyperechoic lesions with posterior shadowing. No pericholecystic fluid collection or gallbladder wall thickening. COMMON BILE DUCT: 3 mm.. RIGHT KIDNEY: 11 cm. Normal renal cortical thickness. Normal echotexture. There is a 3.1 cm septated anechoic lesion in the midportion. No hydronephrosis.. FREE FLUID: None. US/US abdomen limited IMPRESSION: Cholelithiasis. Complex septated cyst, right kidney. No hydronephrosis. No ascites. Assessment & Plan Assessment & Plan (1) Renal lesion: Code(s): N28.9 - Disorder of kidney and ureter, unspecified Category: Medical Plan In office urinalysis results with the patient today; as noted above. Most recent abdominal ultrasound results reviewed with the patient today; as noted above. We did discussed classification of renal cysts as well as further workup in risks and benefits of these interventions. All questions were answered. She denies any bothersome urinary issues. Will obtain MRI renal mass protocol. We discussed signing medical release form to obtain previous imaging for continuity of care Follow-up in 1-3 months with imaging to be completed prior; or sooner with any issues, concerns, and or questions. Orders: Orders AMB Urinalysis Automated Today Z13.9 - Encounter for screening, unspecified MR abdomen wo/w con Today N28.9 - Disorder of kidney and ureter, unspecified Patient Instructions: The patient had an opportunity to ask questions regarding the treatment plan. All questions were answered. Physical exam, labs, and imaging were discussed and reviewed in detail. As well as risks, benefits, and discussion of treatment choices. No major barriers to understanding were identified. The patient expressed understanding and agreement with the above treatment plan. The patient was made aware they should contact our office by phone for worsening of their current condition, the appearance of new symptoms, or with any questions or concerns. Compliance is encouraged with any medications and follow up testing that is ordered. It is a privilege to be allowed the opportunity to participate in? your urological care.? Again, if you have any questions or concerns If you have any questions or concerns please do not hesitate to contact me. The office is [phone]. This note is constructed using voice recognition software. While every effort has been made to ensure accuracy data science and iot manager errors may have been included. Yours sincerely, KEVIN Barlow Coding Level of Care Code New Pt Level 3 (61597) Diagnoses Renal lesion N28.9 CPT Codes Post Residual Void - PVR CPT Code: 91381-Xqad Void Residual by ultrasound ([id number])
--- OUTSIDE RECORDS SUMMARY | 2025-05-01 16:26 | XMS_ITS | Encounter Summary ---
Author Organization [employer] Address [address] [facility] [address] [place] [address] Care Team Providers Care Live In Housekeeper Nanny Name Role Phone Rebekah Napoles MD Primary Care Provider [phone] Reason for Visit * Reason Onset Date Comments Med Refill 04/16/2025 Encounter Details Date Type Department Care Team (Late st Contact Info) Description 04/16/2025 Refill [facility] [address] [place], [place] [phone] Rebekah Napoles MD [address] [place], [place] [phone] Social History Tobacco Use Types Packs/Day Years Used Date Smoking Tobacco: Every Day Cigarettes Passive Smoke Exposure: Current Smokeless Tobacco: Never Alcohol Use Standard Drinks/Week Comments Yes 0 (1 standard drink = 0.6 oz pur e alcohol) once a week Depression Answer Date Recorded Patient Health Questionnaire-9 Score 6 01/16/2025 Patient Health Questionnaire-9 Score 6 01/16/2025 Last PHQ-9: Questionnaire Data Not on file 0 01/16/2025 Housing Stability Answer Date Recorded What is your housing situation today? I have ishan treviño 01/15/[address] you li ve. Do you have problems with any of the following? None of the above 01/15/2025 Food Insecurity Answer Date Recorded Within the past 12 months, y ou worried that your food would run out before you got money to buy more: Never True 01/15/2025 Within the past 12 months,th e food you bought just didn't last and you didn't have enough money to get more: Never True 08/2025 Transportation Answer Date Recorded In the past 12 months, has l ack of transportation kept you from medical appts, meetings, work or from getting things needed for daily living? No 01/15/2025 Utilities Answer Date Recorded In the past 12 months, has t he electric, gas, oil or water company threatened to shut off services in your home? No 01/15/2025 Depression Answer Date Recorded Patient Health Questionnaire-2 Score 0 01/16/2025 Internet Access Answer Date Recorded Internet Access [...] Assessment Noted Time PHQ-9 Depression Total Score: 6 01/17/20 25 9:06 AM EDT documented as of this encounter Care Teams Live In Housekeeper Nanny Relationship Specialty Start Date End Date Rebekah Napoles MD [address] [place] [address] PCP - General Family Medicine 06/06/12 documented as of this encounter
--- OUTSIDE RECORDS SUMMARY | 2025-05-01 16:27 | XMS_ITS | Encounter Summary ---
Author Organization [employer] Address [address] [facility] [address] [place] [address] Care Team Providers Care Store Loss Prevention Manager Name Role Phone Rebekah Napoles MD Primary Care Provider [phone] Reason for Visit * Reason Onset Date Comments Med Refill 04/16/2025 Encounter Details Date Type Department Care Team (Late st Contact Info) Description 04/16/2025 Refill [facility] [address] [place], [place] [phone] Kelly Arredondo MD [address] [place], [place] [phone] Social History Tobacco Use Types Packs/Day Years [...] documented as of this encounter Care Teams Store Loss Prevention Manager Relationship Specialty Start Date End Date Rebekah Napoles MD [address] [place] [address] PCP - General Family Medicine 06/06/12 documented as of this encounter
--- OUTSIDE RECORDS SUMMARY | 2025-05-01 16:27 | XMS_ITS | Encounter Summary ---
Author Organization [employer] Address [address] [facility] [address] [place] [address] Care Team Providers Care Audit Associate Name Role Phone Rebekah Napoles MD Primary Care Provider [phone] Reason for Visit * Reason Onset Date Comments Med Refill 12/19/2024 Encounter Details Date Type Department Care Team (Late st Contact Info) Description 12/19/2024 Refill [facility] [address] [place] [address] Nate Gill MD [address] [place] [address] Social History Tobacco Use Types Packs/Day Years [...] documented as of this encounter Care Teams Audit Associate Relationship Specialty Start Date End Date Rebekah Naoples MD [address] [place] [address] PCP - General Family Medicine 06/06/12 documented as of this encounter
--- OUTSIDE RECORDS SUMMARY | 2025-05-01 16:27 | XMS_ITS | Encounter Summary ---
Author Organization [employer] Address [address] [facility] [address] [place] [address] Care Team Providers Care Finishing Supervisor Name Role Phone Rebekah Napoles MD Primary Care Provider [phone] Encounter Details Date Type Department Care Team (Late st Contact Info) Description 09/27/2024 Orders Only [facility] [address] [place] [address] Provider, MD David Social History Tobacco Use [...] documented as of this encounter Care Teams Finishing Supervisor Relationship Specialty Start Date End Date Rebekah Napoles MD [address] [place] [id number] PCP - General Family Medicine 06/06/12 documented as of this encounter
--- OUTSIDE RECORDS SUMMARY | 2025-05-01 16:27 | XMS_ITS | Clinical Summary ---
Author Organization [employer] Address [address] [facility] [address] [place] [address] Care Team Providers Care Distribution Driver Name Role Phone Rebekah Napoles MD Primary Care Provider [phone] Allergies No known active allergies Medications ergocalciferol (Vitamin D-2) 1.25 MG (80846 UT) capsule Take 1 capsule by mouth [...] for 10 days. 30 tablet [address] [facility] Check BP daily 1 each 5 Active acyclovir (Zovirax) 5 % ointment Apply topically 6 (six) times a day. Space applications every 3 hours. 15 g 5 Active Active Problems Problem Noted Date Diagnosed Date Lip lesion 01/15/2025 Cholelithiasis 11/10/2024 Headache 11/10/2024 Iron deficiency 11/10/2024 [...] acid deficiency anemia 01/02/2023 Assessment & Plan (01/16/2025 8:52 AM EDT): - continue oral supplementation Assessment & Plan (12/30/2023 10:39 AM EDT): - continue oral supplementation Assessment & Plan (05/04/2023 1:36 PM EDT): - continue oral supplementation Assessment & Plan (01/02/2023 7:07 AM EDT): - continue oral supplementation Renal cyst, right 12/31/2022 Assessment & Plan (01/16/2025 8:52 AM EDT): -US on 07/05/18: Bosniak 2F [...] - will update ultrasound Assessment & Plan (12/30/2023 1:03 PM EDT): [...] US Tobacco dependence 12/31/2022 Assessment & Plan (01/16/2025 8:53 AM EDT): - tried nicotine patch; patient states 21 mg was not adequate. Patient states she did not receive gums. - re-trial with nicotine patch and gum. Assessment & Plan (12/31/2023 10:00 AM EDT): [...] Iron deficiency anemia 01/20/2016 Assessment & Plan (01/16/2025 8:52 AM EDT): - likely AUB - 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 with [employer] OF [employer] for Control Center Operator exam - received Iron Infusions in January and February 2023 from [employer] - pt also has folic acid deficiency; continue folic acid supplementation Assessment & Plan (12/30/2023 10:39 AM EDT): - likely AUB - 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 with [employer] for Control Center Operator exam - received Iron Infusions in January and February 2023 from [employer] - pt also has folic acid deficiency; continue folic acid supplementation Assessment & Plan (05/04/2023 1:36 PM EDT): - likely AUB - 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 with [employer] for Control Center Operator exam - received Iron Infusions in January and February 2023 from [employer] - pt also has folic acid deficiency; continue folic acid supplementation Assessment & Plan (01/02/2023 7:07 AM EDT): - likely AUB - 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 with [employer] for Control Center Operator exam - pt requests iron infusion - refer to hematology service - pt also has folic acid deficiency; continue folic acid supplementation Allergic rhinitis 04/22/2015 Assessment & Plan (12/30/2023 10:40 AM EDT): -Continue Loratadine, prn Assessment & Plan (12/31/2022 12:57 PM EDT): -Continue Loratadine, prn Asthma 11/29/2014 Assessment & Plan (01/16/2025 8:51 AM EDT): -Last exacerbation in Aug 2020, seen in [facility] ED, CTA negative for PE -Oct 2019, Dx bronchitis, Rx prednisone and azithromycin -Previously on Singulair and Flovent, which were discontinued due to poor adherence and less symptom -Continue Albuterol prn -Strongly advised to work on smoking cessation Assessment & Plan (12/30/2023 10:38 AM EDT): -Last exacerbation in Aug 2020, seen in [facility] ED, CTA negative for PE -Oct 2019, Dx bronchitis, Rx prednisone and azithromycin -Previously on Singulair and Flovent, which were discontinued due to poor adherence and less symptom -Continue Albuterol prn -Strongly advised to work on smoking cessation Assessment & Plan (01/02/2023 7:06 AM EDT): -Last exacerbation in Aug 2020, seen in [facility] ED, CTA negative for PE -Oct 2019, Dx bronchitis, Rx prednisone and azithromycin -Previously on Singulair and Flovent, which were discontinued due to poor adherence and less symptom -Continue Albuterol prn -Strongly advised to work on smoking cessation Encounters Date Type Department Care Team Description 04/16/2025 Refill [facility] [address] [place], [place] [phone] Rebekah Napoles MD 04/16/2025 Refill [facility] [address] [place], [place] [phone] Kelly Arredondo MD 03/22/2025 Telephone [facility] [address] [place], [place] [phone] Rebekah Napoles MD may recall from Last 3 Months Immunizations Immunization Administration Dates Next Due HPV, Quadrivalent 09/07/2012,05/02/2012,03/03/20 [...] Sign Reading Time Taken Comments Blood Pressure 140/80 01/15/2025 4:32 PM EDT Pulse 81 01/15/2025 4:07 PM EDT Temperature 36.5 C (97.7 F) 01/15/2025 4:07 PM EDT Respiratory Rate 19 01/15/2025 4:07 PM EDT Oxygen Saturation 100% 03/13/2024 5:54 PM EDT Inhaled Oxygen Concentration - - Weight 91.2 kg (201 lb) 01/15/2025 4:07 PM EDT Height 172.7 cm (5' 8 ) 01/15/2025 4:07 PM EDT Body Mass Index 30.56 01/15/2025 4:07 PM EDT Plan of Treatment Health Maintenance Due Date Last Done Comments Family Planning (PISQ) 2001 Hepatitis B Vaccines (1 of 3 - 19+ 3-dose series) 2005 Pap Smear 2007 Pneumococcal Vaccine: Pediatrics (0 to 5 Years) and At-Risk Patients (6 to 49) Years (2 of 2 - PCV) 08/14/2015 08/14/2014 Cervical Cancer Screening 06/08/2022 HPV/Cotest 06/08/2022 06/08/2017 COVID-19 Vaccine ( season) 2024 Tobacco Screening 03/13/2025 03/13/2024 Influenza Vaccine (#1) 2025 08/14/2014, 2011 Disability Screening 01/14/2026 01/14/2025 Alcohol/Substance Use Screening 01/15/2026 01/15/2025 SDOH Screening 01/15/2026 01/15/2025 Depression Screening 01/16/2026 01/16/2025, 01/17/20 25 Lipid Panel 12/29/2028 12/30/2023 DTaP/Tdap/Td Vaccines (3 - Td or Tdap) 01/25/2031 01/25/2021, 08/14/2014 Zoster Vaccines (1 of 2) 2036 RSV Patients and Patients Aged 60 years or older (1 - 1-dose 75+ series) 2061 HPV Vaccines Completed 09/07/2012, 04/07, 03/03/2012 HIV Screening Completed 12/19/2024, 12/06, 05/04/2023, Additional history exists Hepatitis C Screening Completed 12/19/2024 , 12/30/2023, 05/04/2023, Additional history exists HIB Vaccines Aged Out [...] topic Meningococcal Vaccine Aged Out No alec xcohitl eligible based on patient's age to complete this topic RSV under 20 months Aged Out No longe r eligible based on patient's age to complete this topic Rotavirus Vaccines Aged Out No longer eligible based on patient's age to complete this topic Procedures Procedure Name Priority Date/Time Associated Diagnosis Comments HEPATITIS C AB W/REFL TO HCV RNA, QN, PCR Routine 12/19/2024 12:11 PM EDT Routine screening for STI (sexually transmitted infection) HIV 1/2 ANTIGEN/ANTIBODY, FOURTH GENERATION W/RFL Routine 12/19/2024 12:11 PM EDT Routine screening for STI (sexually transmitted [...] Recently Relevant to Health Maintenance Results * Hepatitis C Antibody with Reflex to HCV, RNA, Quantitative, Real-Time PCR (12/19/2024 12:11 PM EDT) Hepatitis C Antibody Nonreactive Nonreactive [facility] Comment:Antibodies to HCV no t detected; does not exclude early acuteHCV infection. Blood Venous blood specimen / Unknown 12/19/2024 12:11 PM EDT 12/19/2024 1:20 PM EDT us Rebekah Napoles MD LAB BLOOD ORDERABLES Final Resul t [facility] [address] [place] [address] [phone] * HIV-1/2 Antigen and Antibodies, Fourth Generation, with Reflexes (12/19/2024 12:11 PM EDT) HIV AB/AG Nonreactive Nonreactive [facility] Comment:HIV-1 p24 Ag and/or HIV-1/HIV-2 Ab not detected.A test result that is nonreactive does not exclude thepossibility of exposure to or infection with HIV-1 and/orHIV-2. Nonreactive results in this assay for individualswith prior exposure to HIV-1 and/or HIV-2 may be due toantigen and antibody levels that are below the limit ofdetection of this assay.The [facility] HIV Ag/Ab Combo assay result andsupplemental assay results should be interpreted inconjunction with the patient's clinical presentation,history and other laboratory results. If the results areinconsistent with clinical evidence, additional testing issuggested to confirm the result. Blood Venous blood specimen / Unknown 12/19/2024 12:11 PM EDT 12/19/2024 1:20 PM EDT Rebekah Napoles MD LAB BLOOD ORDERABLES Final Resul t Performing Organization Address [facility] de Phone Number [facility] [address] [place] [address] [phone] * (ABNORMAL) Lipid Panel with Reflex to Direct LDL (12/30/2023 11:06 AM EDT) Triglycerides 90 <150 mg/dL [facility] Comment:Desirable Triglyceri de: less than 150 mg/dLBorderline High Triglyceride 150-199 mg/dLHigh Triglyceride: 200-499 mg/dLVery High Triglyceride: greater than or equal to 5OO mg/dL Cholesterol 164 <200 mg/dL [facility] Comment:Desirable Cholestero l: less than 200 mg/dLBorderline High Cholesterol: 200-239 mg/dLHigh Cholesterol: greater than 239 mg/dL LDL Cholesterol Calculated 100(H) <100 mg/dL [facility] Comment:Desirable LDL: less than 100 mg/dLNear Optimal/Above Optimal LDL: 110- 129 mg/dLBorderline High LDL: 130-159 mg/dLHigh LDL: 160-189 mg/dLVery High LDL: greater than or equal to 190 mg/dL HDL Cholesterol 46 >40 mg/dL [facility] Comment:Desirable HDL: great er than 40 mg/dL Note: This HDL assay may give artificially low results in patients with liver disease. Blood 12/30/2023 11:0 6 AM EDT 12/30/2023 1:30 PM EDT Rebekah Napoles MD LAB BLOOD ORDERABLES Final Resul t Performing Organization Address [facility] Co de Phone Number [facility] [address] [place] [address] [phone] * HPV mRNA E6/E7 (06/08/2017 1:23 PM EDT) HPV mRNA E6/E7 Not Detected NOT DETECTED [facility] Comment: This test was performed using the APTIMA(R) HPV Assay ([employer] This assay detects E6/E7 viral messenger RNA (mRNA) from 14 high-risk HPV types (16,18,31,33,35,39,45,51, 52,56,58,59,66,68). For additional information please refer to: http://education.SocialVest/faq/KOF788o7 (This link is being provided for informational/ educational purposes only.) Test Performed by [email or web address], [email or web address] [facility], [address] [place] [id number] Michael Virgen M.D., Ph.D., Director of Laboratories , [place] [id number] Please note: Effective 05/18/2016, HPV testing will be performed using [email or web address]'s APTIMA test which targets mRNA. Detecting mRNA instead of DNA, as in older methods, offers significant improvements in specificity. 06/08/2017 1:23 PM EDT Rebekah Napoles MD HISTORICAL/NON ORDERABLE LABS Fi nal Result [facility] [address] from Last 3 Months or Most Recently Relevant to Health Maintenance Insurance [facility] C3 Care Teams Distribution Driver Relationship Specialty Start Date End Date Rebekah Napoles MD [address] [place] [phone] PCP - General Family Medicine 06/06/12
--- OUTSIDE RECORDS SUMMARY | 2025-05-01 16:27 | XMS_ITS | Encounter Summary ---
Author Organization [employer] Address [address] [facility] [address] [place] [address] Care Team Providers Care [employer] Whe[employer] Ax[employer] Inspector Name Role Phone Rebekah Napoles MD Primary Care Provider [phone] Encounter Details Date Type Department Care Team ([facility] st Contact Info) Description 10/06/2024 Orders Only [facility] [address] [place], [place] [phone] Rebekah Napoles MD [address] [place], [place] [phone] Cyst of right kidney (Primary Dx); Anemia [...] the past 12 months, has t he [employer], gas, oil or water company threatened to [...] Procedure Name Priority Date/Time Associated Diagnosis Comments SYPHILIS SCREEN Routine 12/19/2024 12:11 PM EDT Routine screening for STI (sexually transmitted infection) PATHOLOGIST REVIEW - CBC Routine 12/19/2024 12:11 PM EDT Anemia due to folic acid deficiency, unspecified deficiency type VITAMIN D,25-OH,TOTAL,IA Routine 12/19/2024 12:11 PM EDT Vitamin D deficiency VITAMIN B12/FOLATE, SERUM PANEL Routine 12/19/2024 12:11 PM EDT Anemia due to folic acid deficiency, unspecified deficiency type HEMOGLOBIN ELECTROPHORESIS Routine 12/19/2024 12:11 PM EDT Anemia due to folic acid deficiency, unspecified deficiency type HEPATITIS C AB W/REFL TO HCV RNA, QN, PCR Routine 12/19/2024 12:11 PM EDT Routine screening for STI (sexually transmitted infection) IRON AND TOTAL IRON BINDING CAPACITY Routine 12/19/2024 12:11 PM EDT Anemia due to folic acid deficiency, unspecified deficiency type HEPATITIS B SURFACE ANTIGEN, EIA Routine 12/19/2024 12:11 PM EDT Routine screening for STI (sexually transmitted infection) HIV 1/2 ANTIGEN/ANTIBODY, FOURTH GENERATION W/RFL Routine 12/19/2024 12:11 PM EDT Routine screening for STI (sexually transmitted infection) RETICULOCYTE COUNT Routine 12/19/2024 12 :11 PM [...] Hormone, Intact 103.3(H) 8.7 - 77.1 pg/mL [facility] Blood Venous blood specimen / Unknown 12/19/2024 12:11 PM EDT 12/19/2024 1:20 PM EDT Rebekah Napoles MD LAB BLOOD ORDERABLES Final Resul t Performing Organization Address City/[facility]/ZIP Co de Phone Number [facility] [address] [place] [phone] * (ABNORMAL) Vitamin D, 25-Hydroxy, Total, Immunoassay (12/19/2024 12:11 PM EDT) Vitamin D 25-OH Total 27.8(L) >30 ng/mL [facility] Comment: Health Based Reference Values*< 20 ng/mL Dwhzflqrz58-60 ng/mL Insufficient> 30 ng/mL Sufficient*Robert CASTRO. N Engl J Med. 2007;357:266-280There is [...] Vitamin D results fromdifferent laboratories and methodologies. Published datademonstrated that results from patients undergoinghemodialysis may show a negative bias when tested withvarious automated 25-OH vitamin D assays when compared toLC-MS/MS.When testing samples from patients whose predominant form ofVitamin D is Vitamin D2, such as patients receiving VitaminD2 supplementation, results that are subtherapeutic shouldbe confirmed with another method such as LC-MS/MS. Blood Venous blood specimen / Unknown 12/19/2024 12:11 PM EDT 12/19/2024 1:20 PM EDT Rebekah Napoles MD LAB BLOOD ORDERABLES Final Resul t Performing Organization Address [facility] Co de Phone Number [facility] [address] [place] [phone] * Vitamin B12 (Cobalamin) and Folate Panel, Serum (12/19/2024 12:11 PM EDT) Vitamin B12 303 200 - 900 pg/mL [facility] Comment:NORMAL 200-900 PG/ML INDETERMINATE 160-199 PG/ML DEFICIENT < 160 PG/ML Folate 6.4 > or = 4.0 ng/mL [facility] Comment:Reference Values:> o r = 4.0 ng/mL< 4.0 ng/mL suggests folate deficiency Methotrexate, aminopterin and folinic acid(leucovorin) are chemotherapeutic agents whose molecularstructures are similar to folate; therefore, the Architectfolate assay cannot be used for patients using these drugs. Blood 12/19/2024 12:1 1 PM EDT 12/19/2024 1:27 PM EDT us Rebekah Napoles MD LAB BLOOD ORDERABLES Final Resul t Performing Organization Address [facility] de Phone Number [facility] [address] [place] [phone] * (ABNORMAL) Reticulocyte Count (12/19/2024 12:11 PM EDT) Reticulocytes Absolute 0.067 0.026 - 0.095 X10*6/uL [facility] Immature Retic Fraction 20.9(H) 3.0 - 15.9 % [facility] Retic HGB Equivalent 24.9(L) 30.0 - 35.0 pg [facility] Reticulocyte Percent 1.2 0.5 - 1.8 % [facility] Blood Venous blood specimen / Unknown 12/19/2024 12:11 PM EDT 12/19/2024 1:20 PM EDT Rebekah Napoles MD LAB BLOOD ORDERABLES Final Resul t Performing Organization Address [facility] Co de Phone Number [facility] [address] [place] [address] [phone] * Pathologist Review - CBC (12/19/2024 12:11 PM EDT) Pathologist Review - CBC SEE NOTE [facility] Comment:Scattered red blood cell targets are identified. Otherwise,red blood cells are normal appearing. White blood cells arenormal appearing. Platelets are normal appearing.- John Cabrales M.D. Pathology Blood Venous blood specimen / Unknown 12/19/2024 12:11 PM EDT 12/19/2024 1:20 PM EDT Rebekah Napoles MD LAB BLOOD ORDERABLES Final Resul t Performing Organization Address [facility] Co de Phone Number [facility] [address] [place] [phone] * Iron And Total Iron Binding Capacity (12/19/2024 12:11 PM EDT) Iron 57 30 - 160 mcg/dL [facility] Total Iron Binding Capacity 386 228 - 428 mcg/dL [facility] Percent Iron Saturation 15 15 - 50 % [facility] Unsaturated Iron Binding 329 ug/dL [facility] Blood Venous blood specimen / Unknown 12/19/2024 12:11 PM EDT 12/19/2024 1:20 PM EDT us Rebekah Napoles MD LAB BLOOD ORDERABLES Final Resul t Performing Organization Address [facility] Co de Phone Number [facility] [address] [place] [phone] * (ABNORMAL) Ferritin (12/19/2024 12:11 PM EDT) Ferritin 6(L) 10 - 122 ng/mL [facility] Blood Venous blood specimen / Unknown 12/19/2024 12:11 PM EDT 12/19/2024 1:20 PM EDT Rebekah Napoles MD LAB BLOOD ORDERABLES Final Resul t Performing Organization Address City/[facility]/ZIP Co de Phone Number [facility] [address] [place] [phone] * Hepatitis B surface antigen, EIA (12/19/2024 12:11 PM EDT) Hepatitis B Surface Ag Negative Negative [facility] Blood Venous blood specimen / Unknown 12/19/2024 12:11 PM EDT 12/19/2024 1:20 PM EDT us Rebekah Napoles MD LAB BLOOD ORDERABLES Final Resul t Performing Organization Address City/[facility]/ZIP Co de Phone Number [facility] [address] [place] [phone] * HIV-1/2 Antigen and Antibodies, Fourth Generation, with Reflexes (12/19/2024 12:11 PM EDT) Pathologist [facility] HIV AB/AG Nonreactive Nonreactive [facility] Comment:HIV-1 p24 Ag and/or HIV-1/HIV-2 Ab not detected.A test result that is nonreactive does not exclude thepossibility of exposure to or infection with HIV-1 and/orHIV-2. Nonreactive results in this assay for individualswith prior exposure to HIV-1 and/or HIV-2 may be due toantigen and antibody levels that are below the limit ofdetection of this assay.The [employer] HIV Ag/Ab Combo assay result andsupplemental assay results should be interpreted inconjunction with the patient's clinical presentation,history and other laboratory results. If the results areinconsistent with clinical evidence, additional testing issuggested to confirm the result. Blood Venous blood specimen / Unknown 12/19/2024 12:11 PM EDT 12/19/2024 1:20 PM EDT us Rebekah Napoles MD LAB BLOOD ORDERABLES Final Resul t Performing Organization Address City/[facility]/ZIP Co de Phone Number [facility] [address] [place] [phone] * Hepatitis C Antibody with Reflex to HCV, RNA, Quantitative, Real-Time PCR (12/19/2024 12:11 PM EDT) Pathologist [facility] Hepatitis C Antibody Nonreactive Nonreactive [facility] Comment:Antibodies to HCV no t detected; does not exclude early acuteHCV infection. Blood Venous blood specimen / Unknown 12/19/2024 12:11 PM EDT 12/19/2024 1:20 PM EDT Rebekah Napoles MD LAB BLOOD ORDERABLES Final Resul t Performing Organization Address [facility]/ZIP Co de Phone Number [facility] [address] [place] [phone] * Syphilis Screen (12/19/2024 12:11 PM EDT) Pathologist [facility] Syphilis Screen Nonreactive Nonreactive [facility] Blood 12/19/2024 12:1 1 PM EDT 12/19/2024 1:27 PM EDT Rebekah Napoles MD LAB BLOOD ORDERABLES Final Resul t Performing Organization Address [facility] Co de Phone Number [facility] [address] [place] [phone] * (ABNORMAL) Hemoglobin Electrophoresis (12/19/2024 12:11 PM EDT) Pathologist [facility] RBC 5.44(A) 3.80 - 5.10 Million/u L [facility] Hemoglobin 12.4 11.7 - 15.5 g/dL [facility] Hematocrit 40.6 35.0 - 45.0 % [facility] MCV 74.6(A) 80.0 - 100.0 fL [facility] MCH 22.8(A) 27.0 - 33.0 pg [facility] RDW 16.1(A) 11.0 - 15.0 % [facility] Hemoglobin A 97.4 >96.0 % [facility] Hemoglobin A2 2.3 2.0 - 3.2 % [facility] Hemoglobin F 0.3 <2.0 % [facility] Hemoglobin S TNP [facility] Hemoglobin C TNP [facility] Hemoglobin E TNP [facility] Other Hemoglobin TNP [facility] Other Hemoglobin 2 TNP H [facility] Hgb Interpretation SEE NOTE H [facility] Comment:Microcytosis and nor mal hemoglobin pattern may be seen in irondeficiency or alpha thalassemia. If iron deficiency is corrected /ruled out but MCV remains in low range molecular testing should beconsidered for genetic counselling reasons ([employer] TestCode 48789).THIS TEST WAS PERFORMED AT:[facility] [address] [phone] SAINZ MD Blood Venous blood specimen / Unknown 12/19/2024 12:11 PM EDT 12/19/2024 1:20 PM EDT Rebekah Napoles MD LAB BLOOD ORDERABLES Final Resul t [facility] [address] [place] [address] [phone] * US Abdomen Limited (10/06/2024 1:30 PM EST) Anatomical Region Laterality Modality Abdomen Ultrasound 10/06/2024 1:30 PM EST Narrative 10/06/2024 2:35 PM EST [address] [address] Ultrasound Report Signed Patient: Verónica Starkey MR# : [id number] : 1985 Acct:[id number] Age/Sex: 39 / F ADM Date: 10/06/24 Loc: HO.ED Attending Dr: Ordering Physician: Madonna Basilio Date of Service: 10/06/24 Procedure(s): US abdomen limited Accession Number(s): [id number] cc: Madonna Basilio; Rebekah Napoles MD EXAMINATION: [...] by: Clinton Capps MD 10/06/2024 02:25 PM [facility] Dictated By: Clinton Naranjo MD Signed By: <Electronically signed by Clinton Lopez MD in OV> 10/06/24 1425 DD/ 1330 TD/TT: 10/06/24 1400 Webmethods Consultant: Procedure Note Donotuseinterpreter, Image - 10/06/2024 [place] [address] Ultrasound Report Signed Patient: Verónica Starkey CMR# : [id number] : 1985Acct:[id number] Age/Sex: 39 / FADM Date: 10/06/24 Loc: HO.ED Attending Dr: Ordering Physician: Madonna Basilio Date of Service: 10/06/24 Procedure(s): US abdomen limited Accession Number(s): [id number] cc: Madonna Basilio; Rebekah Napoles MD EXAMINATION: [...] 10/06/24 1425 DD/ 1330 TD/TT: 10/06/24 1400 Webmethods Consultant: [facility] External Provider IMG US PROCEDURES Final Result * HCG, Qualitative, Urine (10/06/2024 11:14 AM EST) Urine NEGATIVE NEGATIVE [facility] Comment:This test was develo ped to detect early . Falsenegative results may occur after the 5th - 7th week ofpregnancy when using this test method. If clinicallyindicated, consider a serum hCG. 10/06/2024 11:1 4 AM EST 10/06/2024 11:18 AM EST Generic External Data Provider LAB URINE ORDERAB LES Final Result [facility] [place] [place] [phone] * Urinalysis w/reflex microscopic (10/06/2024 11:14 AM EST) Color Urine Yellow [facility] Appearance Urine Clear [facility] PH 5.5 5.0 - 9.0 [facility] Glucose Urine UA Negative Negative mg/dL [facility] Urine Blood Negative Negative [facility] Specific [place] - Urine 1.020 1.005 - 1.025 [facility] Urine Protein Negative Neg-Trace mg/dL [facility] Urine Ketones Trace Negative mg/dL [facility] Nitrite Urine Negative Negative [facility] Leukocyte Esterase Urine Negative Negative [facility] 10/06/2024 11:1 4 AM EST 10/06/2024 11:18 AM EST Narrative [facility] - 10/06/2024 11:23 AM EST [id number], [employer] us Generic External Data Provider LAB URINE ORDERAB LES Final Result [facility] [address] [place] [phone] * (ABNORMAL) Comprehensive Metabolic Panel (10/06/2024 11:13 AM EST) Sodium 140 135 - 145 mmol/L [facility] Potassium 4.3 3.3 - 5.1 mmol/L [facility] Chloride 110(H) 96 - 108 mmol/L [facility] Carbon Dioxide 25 22 - 29 mmol/L [facility] Anion Gap 9(L) 12 - 20 [facility] Urea Nitrogen (BUN) 5(L) 9 - 16 mg/dL [facility] Creatinine, Serum 0.70 0.5 - 1.4 mg/dL [facility] Creatinine Clr Calc Pharmacy 125.8 [facility] Comment:Provided height and weight: 172.72 cm,87.09 kg.eGFR (calculated from the MDRD study equation) and eCrCl(calculated from the Cockcroft-Gault equation) are based ondifferent parameters and may not yield comparable results.If eCrCl result is absurd, please check patient'sheight/weight. Estimated Glomerular Filt Rate >60 [facility] Comment:Chronic Kidney Disea se: Estimated GFR < 60 mL/min/1.46n2Lzzmet Kidney Disease: Estimated GFR < 15 mL/min/1.73m2 Glucose 83 60 - 115 mg/dL [facility] Calcium 9.5 8.4 - 10.2 mg/dL [facility] Bilirubin, Total 0.3 0.0 - 1.0 mg/dL [facility] Aspartate Amino Transferase 21 5 - 31 U/L [facility] Alanine Aminotransferase 13 0 - 31 U/L [facility] Total Protein 7.9 6.5 - 8.0 g/dL [facility] Albumin Level 4.0 3.5 - 5.0 g/dL [facility] Alkaline Phosphatase 128(H) 39 - 117 U/L [facility] 10/06/2024 11:1 3 AM EST 10/06/2024 11:18 AM EST us Generic External Data Provider LAB BLOOD ORDERAB LES Final Result Performing Organization Address City/State/[facility] Co de Phone Number [facility] [address] [place] [phone] * (ABNORMAL) CBC auto differential (10/06/2024 11:13 AM EST) White Blood Count 8.0 4.8 - 10.8 X10*3/uL [facility] Red Blood Count 5.13 4.20 - 5.50 X10*6/uL [facility] Hemoglobin 11.8(L) 12.0 - 16.0 g/dl [facility] Hematocrit 38.1 37.0 - 47.0 % [facility] Mean Corpuscular Volume 74.3(L) 80.0 - 98.0 fL [facility] Mean Corpuscular Hemoglobin 23.0(L) 27.0 - 33.0 pg [facility] Mean Corpuscular HGB Conc 31.0 31.0 - 35.0 g/dl [facility] Red Cell Distribution Width 15.0 11.0 - 16.0 % [facility] Platelet Count 172 160 - 400 X10*3/uL [facility] Mean Platelet Volume 10.8 9.4 - 12.3 fL [facility] Neutrophils Percent Auto 54.3 45 - 73 % [facility] Imm Gran Pct Auto 0.1 0.0 - 0.4 % [facility] Lymphocytes Percent Auto 38.4 20 - 40 % [facility] Monocytes Percent Auto 6.5 2 - 11 % [facility] Eosinophils Percent Auto 0.5 0 - 4 % [facility] Basophils Percent Auto 0.2 0 - 2 % [facility] NRBC Pct Auto 0.0 0.0 - 0.2 /100WBC [facility] Neutrophils Absolute Auto 4.4 2.0 - 8.3 x10*3/uL [facility] Imm Gran Abs Auto 0.01 0.00 - 0.03 X10*3/uL [facility] Lymphocytes Absolute Auto 3.1 1.2 - 4.9 X10*3/uL [facility] Monocytes Absolute Auto 0.5 0.1 - 1.2 X10*3/uL [facility] Eosinophils Absolute Auto 0.0 0.0 - 0.4 X10*3/uL [facility] Basophils Absolute Auto 0.0 0.0 - 0.2 X10*3/uL [facility] NRBC Abs Auto 0.000 0.0 - 0.012 X10*3/uL [facility] 10/06/2024 11:1 3 AM EST 10/06/2024 11:18 AM EST us Generic External Data Provider LAB BLOOD ORDERAB LES Final Result [facility] [address] [place] [phone] documented in this encounter Visit Diagnoses [...] documented as of this encounter Care Teams [employer] Inspector Relationship Specialty Start Date End Date Rebekah Napoles MD [address] [place] [address] PCP - General Family Medicine 06/06/12 documented as of this encounter
--- OUTSIDE RECORDS SUMMARY | 2025-05-01 16:27 | XMS_ITS | Clinical Summary ---
Author Organization [facility] Address [address] [place] [address] Phone Care Team Providers Care Renewals Representative Name Role Phone Rebekah Napoles MD Primary Care Provider [phone] Allergies Active Allergy Reactions Criticality Noted Date Comments Oxycodone-Acetaminophen Hives 02/07/2025 Medications ibuprofen (ADVIL,MOTRIN) 600 mg tablet Take 1 tablet (600 mg total) by mouth every 6 (six) hours if needed for mild pain. 30 tablet 5 Active albuterol HFA (PROAIR HFA ; PROVENTIL HFA ; VENTOLIN HFA) 90 mcg/actuation inhaler Inhale 2 puffs by mouth every 4 (four) hours if needed for wheezing or shortness of breath. 3 Active Encounters Date Type Department Care Team Description 02/08/2025 1:56 AM EDT - 02/08/2025 7:04 AM EDT Emergency [facility] Emergency [address] [place] [address] Laney Silverio MD Exacerbation of asthma, unspecified asthma severity, unspecified whether persistent (Primary Dx); Acute bronchitis due to Rhinovirus Discharge Disposition: Home or Self Care from Last 3 Months Surgical History Surgery Date Site/Laterality Comments BELT ABDOMINOPLASTY PROCEDURE: HISTORICAL TUMMY TUCK Medical History Medical History Date Comments Asthma [...] Sign Reading Time Taken Comments Blood Pressure 100/60 02/08/2025 5:47 AM EDT Pulse 78 02/08/2025 5:47 AM EDT Temperature 36.9 C (98.4 F) 02/08/2025 2:14 AM EDT Respiratory Rate 22 02/08/2025 5:47 AM EDT Oxygen Saturation 22% 02/08/2025 5:47 AM EDT Inhaled Oxygen Concentration - - Weight 86.2 kg (190 lb) 02/07/2025 8:43 PM EDT Height 172.7 cm (5' 8 ) 02/07/2025 8:43 PM EDT Body Mass Index 28.89 02/07/2025 8:43 PM EDT Plan of Treatment Health Maintenance Due Date Last Done Comments Hepatitis B Vaccines (1 of 3 - 19+ 3-dose series) 2005 Cervical Cancer Screening: P ap Smear 2007 Pneumococcal Vaccine: Pediatrics (0 to 5 Years) and At-Risk Patients (6 to 49 Years) (2 of 2 - PCV) 08/14/2015 08/14/2014 Cholesterol Screening (Lipid Panel) 08/04/2022 Social Influencers of Health Screening 08/04/2022 COVID-19 Vaccine (1 - 2023-2 5 season) 2024 Depression Screening 09/06/2024 Influenza Vaccine (#1) 2025 4, 06/20/2012 DTaP,Tdap,and Td Vaccines (3 - Td or Tdap) 01/25/2031 01/25/2021, 08/14/2014 HPV Vaccines Completed 09/07/2012, 05/02/2012, 03/03/2012 HIV Screening Completed 12/19/2024, 12/30/2023 Hepatitis C Screening Completed 12/19/2024 , 12/30/2023 HIB Vaccines Aged Out No longer [...] Procedure Name Priority Date/Time Associated Diagnosis Comments XR CHEST 2 VIEWS STAT 02/08/2025 1:27 AM EDT POC , URINE DIAGNOSTIC STAT 02/08/2025 12:40 AM EDT RESPIRATORY VIRUS PANEL MOLECULAR STUDY STAT 02/08/2025 12:28 AM EDT ECG ANNOTATED 02/08/2025 CBC WITH AUTO DIFFERENTIAL STAT 02/07/2025 8:46 PM EDT MAGNESIUM STAT 02/07/2025 8:46 PM EDT BASIC METABOLIC PANEL STAT 02/07/2025 8:46 PM EDT CBC AND DIFFERENTIAL STAT 02/07/2025 8:46 PM EDT ECG 12-LEAD STAT 02/07/2025 8:43 PM EDT from Last 3 Months Results * XR Chest 2 Views (02/08/2025 1:27 AM EDT) Anatomical Region Laterality Modality Body Radiographic Lily ging 02/08/2025 8:12 AM EDT Impressions 02/08/2025 8:13 AM EDT Normal examination. No change since the prior study performed 09/26/2024. Code 64603 -------- FINAL REPORT -------- Dictated By: Baldev Pham Dictated Date: 02/08/2025 08:12 ET Assigned Physician: Baldev Pham Reviewed and Electronically Signed By: Baldev Pham Signed Date: 02/08/2025 08:13 ET Workstation ID: [id number] Transcribed By: Self Edit Transcribed Date: 02/08/2025 08:12 ET Narrative 02/08/2025 8:13 AM EDT HISTORY: The patient is a 39-year-old female with dyspnea. FINDINGS: PA and lateral radiographs of the chest demonstrate normal appearance of the bony structures. The cardiac and mediastinal contours are within normal limits. The lungs and costophrenic angles are clear. Procedure Note Baldev Pham MD - 02/08/2025 HISTORY: The patient is a 39-year-old female with dyspnea. FINDINGS: PA and lateral radiographs of the chest demonstrate normalappearance of the bony structures. The cardiac and mediastinal contoursare within normal limits. The lungs and costophrenic angles are clear. IMPRESSION: Normal examination. No change since the prior study performed 09/26/2024. Code 39049 -------- FINAL REPORT -------- Dictated By: Baldev Pham Dictated Date: 02/08/2025 08:12 ET Assigned Physician: Baldev Pham Reviewed and Electronically Signed By: Baldev Pham Signed Date: 02/08/2025 08:13 ET Workstation ID: [id number] Transcribed By: Self Edit Transcribed Date: 02/08/2025 08:12 ET us Elian Bob DO IMG XR PROCEDURES Final Result * POC , urine manually resulted (02/08/2025 12:40 AM EDT) [facility] HCG, Ur POC Negative Negative POC hCG Int QC Pass? Yes Yes Urine Urine specimen obtained by clean catch procedure / Unknown 02/08/2025 12:40 AM EDT us Elian Bob DO POINT OF CARE TEST ENTER/EDIT ORDERABLES Final Result * (ABNORMAL) Respiratory virus panel molecular study (02/08/2025 12:28 AM EDT) [facility] Adenovirus Detection by PCR Not Detected Not Detected LAB MICROBIOLOGY METHOD 02/08/2025 1:40 AM EDT [facility] Influenza A PCR Not Detected Not Detected LAB MICROBIOLOGY METHOD 02/08/2025 1:40 AM EDT [facility] Influenza B PCR Not Detected Not Detected LAB MICROBIOLOGY METHOD 02/08/2025 1:40 AM EDT [facility] Coronavirus 229E Not Detected Not Detected LAB MICROBIOLOGY METHOD 02/08/2025 1:40 AM EDT [facility] Coronavirus HKU1 Not Detected Not Detected LAB MICROBIOLOGY METHOD 02/08/2025 1:40 AM EDT [facility] Coronavirus OC43 Not Detected Not Detected LAB MICROBIOLOGY METHOD 02/08/2025 1:40 AM EDT [facility] Coronavirus NL63 Not Detected Not Detected LAB MICROBIOLOGY METHOD 02/08/2025 1:40 AM EDT [facility] Parainfluenza Virus 1 Not Detected Not Detected LAB MICROBIOLOGY METHOD 02/08/2025 1:40 AM EDT [facility] Parainfluenza Virus 2 Not Detected Not Detected LAB MICROBIOLOGY METHOD 02/08/2025 1:40 AM EDT [facility] Parainfluenza Virus 3 Not Detected Not Detected LAB MICROBIOLOGY METHOD 02/08/2025 1:40 AM EDT [facility] Parainfluenza Virus 4 Not Detected Not Detected LAB MICROBIOLOGY METHOD 02/08/2025 1:40 AM EDT [facility] RSV PCR Not Detected Not Detected LAB MICROBIOLOGY METHOD 02/08/2025 1:40 AM EDT [facility] Human Metapneumovirus A and B Not Detected Not Detected LAB MICROBIOLOGY METHOD 02/08/2025 1:40 AM EDT [facility] Rhinovirus/Entero virus Detected(A ) Not Detected LAB MICROBIOLOGY METHOD 02/08/2025 1:40 AM EDT [facility] Bordetella pertussis Not Detected Not Detected LAB MICROBIOLOGY METHOD 02/08/2025 1:40 AM EDT [facility] Bordetella parapertussis Not Detected Not Detected LAB MICROBIOLOGY METHOD 02/08/2025 1:40 AM EDT [facility] Mycoplasma pneumo by PCR Not Detected Not Detected LAB MICROBIOLOGY METHOD 02/08/2025 1:40 AM EDT [facility] Chlamydia pneumoniae Not Detected Not Detected LAB MICROBIOLOGY METHOD 02/08/2025 1:40 AM EDT [facility] SARS COV-2 Not Detected Not Detected LAB MICROBIOLOGY METHOD 02/08/2025 1:40 AM EDT [facility] Sputum Both anterior nares / Unknown Non-blood Collection / Unknown 02/08/2025 12:28 AM EDT 02/08/2025 12:42 AM EDT Narrative [facility] - 02/08/2025 1:40 AM EDT Testing was performed using the N-Trig Respiratory Pathogen PCR Assay. All results must [...] that are below the limit of detection. Elian Bob DO LAB MICROBIOLOGY - GENERAL ORD ERABLES Final Result [facility] [address] [place] [address], * ECG-Annotated (02/08/2025) us Provider Onbase MD ECG ORDERABLES Final Result * (ABNORMAL) CBC auto differential (02/07/2025 8:46 PM EDT) WBC 8.4 4.8 - 10.8 K/mcL LAB HEMETOLOGY METHOD 02/07/2025 9:51 PM [facility] RBC 5.40(H) 3.80 - 4.80 M/mcL LAB HEMETOLOGY [facility] Hemoglobin 12.0 11.5 - 16.0 g/dL LAB HEMETOLOGY METHOD 02/07/2025 9:51 PM [facility] Hematocrit 39.6 35.0 - 47.0 % LAB HEMETOLOGY METHOD 02/07/2025 9:51 PM [facility] MCV 73.6(L) 79.0 - 98.0 FL LAB HEMETOLOGY METHOD 02/07/2025 9:51 PM [facility] MCH 22.3(L) 27.0 - 32.0 pcg LAB HEMETOLOGY METHOD 02/07/2025 9:51 PM [facility] MCHC 30.3(L) 32.0 - 37.0 g/dL LAB HEMETOLOGY METHOD 02/07/2025 9:51 PM [facility] RDW 18.9(H) 11.0 - 15.0 % LAB HEMETOLOGY METHOD 02/07/2025 9:51 PM [facility] Platelets 166 130 - 400 K/mcL LAB HEMETOLOGY METHOD 02/07/2025 9:51 PM [facility] MPV 10.7 7.0 - 11.0 FL LAB HEMETOLOGY METHOD 02/07/2025 9:51 PM [facility] NRBC 0.0 <1.0 % LAB HEMETOLOGY METHOD [facility]07[facility]25 [facility] NRBC Absolute 0.00 <0.10 K/mcL LAB HEMETOLOGY METHOD 02/07/2025 9:51 PM [facility] Neutrophils Relative 43.5 % LAB HEMETOLOGY METHOD 02/07/2025 9:51 PM EDT [facility] Lymphocytes Relative 48.3 % LAB HEMETOLOGY METHOD 02/07/2025 9:51 PM [facility] Monocytes Relative 7.0 % LAB HEMETOLOGY METHOD 02/07/2025 9:51 PM [facility] Eosinophils Relative 0.6 % LAB HEMETOLOGY METHOD 02/07/2025 9:51 PM [facility] Basophils Relative 0.4 % LAB HEMETOLOGY METHOD 02/07/2025 9:51 PM [facility] Immature Granulocytes Relative 0.2 % LAB HEMETOLOGY METHOD 02/07/2025 9:51 PM [facility] Neutrophils Absolute 3.65 1.50 - 7.00 K/mcL LAB HEMETOLOGY METHOD 02/07/2025 9:51 PM [facility] Lymphocytes Absolute 4.05 1.00 - 5.00 K/mcL LAB HEMETOLOGY METHOD 02/07/2025 9:51 PM [facility] Monocytes Absolute 0.59 0.20 - 1.00 K/mcL LAB HEMETOLOGY METHOD 02/07/2025 9:51 PM [facility] Eosinophils Absolute 0.05 0.00 - 0.50 K/mcL LAB HEMETOLOGY METHOD 02/07/2025 9:51 PM [facility] Basophils Absolute 0.03 0.00 - 0.20 K/mcL LAB HEMETOLOGY METHOD 02/07/2025 9:51 PM [facility] Immature Granulocytes Absolute 0.02 0.00 - 0.03 K/mcL LAB HEMETOLOGY METHOD 02/07/2025 9:51 PM [facility] Blood Venous blood specimen / Unknown Venipuncture / Unknown 02/07/2025 8:46 PM EDT 02/07/2025 9:41 PM EDT Elian Bob DO LAB BLOOD ORDERABLES Final Res ult [facility] [address] [place] [address], [place] [phone] * Magnesium (02/07/2025 8:46 PM EDT) Pathologist [facility] Magnesium 2.1 1.9 - 2.6 mg/dL LAB CHEMISTRY METHOD 02/07/2025 10:08 PM EDT [facility] Blood Venous blood specimen / Unknown Venipuncture / Unknown 02/07/2025 8:46 PM EDT 02/07/2025 9:41 PM EDT Elian Bob DO LAB BLOOD ORDERABLES Final Res ult Performing Organization Address [facility] [address]/ZIP Co de Phone Number [facility] [address] [place] [address], [place] [phone] * Basic metabolic panel (02/07/2025 8:46 PM EDT) [facility] Sodium 137 133 - 145 mmol/L LAB CHEMISTRY METHOD 02/07/2025 10:08 PM [facility] Potassium 3.9 3.5 - 5.5 mmol/L LAB CHEMISTRY METHOD 02/07/2025 10:[facility] Chloride 106 96 - 110 mmol/L LAB CHEMISTRY METHOD 02/07/2025 10:08 PM [facility] CO2 27 21 - 32 mmol/L LAB CHEMISTRY METHOD 02/07/2025 10:08 PM T [facility] Anion Gap 4 3 - 11 LAB CHEMISTRY METHOD 02/07/2025 10:08 PM [facility] Glucose 100 70 - 100 mg/dL LAB CHEMISTRY METHOD 02/07/2025 10:08 PM [facility] BUN 8 5 - 25 mg/dL LAB CHEMISTRY METHOD 02/07/2025 10:08 PM EDT [facility] Creatinine 0.78 0.50 - 1.10 mg/dL LAB CHEMISTRY METHOD 02/07/2025 10:08 PM EDT [facility] eGFR 100 >=60 mL/min/1. 73m2 LAB CHEMISTRY METHOD 02/07/2025 10:08 PM EDT [facility] Comment:Calculation based on the Chronic Kidney Disease Epidemiology Collaboration (CKD-EPI) equation refit without adjustment for race. BUN/Creatinine Ratio 10.3 LAB CHEMISTRY METHOD 02/07/2025 10:08 PM EDT [facility] Calcium 9.5 8.5 - 10.5 mg/dL LAB CHEMISTRY METHOD 02/07/2025 10:08 PM EDT [facility] Blood Venous blood specimen / Unknown Venipuncture / Unknown 02/07/2025 8:46 PM EDT 02/07/2025 9:41 PM EDT us Elian Bob DO LAB BLOOD ORDERABLES Final Res ult [facility] [address] [place] [address], * ECG 12 lead (02/07/2025 8:43 PM EDT) Ventricular Rate ECG 99 BPM GEMUSE Atrial Rate 99 BPM GEMUSE P-R Interval 132 ms GEMUSE QRS Duration 74 ms GEMUSE Q-T Interval 334 ms GEMUSE QTc 428 ms GEMUSE P Wave [place] 50 degrees GEMUSE R [place] 31 degrees GEMUSE T [place] 57 degrees GEMUSE ECG Interpretation Normal sinus rhythm Low voltage QRS When compared with ECG of 07-JUN-2021 14:02, Premature ventricular complexes are no longer Present Confirmed by KEVIN RAMOS ([id number]) on 02/09/2025 8:10:33 AM GEMUSE 02/07/2025 8:43 PM EDT 02/09/2025 8:10 AM EDT us Elian Bob DO ECG ORDERABLES Final Result GEMUSE from Last 3 Months Insurance MEDICAID - [place] Care Teams Renewals Representative Relationship Specialty Start Date End Date Rebekah Napoles MD [address] [place] [phone] PCP - General Family Medicine 09/26/24
== END 2025-05-01 16:29 | disposition home or self-care (01) ==
LOC: HO.HUSH 15:31
PROVIDERS: PCP Family Medicine; Visit Provider Nurse Practitioner Family
DX: Z13.9 Encounter for screening, unspecified (principal); N28.9 Disorder of kidney and ureter, unspecified
CPT/HCPCS: 99203

== ENCOUNTER → 2025-05-01 15:31 | Outpatient (BNVA) | payer MEDICAID, SELFPAY | PROVIDERS: PCP Family Medicine; Visit Provider Nurse Practitioner Family | DX: N28.9 Disorder of kidney and ureter, unspecified (principal); Z13.9 Encounter for screening, unspecified | CPT/HCPCS: 51798; 81003; 99212 ==

== ENCOUNTER → 2025-07-20 11:35 | Outpatient (BNV) | payer MEDICAID, SELFPAY | PROVIDERS: PCP Family Medicine; Visit Provider Radiology Diagnostic Radiology | DX: N28.9 Disorder of kidney and ureter, unspecified (principal) | CPT/HCPCS: 74183 ==

== ENCOUNTER 2025-07-20 11:36 | Outpatient (REF) | payer MEDICAID, SELFPAY ==
--- NOTE | ~2025-07-20 | MR_ITS ---
EXAMINATION: MR ABDOMEN WITHOUT THEN WITH IV CONTRAST HISTORY: N28.9 - Disorder of kidney and ureter, unspecified COMPARISON: Previous CT of the abdomen and pelvis January 2018, renal ultrasound most recent January 2019 and abdominal ultrasound September 2024 TECHNIQUE: Axial in and out of phase T1-weighted gradient echo, axial diffusion weighted, and axial and coronal HASTE T2 with fat saturation images were obtained through the abdomen. Subsequently, fat suppressed axial and coronal T1-weighted images were obtained after the intravenous administration of 10 mL Gadavist. FINDINGS: Liver: There is no loss of signal intensity in the liver on opposed phase imaging to suggest steatosis. The liver is normal in size. There is a bilobed 5 x 11 mm low signal T1 and high signal T2 lesion high in the dome segment segment 7. This demonstrates peripheral puddling enhancement and fills in on later sequences matching that of blood pool compatible with a hemangioma, for example axial image 12 series 14. There is a 1.5 x 2 cm lesion in the central right lobe segment 8. This demonstrates delayed peripheral puddling enhancement and fills in on later sequences matching that of blood pool compatible with a hemangioma for example axial image 18 series 14. There is a third 5 mm high signal T2 lesion in the left lobe segment 2. This is not seen on all sequences and not definitely appreciated on precontrast T1-weighted sequences. This is difficult to accurately characterize. This demonstrates homogeneous enhancement on delayed sequences postcontrast following that of blood pool and probably represents a hemangioma as well for example axial image 19 series 4. No suspicious liver lesion. The hepatic and portal veins are patent. There is no intrahepatic biliary dilatation. Gallbladder/biliary tree: Gallstones. Gallbladder otherwise normal.. The common bile duct is normal in caliber. No intraluminal filling defects are identified to suggest choledocholithiasis. Spleen: The spleen is unremarkable. There is a small splenule. Pancreas: The pancreas is unremarkable. There is no enhancing pancreatic mass. The pancreatic duct is normal in caliber. Adrenals: The adrenal glands are unremarkable. Kidneys: 2.2 x 2.4 x 2.2 cm cyst in the anterior mid right kidney. This is minimally complex with several thin nonenhancing septations. 1 cm simple cyst in the posterior upper pole of the right kidney. No suspicious features. No solid renal mass. The left kidney is normal. There is no hydronephrosis. Visualized ureters do not appear dilated. Lymph nodes: There is no retroperitoneal lymphadenopathy in the upper abdomen. Fluid: There is no ascites in the upper abdomen. Visualized bowel: Diverticulosis of the colon. Visualized bones: The visualized bones demonstrate normal marrow signal intensity. MR/MR abdomen wo/w con IMPRESSION: Two right renal cysts, largest measuring 2.4 x 2.2 cm with thin nonenhancing septation and 1 cm simple cyst. No renal mass or hydronephrosis. 3 liver lesions. The 2 larger lesions are compatible with benign hemangiomas. The smallest lesion is not seen on all sequences and difficult to accurately characterize but probably represents a hemangioma as well. Gallstones. Electronically signed by: Negin White MD 07/20/2025 01:12 PM [facility]
== END 2025-07-20 11:37 | disposition home or self-care (01) ==
LOC: HO.MRI 11:36
PROVIDERS: PCP Family Medicine; Visit Provider Nurse Practitioner Family
DX: N28.9 Disorder of kidney and ureter, unspecified (principal)
CPT/HCPCS: 74183; A9585

== ENCOUNTER 2025-07-27 11:52 | Outpatient (REF) | payer MEDICAID, SELFPAY ==
--- NOTE | ~2025-07-27 | XR_ITS ---
EXAMINATION: XR SHOULDER, RIGHT CLINICAL INFORMATION: PAIN COMPARISON: None available. TECHNIQUE: Three views of the right shoulder. FINDINGS: Normal bone mineralization. No fracture, dislocation, or suspicious bone lesion. Normal alignment. The glenohumeral joint is normal. The AC joint is normal. There is a type II acromion. No undersurface spurring. The subacromial space is preserved. Remainder of the soft tissue and bony structures appear normal. XR/XR shoulder RT min 2V IMPRESSION: Normal right shoulder. Electronically signed by: Santiago Diaz MD 07/27/2025 12:42 PM [facility]
--- OUTSIDE RECORDS SUMMARY | 2025-07-27 11:20 | XMS_ITS | Encounter Summary ---
Author Organization [employer] Address [address] [facility] 7 [place] [address] Care Team Providers Care Hoisting Machine Operator Name Role Phone Rebekah Napoles MD Primary Care Provider [phone] Reason for Referral * Consultation (Routine) - Pending Review Specialty Diagnoses / Procedures Referred By Tyler diaz Referred To Contact Orthopaedic Surgery Diagnoses Acute pain of right shoulder Thomas Vernon MD [address] [place] [address] Phone: tel: fax: Referral ID Status Reason Start Date Expiration Date Visits Requested Visits Authorized [id number] Pending Review Specialty Services Required 07/27/2026 1 1 Reason for Visit * Reason Comments Right shoulder pain Encounter Details Date Type Department Care Team (Late st Contact Info) Description 07/27/2025 11:20 AM EST Office Visit [facility] [address] [place] [phone] Thomas Vernon MD [address] [place] [phone] Acute pain of right shoulder (Primary Dx) [...] and she improved with the use of [id number] NSAIDs. She does not have any fevers or chills. No similar joint pains elsewhere. She explains to me that she had a right clavicle fracture as an and she wonders if this is the [...] tendinopathy? Shoulder bursitis?Patient is recommended referral to quality control specialist, evaluation with x-ray of the right shoulder prior to quality control specialist evaluation, I prescribed a course of meloxicam for the pain. Orders: - XR Shoulder 2+ Views Right; Future - Referral to Orthopaedic Surgery; Future Other orders - meloxicam (Mobic) 7.5 MG tablet; Take 1 tablet (7.5 mg) by mouth Once per day. documented in this encounter Plan of Treatment Scheduled Orders Name Type Priority Associated Diagnoses Orde r Schedule XR Shoulder 2+ Views Right Imaging Routine Acute pain of right shoulder Expected: 07/27/2025, Expires: 07/27/2026 Scheduled Referrals Name Type Priority Associated Diagnoses Order Schedule Referral to Orthopaedic Surgery Outpatient Referral Routine Acute pain of right shoulder Expected: 07/27/2025 (Approximate), Expires: 07/27/2026 documented as of this encounter Visit Diagnoses Diagnosis Acute pain of right shoulder- Primary documented in this encounter Additional Health Concerns Assessment Noted Time PHQ-9 Depression Total Score: 6 01/17/20 25 9:06 AM EDT documented as of this encounter Care Teams Hoisting Machine Operator Relationship Specialty Start Date End Date Rebekah Napoles MD [address] [place] [phone] PCP - General Family Medicine 06/06/12 documented as of this encounter
--- OUTSIDE RECORDS SUMMARY | 2025-07-27 12:35 | XMS_ITS | Encounter Summary ---
Author Organization [employer] Address [address] [facility] [address] [place] [address] Care Team Providers Care Supply Coordinator Name Role Phone Rebekah Napoles MD Primary Care Provider [phone] Encounter Details Date Type Department Care Team (Latest Contact Info) Description 07/27/2025 Travel Social History Tobacco Use Types Packs/Day Years [...] documented as of this encounter Care Teams Supply Coordinator Relationship Specialty Start Date End Date Rebekah Napoles MD [address] [place] [phone] PCP - General Family Medicine 06/06/12 documented as of this encounter
--- OUTSIDE RECORDS SUMMARY | 2025-07-27 12:35 | XMS_ITS | Clinical Summary ---
Author Organization [facility] Address [address] [place] [address] Phone Care Team Providers Care Airplane Cabin Attendant Name Role Phone Rebekah Napoles MD Primary Care Provider [phone] Allergies Active Allergy Reactions Criticality Noted Date [...] wheezing or shortness of breath. 3 Active Surgical History Surgery Date Site/Laterality Comments BELT ABDOMINOPLASTY PROCEDURE: HISTORICAL AMBERMY AMY Medical History Medical History Date Comments Asthma [...] 08/04/2022 Social Influencers of Health Screening 08/04/2022 Depression Screening 09/06/2024 COVID-19 Vaccine (1 - 2024-2 6 season) 2025 Influenza Vaccine (#1) 2025 4, 06/20/2012 DTaP,Tdap,and Td Vaccines (3 - Td or Tdap) 01/25/2031 01/25/2021, 08/14/2014 RSV Immunization Adult Patients (1 - 1-dose 75+ series) 2061 HPV Vaccines Completed 09/07/2012, 05/02/2012, 03/03/2012 HIV [...] on patient's age to complete this topic Insurance MEDICAID - [place] Care Teams Airplane Cabin Attendant Relationship Specialty Start Date End Date Rebekah Napoles MD [address] [place] [phone] PCP - General Family Medicine 09/26/24
--- OUTSIDE RECORDS SUMMARY | 2025-07-27 12:35 | XMS_ITS | Encounter Summary ---
Author Organization [employer] Address [address] [facility] 7 [place] [address] Care Team Providers Care Transcriptionist Name Role Phone Rebekah Napoles MD Primary Care Provider [phone] Reason for Visit * Reason Onset Date Comments Med Refill 05/22/2025 Encounter Details Date Type Department Care Team (Late st Contact Info) Description 05/22/2025 Refill [facility] [address] [place], [place] [phone] Rebekah Napoles MD [address] [place], [place] [phone] Social History Tobacco Use Types Packs/Day Years [...] documented as of this encounter Care Teams Transcriptionist Relationship Specialty Start Date End Date Rebekah Napoles MD [address] [place] [address] PCP - General Family Medicine 06/06/12 documented as of this encounter
--- OUTSIDE RECORDS SUMMARY | 2025-07-27 12:35 | XMS_ITS | Encounter Summary ---
Author Organization [employer] Address [address] [facility] 7 [place] [address] Care Team Providers Care Geodetic Technician Name Role Phone Rebekah Napoles MD Primary Care Provider [phone] Encounter Details Date Type Department Care Team (Late st Contact Info) Description 09/27/2024 Orders Only [facility] [address] [place] [address] Provider, MD David Social History Tobacco Use [...] documented as of this encounter Care Teams Geodetic Technician Relationship Specialty Start Date End Date Rebekah Napoles MD [address] [place] [phone] PCP - General Family Medicine 06/06/12 documented as of this encounter
--- OUTSIDE RECORDS SUMMARY | 2025-07-27 12:35 | XMS_ITS | Encounter Summary ---
Author Organization [employer] Address [address] [facility] 7 [place] [address] Care Team Providers Care Chief Chemist Name Role Phone Rebekah Napoles MD Primary Care Provider Reason for Visit * Reason Onset Date Comments Med Refill 04/16/2025 Encounter Details Date Type Department Care Team (Late st Contact Info) Description 04/16/2025 Refill [facility] [address] [place], [place] [phone] Kelly Arredondo MD [address] [place], [place] [phone] Social History Tobacco Use Types Packs/Day Years [...] documented as of this encounter Care Teams Chief Chemist Relationship Specialty Start Date End Date Rebekah Napoles MD [address] [place] [address] PCP - General Family Medicine 06/06/12 documented as of this encounter
--- OUTSIDE RECORDS SUMMARY | 2025-07-27 12:35 | XMS_ITS | Clinical Summary ---
Author Organization [employer] Address [address] [place] [address] Care Team Providers Care Forestry Technical Officer Name Role Phone Rebekah Napoles MD Primary Care Provider [phone] Allergies No known active allergies Medications ergocalciferol (Vitamin D-2) 1.25 MG (27817 UT) capsule Take 1 capsule by mouth [...] the morning. 90 tablet 1 3 Active albuterol (Proventil HFA) 108 (90 Base) MCG/ACT inhaler Use 2 puffs every 6 hours as needed for difficulty breathing 18 g 3 3 Active albuterol (Ventolin HFA) 108 (90 Base) MCG/ACT inhaler INHALE 2 PUFFS BY MOUTH EVERY 6 HOURS IF NEEDED FOR SHORTNESS OF BREATH 18 g 3 4 Active nicotine polacrilex (Commit) 4 MG lozengeIndicat ions:Tobacco dependence Dissolve 1 lozenge (4 mg) in the mouth every 2 (two) hours if needed for smoking cessation. 100 lozenge 1 4 Active nicotine (Nicoderm CQ) 21 MG/24HR patchIndicatio ns:Tobacco dependence If concern for nightmares, enter a Patch Removal Time in order question to remove before bedtime. 42 patch 1 4 Active cyclobenzaprin e (Flexeril) 10 MG tablet Take 1 tablet (10 mg) by mouth 3 times daily for 10 days. 30 tablet 4 Active Blood Pressure Monitor misc Check BP daily 1 each 5 Active acyclovir (Zovirax) 5 % ointment Apply topically 6 (six) times a day. Space applications every 3 hours. 15 g 5 Active meloxicam (Mobic) 7.5 MG tablet Take 1 tablet (7.5 mg) by mouth Once per day. 14 tablet 5 026 Active naproxen (Naprosyn) 500 MG tablet TAKE 1 TABLET BY MOUTH TWICE A DAY NEEDED FOR PAIN. TAKE WITH FOOD. 30 tablet 1 5 025 Discontin ued(Thera py completed ) Active Problems Problem Noted Date Diagnosed Date [...] EDT): - Normal mammo and US in 2018 - evaluated by surgeon for R breast mass in 2020, s/p biopsy which was benign - check lab again; likely benign cause Obesity 09/14/2016 Iron deficiency anemia 01/20/2016 Assessment & Plan (01/16/2025 8:52 AM EDT): - likely AUB - 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 with PLASTIC SURGERY ASSISTANT for Co Founder And Ceo exam - received Iron Infusions in January and February 2023 from [facility] - pt also has folic acid deficiency; continue folic acid supplementation Assessment & Plan (12/30/2023 10:39 AM EDT): - likely AUB - 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 with PLASTIC SURGERY ASSISTANT for Co Founder And Ceo exam - received Iron Infusions in January and February 2023 from [facility] - pt also has folic acid deficiency; continue folic acid supplementation Assessment & Plan (05/04/2023 1:36 PM EDT): - likely AUB - 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 with PLASTIC SURGERY ASSISTANT for Co Founder And Ceo exam - received Iron Infusions in January and February 2023 from [facility] - pt also has folic acid deficiency; continue folic acid supplementation Assessment & Plan (01/02/2023 7:07 AM EDT): - likely AUB - 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 with PLASTIC SURGERY ASSISTANT for Co Founder And Ceo exam - pt requests iron infusion - refer to hematology service - pt also has folic acid deficiency; continue folic acid supplementation Allergic rhinitis 04/22/2015 Assessment & Plan (12/30/2023 10:40 AM EDT): -Continue Loratadine, prn Assessment & Plan (12/31/2022 12:57 PM EDT): -Continue Loratadine, prn Asthma 11/29/2014 Assessment & Plan (01/16/2025 8:51 AM EDT): -Last exacerbation in Aug 2020, seen in [facility] ED, CTA negative for PE -Oct 2019, Dx bronchitis, Rx prednisone and azithromycin -Previously on Singulair and Flovent, which were discontinued due to poor adherence and less symptom -Continue Albuterol prn -Strongly advised to work on smoking cessation Assessment & Plan (12/30/2023 10:38 AM EDT): -Last exacerbation in Aug 2020, seen in [facility] ED, CTA negative for PE -Oct 2019, Dx bronchitis, Rx prednisone and azithromycin -Previously on Singulair and Flovent, which were discontinued due to poor adherence and less symptom -Continue Albuterol prn -Strongly advised to work on smoking cessation Assessment & Plan (01/02/2023 7:06 AM EDT): -Last exacerbation in Aug 2020, seen in [facility] ED, CTA negative for PE -Oct 2019, Dx bronchitis, Rx prednisone and azithromycin -Previously on Singulair and Flovent, which were discontinued due to poor adherence and less symptom -Continue Albuterol prn -Strongly advised to work on smoking cessation Encounters Date Type Department Care Team Description 07/27/2025 11:20 AM EST Office Visit [facility] [address] [place] [phone] Name, MD Thomas Acute pain of right shoulder (Primary Dx) 07/27/2025 Travel 07/20/2025 Orders Only [facility] External Provider, [facility] 05/22/2025 Refill [facility] [address] [place], [place] [phone] Rebekah Napoles MD 05/22/2025 Refill [facility] [address] [place] [address] Rebekah Napoles MD from Last 3 Months Immunizations Immunization Administration [...] your housing situation today? I have ishan sing 01/15/[address] you li [...] 2 oz) 07/27/2025 11:32 AM EST Height 172.7 cm (5' 8 ) 01/15/2025 4:07 PM EDT Body Mass Index 32.56 01/15/2025 4:07 PM EDT Plan of Treatment Health Maintenance Due Date Last Done Comments Family Planning (PISQ) 2001 Hepatitis B Vaccines (1 of 3 - 19+ 3-dose series) 2005 Pap Smear 2007 Pneumococcal Vaccine: Pediatrics (0 to 5 Years) and At-Risk Patients (6 to 49) Years (2 of 2 - PCV) 08/14/2015 08/14/2014 Cervical Cancer Screening 06/08/2022 HPV/Cotest 06/08/2022 06/08/2017 COVID-19 Vaccine (1 - season) 2025 Influenza Vaccine (#1) 2025 08/14/2014, 2011 Disability Screening 01/14/2026 01/14/2025 Alcohol/Substance Use Screening 01/15/2026 01/15/2025 SDOH Screening 01/15/2026 01/15/2025 Depression Screening 01/16/2026 01/16/2025, 01/17/20 Tobacco Screening 07/27/2026 07/27/2025 Lipid Panel 12/29/2028 12/30/2023 DTaP/Tdap/Td Vaccines (3 [...] Procedure Name Priority Date/Time Associated Diagnosis Comments MR ABDOMEN W AND WO CONTRAST Routine 07/20/2025 12:03 PM EST HEPATITIS C AB W/REFL TO [...] Recently Relevant to Health Maintenance Results * MR Abdomen w/ and w/o Contrast (07/20/2025 12:03 PM EST) Anatomical Region Laterality Modality Abdomen Magnetic Resonan ce 07/20/2025 12:0 3 PM EST Narrative 07/20/2025 1:15 PM EST [place] [address] Magnetic Resonance Report Signed Patient: Verónica Starkey MR# : [id number] : 1985 Acct:[id number] Age/Sex: 40 / F ADM Date: 07/20/25 Loc: HO.MRI Attending Dr: Latisha BROWN Ordering Physician: Latisha Banuelos Date of Service: 07/20/25 Procedure(s): MR abdomen wo/w con Accession Number(s): [id number] cc: Latisha Banuelos; Rebekah Napoles MD Reason for Exam: N28.9 - Disorder of kidney and ureter, unspecified EXAMINATION: MR ABDOMEN WITHOUT THEN WITH IV CONTRAST HISTORY: N28.9 - Disorder of kidney and ureter, unspecified COMPARISON: Previous CT of the abdomen and pelvis January 2018, renal ultrasound most recent January 2019 and abdominal ultrasound September 2024 TECHNIQUE: Axial in and out of phase T1-weighted gradient echo, axial diffusion weighted, and axial and coronal HASTE T2 with fat saturation images were obtained through the abdomen. Subsequently, fat suppressed axial and coronal T1-weighted images were obtained after the intravenous administration of 10 mL Gadavist. FINDINGS: Liver: There is no loss of signal intensity in the liver on opposed phase imaging to suggest steatosis. The liver is normal in size. There is a bilobed 5 x 11 mm low signal T1 and high signal T2 lesion high in the dome segment segment 7. This demonstrates peripheral puddling enhancement and fills in on later sequences matching that of blood pool compatible with a hemangioma, for example axial image 12 series 14. There is a 1.5 x 2 cm lesion in the central right lobe segment 8. This demonstrates delayed peripheral puddling enhancement and fills in on later sequences matching that of blood pool compatible with a hemangioma for example axial image 18 series 14. There is a third 5 mm high signal T2 lesion in the left lobe segment 2. This is not seen on all sequences and not definitely appreciated on precontrast T1-weighted sequences. This is difficult to accurately characterize. This demonstrates homogeneous enhancement on delayed sequences postcontrast following that of blood pool and probably represents a hemangioma as well for example axial image 19 series 4. No suspicious liver lesion. The hepatic and portal veins are patent. There is no intrahepatic biliary dilatation. Gallbladder/biliary tree: Gallstones. Gallbladder otherwise normal.. The common bile duct is normal in caliber. No intraluminal filling defects are identified to suggest choledocholithiasis. Spleen: The spleen is unremarkable. There is a small splenule. Pancreas: The pancreas is unremarkable. There is no enhancing pancreatic mass. The pancreatic duct is normal in caliber. Adrenals: The adrenal glands are unremarkable. Kidneys: 2.2 x 2.4 x 2.2 cm cyst in the anterior mid right kidney. This is minimally complex with several thin nonenhancing septations. 1 cm simple cyst in the posterior upper pole of the right kidney. No suspicious features. No solid renal mass. The left kidney is normal. There is no hydronephrosis. Visualized ureters do not appear dilated. Lymph nodes: There is no retroperitoneal lymphadenopathy in the upper abdomen. Fluid: There is no ascites in the upper abdomen. Visualized bowel: Diverticulosis of the colon. Visualized bones: The visualized bones demonstrate normal marrow signal intensity. MR/MR abdomen wo/w con IMPRESSION: Two right renal cysts, largest measuring 2.4 x 2.2 cm with thin nonenhancing septation and 1 cm simple cyst. No renal mass or hydronephrosis. 3 liver lesions. The 2 larger lesions are compatible with benign hemangiomas. The smallest lesion is not seen on all sequences and difficult to accurately characterize but probably represents a hemangioma as well. Gallstones. Electronically signed by: Negin White MD 07/20/2025 01:12 PM [facility] Dictated By: Negin White MD Signed By: <Electronically signed by Negin White MD in [place]> 07/20/25 1312 DD/ 1203 TD/TT: 07/20/25 1228 Brick Loader: FRITZ Procedure Note Donotuseinterpreter, Image - 07/20/2025 [place] [address] Magnetic Resonance Report Signed Patient: Verónica Starkey CMR# : [id number] : 1985Acct:[id number] Age/Sex: 40 / FADM Date: 07/20/25 Loc: HO.MRI Attending Dr: Latisha BROWN Ordering Physician: Latisha Banuelos Date of Service: 07/20/25 Procedure(s): MR abdomen wo/w con Accession Number(s): [id number] cc: Latisha Banuelos; Rebekah Napoles MD Reason for Exam: N28.9 - Disorder of kidney and ureter, unspecified EXAMINATION: MR ABDOMEN WITHOUT THEN WITH IV CONTRAST HISTORY: N28.9 - Disorder of kidney and ureter, unspecified COMPARISON: Previous CT of the abdomen and pelvis January 2018, renal ultrasound most recent January 2019 and abdominal ultrasound September 2024 TECHNIQUE: Axial in and out of phase T1-weighted gradient echo, axial diffusion weighted, and axial and coronal HASTE T2 with fat saturation images were obtained through the abdomen. Subsequently, fat suppressed axial and coronal T1-weighted images were obtained after the intravenous administration of 10 mL Gadavist. FINDINGS: Liver: There is no loss of signal intensity in the liver on opposed phase imaging to suggest steatosis. The liver is normal in size. There is a bilobed 5 x 11 mm low signal T1 and high signal T2 lesion high in the dome segment segment 7. This demonstrates peripheral puddling enhancement and fills in on later sequences matching that of blood pool compatible with a hemangioma, for example axial image 12 series 14. There is a 1.5 x 2 cm lesion in the central right lobe segment 8. This demonstrates delayed peripheral puddling enhancement and fills in on later sequences matching that of blood pool compatible with a hemangioma for example axial image 18 series 14. There is a third 5 mm high signal T2 lesion in the left lobe segment 2. This is not seen on all sequences and not definitely appreciated on precontrast T1-weighted sequences. This is difficult to accurately characterize. This demonstrates homogeneous enhancement on delayed sequences postcontrast following that of blood pool and probably represents a hemangioma as well for example axial image 19 series 4. No suspicious liver lesion. The hepatic and portal veins are patent. There is no intrahepatic biliary dilatation. Gallbladder/biliary tree: Gallstones. Gallbladder otherwise normal.. The common bile duct is normal in caliber. No intraluminal filling defects are identified to suggest choledocholithiasis. Spleen: The spleen is unremarkable. There is a small splenule. Pancreas: The pancreas is unremarkable. There is no enhancing pancreatic mass. The pancreatic duct is normal in caliber. Adrenals: The adrenal glands are unremarkable. Kidneys: 2.2 x 2.4 x 2.2 cm cyst in the anterior mid right kidney. This is minimally complex with several thin nonenhancing septations. 1 cm simple cyst in the posterior upper pole of the right kidney. No suspicious features. No solid renal mass. The left kidney is normal. There is no hydronephrosis. Visualized ureters do not appear dilated. Lymph nodes: There is no retroperitoneal lymphadenopathy in the upper abdomen. Fluid: There is no ascites in the upper abdomen. Visualized bowel: Diverticulosis of the colon. Visualized bones: The visualized bones demonstrate normal marrow signal intensity. MR/MR abdomen wo/w con IMPRESSION: Two right renal cysts, largest measuring 2.4 x 2.2 cm with thin nonenhancing septation and 1 cm simple cyst. No renal mass or hydronephrosis. 3 liver lesions. The 2 larger lesions are compatible with benign hemangiomas. The smallest lesion is not seen on all sequences and difficult to accurately characterize but probably represents a hemangioma as well. Gallstones. Electronically signed by: Negin White MD 07/20/2025 01:12 PM EST RP Dictated By: Negin White MD Signed By: <Electronically signed by Negin White MD in OV> 07/20/25 1312 DD/ 1203 TD/TT: 07/20/25 1228 Brick Loader: FRITZ [facility] External Provider IMG MRI PROCEDURES Final Result * Hepatitis C Antibody with Reflex to HCV, RNA, Quantitative, Real-Time PCR (12/19/2024 12:11 PM EDT) Hepatitis C Antibody Nonreactive Nonreactive [facility] Comment:Antibodies to HCV no t detected; does not exclude early acuteHCV infection. Blood Venous blood specimen / Unknown 12/19/2024 12:11 PM EDT 12/19/2024 1:20 PM EDT Rebekah Napoles MD LAB BLOOD ORDERABLES Final Resul t [facility] [address] [place] [phone] * HIV-1/2 Antigen and Antibodies, Fourth Generation, with Reflexes (12/19/2024 12:11 PM EDT) HIV AB/AG Nonreactive Nonreactive [facility] Comment:HIV-1 p24 Ag and/or HIV-1/HIV-2 Ab not detected.A test result that is nonreactive does not exclude thepossibility of exposure to or infection with HIV-1 and/orHIV-2. Nonreactive results in this assay for individualswith prior exposure to HIV-1 and/or HIV-2 may be due toantigen and antibody levels that are below the limit ofdetection of this assay.The [employer] HIV Ag/Ab Combo assay result andsupplemental assay results should be interpreted inconjunction with the patient's clinical presentation,history and other laboratory results. If the results areinconsistent with clinical evidence, additional testing issuggested to confirm the result. Blood Venous blood specimen / Unknown 12/19/2024 12:11 PM EDT 12/19/2024 1:20 PM EDT us Rebekah Napoles MD LAB BLOOD ORDERABLES Final Resul t [facility] [address] [place] [phone] * (ABNORMAL) Lipid Panel with Reflex to Direct LDL (12/30/2023 11:06 AM EDT) Triglycerides 90 <150 mg/dL [facility] Comment:Desirable Triglyceri de: less than 150 mg/dLBorderline High Triglyceride 150-199 mg/dLHigh Triglyceride: 200-499 mg/dLVery High Triglyceride: greater than or equal to 5OO mg/dL Cholesterol 164 <200 mg/dL [facility] Comment:Desirable Cholestero l: less than 200 mg/dLBorderline High Cholesterol: 200-239 mg/dLHigh Cholesterol: greater than 239 mg/dL LDL Cholesterol Calculated 100(H) <100 mg/dL [facility] Comment:Desirable LDL: less than 100 mg/dLNear Optimal/Above Optimal LDL: 110- 129 mg/dLBorderline High LDL: 130-159 mg/dLHigh LDL: 160-189 mg/dLVery High LDL: greater than or equal to 190 mg/dL HDL Cholesterol 46 >40 mg/dL [facility] Comment:Desirable HDL: great er than 40 mg/dL Note: This HDL assay may give artificially low results in patients with liver disease. Blood 12/30/2023 11:0 6 AM EDT 12/30/2023 1:30 PM EDT Rebekah Napoles MD LAB BLOOD ORDERABLES Final Resul t [facility] [address] [place] [phone] * HPV mRNA E6/E7 (06/08/2017 1:23 PM EDT) HPV mRNA E6/E7 Not Detected NOT DETECTED [facility] Comment: This test was performed using the APTIMA(R) HPV Assay ([employer] This assay detects E6/E7 viral messenger RNA (mRNA) from 14 high-risk HPV types (16,18,31,33,35,39,45,51, 52,56,58,59,66,68). For additional information please refer to: http://education.Buxfer/faq/FYQ249c8 (This link is being provided for informational/ educational purposes only.) Test Performed by [email or web address], [employer] [facility], [address] [place] [id number] Michael Virgen M.D., Ph.D., Director of Laboratories , [facility] [id number] Please note: Effective 05/18/2016, HPV testing will be performed using [employer] APTIMA test which targets mRNA. Detecting mRNA instead of DNA, as in older methods, offers significant improvements in specificity. 06/08/2017 1:23 PM EDT us Rebekah Napoles MD HISTORICAL/NON ORDERABLE LABS Fi nal Result [facility] [address] from Last 3 Months or Most Recently Relevant to Health Maintenance Insurance [facility] C3 Care Teams Forestry Technical Officer Relationship Specialty Start Date End Date Rebekah Napoles MD [address] [place] [phone] PCP - General Family Medicine 06/06/12
--- OUTSIDE RECORDS SUMMARY | 2025-07-27 12:35 | XMS_ITS | Encounter Summary ---
Author Organization [employer] Address [address] [facility] 7t [place] [address] Care Team Providers Care Portable Power Tool Repairer Name Role Phone Rebekah Napoles MD Primary Care Provider [phone] Encounter Details Date Type Department Care Team ([facility] st Contact Info) Description 10/06/2024 Orders Only [facility] [address] [place], [place] [phone] Rebekah Napoles MD [address] [place], [place] [phone] Cyst of right kidney (Primary Dx); Anemia [...] the past 12 months, has t he [employer] gas, oil or water company threatened to [...] Hormone, Intact 103.3(H) 8.7 - 77.1 pg/mL [facility] Blood Venous blood specimen / Unknown 12/19/2024 12:11 PM EDT 12/19/2024 1:20 PM EDT Rebekah Napoles MD LAB BLOOD ORDERABLES Final Resul t Performing Organization Address City/[facility]/ZIP Co de Phone Number [facility] [address] [place] [phone] * (ABNORMAL) Vitamin D, 25-Hydroxy, Total, Immunoassay (12/19/2024 12:11 PM EDT) Vitamin D 25-OH Total 27.8(L) >30 ng/mL [facility] Comment: Health Based Reference Values*< 20 ng/mL Eusukhwwz33-82 ng/mL Insufficient> 30 ng/mL Sufficient*Robert CASTRO. N [...] Resul t Performing Organization Address [facility] Co de Phone Number [facility] [address] [place] [address] [phone] * Vitamin B12 (Cobalamin) and Folate Panel, Serum (12/19/2024 12:11 PM EDT) Vitamin B12 303 200 - 900 pg/mL [facility] Comment:NORMAL 200-900 PG/ML INDETERMINATE 160-199 PG/ML DEFICIENT < 160 PG/ML Folate 6.4 > or = 4.0 ng/mL [facility] Comment:Reference Values:> o r = 4.0 [...] Resul t Performing Organization Address [facility] de Phone Number [facility] [address] [place] [phone] * (ABNORMAL) Reticulocyte Count (12/19/2024 12:11 PM EDT) Reticulocytes Absolute 0.067 0.026 - 0.095 X10*6/uL [facility] Immature Retic Fraction 20.9(H) 3.0 - 15.9 % [facility] Retic HGB Equivalent 24.9(L) 30.0 - 35.0 pg [facility] Reticulocyte Percent 1.2 0.5 - 1.8 % [facility] Blood Venous blood specimen / Unknown 12/19/2024 12:11 PM EDT 12/19/2024 1:20 PM EDT Rebekah Napoles MD LAB BLOOD ORDERABLES Final Resul t Performing Organization Address [facility] Co de Phone Number [facility] [address] [place] [address] [phone] * Pathologist Review - CBC (12/19/2024 12:11 PM EDT) Pathologist Review - CBC SEE NOTE [facility] Comment:Scattered red blood cell targets are identified. Otherwise,red blood cells are normal appearing. White blood cells arenormal appearing. Platelets are normal appearing.- John Cabrales M.D. Pathology Blood Venous blood specimen / Unknown 12/19/2024 12:11 PM EDT 12/19/2024 1:20 PM EDT Rebekah Napoles MD LAB BLOOD ORDERABLES Final Resul t Performing Organization Address [facility] Co de Phone Number [facility] [address] [place] [phone] * Iron And Total Iron Binding Capacity (12/19/2024 12:11 PM EDT) Iron 57 30 - 160 mcg/dL [facility] Total Iron Binding Capacity 386 228 - 428 mcg/dL [facility] Percent Iron Saturation 15 15 - 50 % [facility] Unsaturated Iron Binding 329 ug/dL [facility] Blood Venous blood specimen / Unknown 12/19/2024 12:11 PM EDT 12/19/2024 1:20 PM EDT us Rebekah Napoles MD LAB BLOOD ORDERABLES Final Resul t Performing Organization Address [facility] Co de Phone Number [facility] [address] [place] [phone] * (ABNORMAL) Ferritin (12/19/2024 12:11 PM EDT) Ferritin 6(L) 10 - 122 ng/mL [facility] Blood Venous blood specimen / Unknown 12/19/2024 12:11 PM EDT 12/19/2024 1:20 PM EDT Rebekah Napoles MD LAB BLOOD ORDERABLES Final Resul t Performing Organization Address City/[facility]/ZIP Co de Phone Number [facility] [address] [place] [phone] * Hepatitis B surface antigen, EIA (12/19/2024 12:11 PM EDT) Hepatitis B Surface Ag Negative Negative [facility] Blood Venous blood specimen / Unknown 12/19/2024 12:11 PM EDT 12/19/2024 1:20 PM EDT us Rebekah Napoles MD LAB BLOOD ORDERABLES Final Resul t Performing Organization Address City/[facility]/ZIP Co de Phone Number [facility] [address] [place] [phone] * HIV-1/2 Antigen and Antibodies, Fourth Generation, with Reflexes (12/19/2024 12:11 PM EDT) Pathologist [facility] HIV AB/AG Nonreactive Nonreactive [facility] Comment:HIV-1 p24 Ag and/or HIV-1/HIV-2 Ab not detected.A test result that is nonreactive does not exclude thepossibility of exposure to or infection with HIV-1 and/orHIV-2. Nonreactive results in this assay for individualswith prior exposure to HIV-1 and/or HIV-2 may be due toantigen and antibody levels that are below the limit ofdetection of this assay.The [employer] HIV Ag/Ab Combo assay result andsupplemental assay results should be interpreted inconjunction with the patient's clinical presentation,history and other laboratory results. If the results areinconsistent with clinical evidence, additional testing issuggested to confirm the result. Blood Venous blood specimen / Unknown 12/19/2024 12:11 PM EDT 12/19/2024 1:20 PM EDT us Rebekah Napoles MD LAB BLOOD ORDERABLES Final Resul t Performing Organization Address City/[facility]/ZIP Co de Phone Number [facility] [address] [place] [phone] * Hepatitis C Antibody with Reflex to HCV, RNA, Quantitative, Real-Time PCR (12/19/2024 12:11 PM EDT) Pathologist [facility] Hepatitis C Antibody Nonreactive Nonreactive [facility] Comment:Antibodies to HCV no t detected; does not exclude early acuteHCV infection. Blood Venous blood specimen / Unknown 12/19/2024 12:11 PM EDT 12/19/2024 1:20 PM EDT Rebekah Napoles MD LAB BLOOD ORDERABLES Final Resul t Performing Organization Address [facility]/ZIP Co de Phone Number [facility] [address] [place] [phone] * Syphilis Screen (12/19/2024 12:11 PM EDT) Pathologist [facility] Syphilis Screen Nonreactive Nonreactive [facility] Blood 12/19/2024 12:1 1 PM EDT 12/19/2024 1:27 PM EDT Rebekah Napoles MD LAB BLOOD ORDERABLES Final Resul t Performing Organization Address [facility] Co de Phone Number [facility] [address] [place] [phone] * (ABNORMAL) Hemoglobin Electrophoresis (12/19/2024 12:11 PM EDT) Pathologist [facility] RBC 5.44(A) 3.80 - 5.10 Million/u L [facility] Hemoglobin 12.4 11.7 - 15.5 g/dL [facility] Hematocrit 40.6 35.0 - 45.0 % [facility] MCV 74.6(A) 80.0 - 100.0 fL [facility] MCH 22.8(A) 27.0 - 33.0 pg [facility] RDW 16.1(A) 11.0 - 15.0 % [facility] Hemoglobin A 97.4 >96.0 % [facility] Hemoglobin A2 2.3 2.0 - 3.2 % [facility] Hemoglobin F 0.3 <2.0 % [facility] Hemoglobin S TNP [facility] Hemoglobin C TNP [facility] Hemoglobin E TNP [facility] Other Hemoglobin TNP [facility] Other Hemoglobin 2 TNP H [facility] Hgb Interpretation SEE NOTE H [facility] Comment:Microcytosis and nor mal hemoglobin pattern may be seen in irondeficiency or alpha thalassemia. If iron deficiency is corrected /ruled out but MCV remains in low range molecular testing should beconsidered for genetic counselling reasons (Modbook TestCode 49000).THIS TEST WAS PERFORMED AT:[facility] [address] [phone] SAINZ MD Blood Venous blood specimen / Unknown 12/19/2024 12:11 PM EDT 12/19/2024 1:20 PM EDT Rebekah Napoles MD LAB BLOOD ORDERABLES Final Resul t [facility] [address] [place] [address] [phone] * US Abdomen Limited (10/06/2024 1:30 PM EST) Anatomical Region Laterality Modality Abdomen Ultrasound 10/06/2024 1:30 PM EST Narrative 10/06/2024 2:35 PM EST [address] [address] Ultrasound Report Signed Patient: Verónica Starkey MR# : [id number] : 1985 Acct:[id number] Age/Sex: 39 / F ADM Date: 10/06/24 Loc: HO.ED Attending Dr: Ordering Physician: Madonna Basilio Date of Service: 10/06/24 Procedure(s): US abdomen limited Accession Number(s): [id number] cc: Madonna Basilio; Rebekah Napoles MD EXAMINATION: [...] No hydronephrosis. No ascites. Electronically signed by: Clitnon Capps MD 10/06/2024 02:25 PM [facility] Dictated By: Clinton Naranjo MD Signed By: <Electronically signed by Clinton Lopez MD in OV> 10/06/24 1425 DD/ 1330 TD/TT: 10/06/24 1400 Social Science Professor: Procedure Note Donotuseinterpreter, Image - 10/06/2024 [place] [address] Ultrasound Report Signed Patient: Verónica Starkey CMR# : [id number] : 1985Acct:[id number] Age/Sex: 39 / FADM Date: 10/06/24 Loc: HO.ED Attending Dr: Ordering Physician: Madonna Basilio Date of Service: 10/06/24 Procedure(s): US abdomen limited Accession Number(s): [id number] cc: Madonna Basilio; Rebekah Napoles MD EXAMINATION: [...] 10/06/24 1425 DD/ 1330 TD/TT: 10/06/24 1400 Social Science Professor: [facility] External Provider IMG US PROCEDURES Final Result * HCG, Qualitative, Urine (10/06/2024 11:14 AM EST) Urine NEGATIVE NEGATIVE [facility] Comment:This test was develo ped to detect early . Falsenegative results may occur after the 5th - 7th week ofpregnancy when using this test method. If clinicallyindicated, consider a serum hCG. 10/06/2024 11:1 4 AM EST 10/06/2024 11:18 AM EST Generic External Data Provider LAB URINE ORDERAB LES Final Result [facility] [place] [phone] * Urinalysis w/reflex microscopic (10/06/2024 11:14 AM EST) Color Urine Yellow [facility] Appearance Urine Clear [facility] PH 5.5 5.0 - 9.0 [facility] Glucose Urine UA Negative Negative mg/dL [facility] Urine Blood Negative Negative [facility] Specific [place] - Urine 1.020 1.005 - 1.025 [facility] Urine Protein Negative Neg-Trace mg/dL [facility] Urine Ketones Trace Negative mg/dL [facility] Nitrite Urine Negative Negative [facility] Leukocyte Esterase Urine Negative Negative [facility] 10/06/2024 11:1 4 AM EST 10/06/2024 11:18 AM EST Narrative [facility] - 10/06/2024 11:23 AM EST [id number], [employer] us Generic External Data Provider LAB URINE ORDERAB LES Final Result [facility] [address] [place] [phone] * (ABNORMAL) Comprehensive Metabolic Panel (10/06/2024 11:13 AM EST) Sodium 140 135 - 145 mmol/L [facility] Potassium 4.3 3.3 - 5.1 mmol/L [facility] Chloride 110(H) 96 - 108 mmol/L [facility] Carbon Dioxide 25 22 - 29 mmol/L [facility] Anion Gap 9(L) 12 - 20 [facility] Urea Nitrogen (BUN) 5(L) 9 - 16 mg/dL [facility] Creatinine, Serum 0.70 0.5 - 1.4 mg/dL [facility] Creatinine Clr Calc Pharmacy 125.8 [facility] Comment:Provided height and weight: 172.72 cm,87.09 kg.eGFR (calculated from the MDRD study equation) and eCrCl(calculated from the Cockcroft-Gault equation) are based ondifferent parameters and may not yield comparable results.If eCrCl result is absurd, please check patient'sheight/weight. Estimated Glomerular Filt Rate >60 [facility] Comment:Chronic Kidney Disea se: Estimated GFR < 60 mL/min/1.54n3Ghmpda Kidney Disease: Estimated GFR < 15 mL/min/1.73m2 Glucose 83 60 - 115 mg/dL [facility] Calcium 9.5 8.4 - 10.2 mg/dL [facility] Bilirubin, Total 0.3 0.0 - 1.0 mg/dL [facility] Aspartate Amino Transferase 21 5 - 31 U/L [facility] Alanine Aminotransferase 13 0 - 31 U/L [facility] Total Protein 7.9 6.5 - 8.0 g/dL [facility] Albumin Level 4.0 3.5 - 5.0 g/dL [facility] Alkaline Phosphatase 128(H) 39 - 117 U/L [facility] 10/06/2024 11:1 3 AM EST 10/06/2024 11:18 AM EST us Generic External Data Provider LAB BLOOD ORDERAB LES Final Result Performing Organization Address City/State/[facility] Co de Phone Number [facility] [address] [place] [phone] * (ABNORMAL) CBC auto differential (10/06/2024 11:13 AM EST) White Blood Count 8.0 4.8 - 10.8 X10*3/uL [facility] Red Blood Count 5.13 4.20 - 5.50 X10*6/uL [facility] Hemoglobin 11.8(L) 12.0 - 16.0 g/dl [facility] Hematocrit 38.1 37.0 - 47.0 % [facility] Mean Corpuscular Volume 74.3(L) 80.0 - 98.0 fL [facility] Mean Corpuscular Hemoglobin 23.0(L) 27.0 - 33.0 pg [facility] Mean Corpuscular HGB Conc 31.0 31.0 - 35.0 g/dl [facility] Red Cell Distribution Width 15.0 11.0 - 16.0 % [facility] Platelet Count 172 160 - 400 X10*3/uL [facility] Mean Platelet Volume 10.8 9.4 - 12.3 fL [facility] Neutrophils Percent Auto 54.3 45 - 73 % [facility] Imm Gran Pct Auto 0.1 0.0 - 0.4 % [facility] Lymphocytes Percent Auto 38.4 20 - 40 % [facility] Monocytes Percent Auto 6.5 2 - 11 % [facility] Eosinophils Percent Auto 0.5 0 - 4 % [facility] Basophils Percent Auto 0.2 0 - 2 % [facility] NRBC Pct Auto 0.0 0.0 - 0.2 /100WBC [facility] Neutrophils Absolute Auto 4.4 2.0 - 8.3 x10*3/uL [facility] Imm Gran Abs Auto 0.01 0.00 - 0.03 X10*3/uL [facility] Lymphocytes Absolute Auto 3.1 1.2 - 4.9 X10*3/uL [facility] Monocytes Absolute Auto 0.5 0.1 - 1.2 X10*3/uL [facility] Eosinophils Absolute Auto 0.0 0.0 - 0.4 X10*3/uL [facility] Basophils Absolute Auto 0.0 0.0 - 0.2 X10*3/uL [facility] NRBC Abs Auto 0.000 0.0 - 0.012 X10*3/uL [facility] 10/06/2024 11:1 3 AM EST 10/06/2024 11:18 AM EST us Generic External Data Provider LAB BLOOD ORDERAB LES Final Result [facility] [address] [place] [phone] [phone] documented in this encounter Visit Diagnoses [...] documented as of this encounter Care Teams Portable Power Tool Repairer Relationship Specialty Start Date End Date Rebekah Napoles MD [address] [place] [phone] PCP - General Family Medicine 06/06/12 documented as of this encounter
--- OUTSIDE RECORDS SUMMARY | 2025-07-27 12:35 | XMS_ITS | Encounter Summary ---
Author Organization [employer] Address [address] [facility] 7 [place] [address] Care Team Providers Care Socially Responsible Investment Adviser Name Role Phone Rebekah Napoles MD Primary Care Provider [phone] Reason for Visit * Reason Onset Date Comments Med Refill 04/16/2025 Encounter Details Date Type Department Care Team (Late st Contact Info) Description 04/16/2025 Refill [facility] [address] [place], [place] [phone] Rebekah Napoles MD [address], [place] [phone] Social History Tobacco Use Types Packs/Day Years [...] documented as of this encounter Care Teams Socially Responsible Investment Adviser Relationship Specialty Start Date End Date Rebekah Napoles MD [address] [place] [address] PCP - General Family Medicine 06/06/12 documented as of this encounter
--- OUTSIDE RECORDS SUMMARY | 2025-07-27 12:35 | XMS_ITS | Encounter Summary ---
Author Organization [employer] Address [address] [facility] [address] [place] [address] Care Team Providers Care Roll Cutter Name Role Phone Rebekah Napoles MD Primary Care Provider [phone] Reason for Visit * Reason Onset Date Comments Med Refill 12/19/2024 Encounter Details Date Type Department Care Team (Late st Contact Info) Description 12/19/2024 Refill [facility] [address] [place] [address] Nate Gill MD [address] [place] [address] Social History Tobacco Use Types Packs/Day Years [...] documented as of this encounter Care Teams Roll Cutter Relationship Specialty Start Date End Date Rebekah Napoles MD [address] [place] [address] PCP - General Family Medicine 06/06/12 documented as of this encounter
== END 2025-07-27 11:53 | disposition home or self-care (01) ==
LOC: HO.HHCX 11:52
PROVIDERS: PCP Family Medicine; Visit Provider Internal Medicine Geriatric Medicine
DX: M25.511 Pain in right shoulder (principal)
CPT/HCPCS: 73030

== ENCOUNTER → 2025-07-27 12:01 | Outpatient (BNV) | payer MEDICAID, SELFPAY | PROVIDERS: PCP Family Medicine; Visit Provider Radiology Diagnostic Radiology | DX: M25.511 Pain in right shoulder (principal) | CPT/HCPCS: 73030 ==

== ENCOUNTER 2025-07-31 11:02 | Outpatient (REF) | payer MEDICAID, SELFPAY ==
--- OUTSIDE RECORDS SUMMARY | 2025-07-31 15:07 | XMS_ITS | Continuity of Care Document ---
Author Organization [facility], [facility] [place] Address [address] [place] [address] Care Team Providers Care Area Supervisor Name Role Phone [facility] Primary Care Provider Assessment [...] - UC 1 4V right shoulder pain. micronesian speaking 2024 025 [email or web address] [facility] Office, [address], [place], [address], 07/30/2025 12:50:34 MRI, shoulder, w/o contrast [email or web address] [facility] ([facility]), [address], [place], [address], 07/30/2025 12:50:34 Medication Orders None recorded. Patient [...] a4ajBk vP9nXo QUaueC m3YtLR FvZlgJ JJ8mAn HZtai3 0r7146 AC0KlY 3qNVqu gKiQtr MwF INTERFACE [facility] [address], [place], [address], 07/30/2025 10:46:55 07/30/20 25 07/30/2025 XR, shoul fabienne, 2 or more view http:/ [email or web address] ?Encry pted=s hAaTro YD8dLq bEUv6g %2BXZw aYqtaq 0bqfl% 2Fg9IQ a4ajBk vP9nXo QUaueC m3YtLR FvZlgJ JJ8mAn HZtai3 7g7926 AC0KlY 3qNVqu gKiQtr MwF INTERFACE [place] [address], [place], [address], 07/30/2025 10:46:56 Result Notes Documentation Provider Name and Address Organization Details Recorded Time Xr, Shoulder, 2 Or More View : [email or web address] Encrypted=toKtWdvVU9rUptM Uv6g%8TXHbgDajit8qpzl%2Fg 4JKl0pbSgqM0zFjVFdvzSx8Bp GQGuZsxWPD7iOzAUpno08s437 1NL7VdQ3gRNdynTyCafLzL Not Available [facility] 07/30/2025 10:46: 56 Xr, Shoulder, 2 Or More View : [email or web address]? Encrypted=uoSvXhwDG5uHzkJ Uv6g%3JIOciTejse1jaul%2Fg 4WBd2jdDxvB5aDuZIubeYw1Dd MNWnHgbMJL6rThGTojp04z978 4BS7IbS0pIQgxvOuKrxUdA Not Available [facility] 07/30/2025 10:46: 57 Procedures Surgical History Date Name Laterality Status Provider Name and Address Organization Details Recorded Time 5 PM Shoulder Kenalog 2cc Injection Unilateral completed Justin Oshea PA-C [address], [place], [address], [facility] 07/30/2025 11:52:41 Imaging Results None recorded. Procedure Notes None recorded. Medical Equipment None Reported. Allergies Allergen ID Allergen Name Allergen Category Reaction Reaction Severity Criticality Documentation Date Start Date Code Code System Note Provider Name and Address Organization Details Recorded Time 306242 acetamino phen / oxycodone medicatio n hives Not available Not available 07/30/20252024 21593 3 RxNorm Not Available master - External [...] Updated DateTime 07/30/2025 172.72 cm 31.9 kg/m2 00171.4 g ERIN BILLY [facility] 07/30/2025 10:37:21 Social History None recorded. Functional Status None recorded. Mental Status None recorded. Family History Nothing Reported. Medical History No medical history recorded. Gynecological HistoryNo gynecological history recorded. Obstetrics History GPAL:G 0 P 0 0 0 0 Past Encounters Encounter ID Performer Location Encounter Start Date Encounter Closed Date Diagnosis/Indication Diagnosis SNOMED-CT Code Diagnosis ICD10 Code Diagnosis IMO Codes Diagnosis Note [id number] Justin Oshea PA-C [facility] [place] [address] [place] [address] 07/30/2025 10:08:15 07/30/2025 11:53:00 Pain of right shoulder region 9458550831 M25.511 [id number] Health Concerns Section Related Observation LastModified by Organization Detai ls LastModified Time None Recorded Concern Status LastModified by Organization Details LastModified Time None Recorded Payers Encounter Date Sequence Insurance Name Policy Number Policy Olea Covered Member ID Olea Member ID Guarantor Name 07/30/2025 1 [place] [facility] Verónica Burrell [id number] Verónica Garsia Notes Date Note Type Note Provider Name and Address Organization Details Recorded Time 07/30/2025 text/html I am seeing the patient today under the supervision of Dr. Tracey who was available but who did not see the patient.Diagnosis: Right shoulder impingementThis is a English-speaking 40-year-old female who presents today with a few week history of right shoulder pain. She was actually seen at [facility] x-rays were obtained she was [...] 3 to 4 weeks to review the MRI.[facility] speech recognition advertising campaign manager software was used to create portions of this document. An attempt at proofreading has been made to minimize errors. Please call for corrections. Justin Oshea PA-C [address], [place], [address], [facility] 07/30/2025 11:52:58 OBGyn Episode No OBEpisode recorded.
--- OUTSIDE RECORDS SUMMARY | 2025-07-31 15:07 | XMS_ITS | Data Portability ---
Author Organization [facility], [facility] Address [address] [place] [address] Care Team Providers Care Baffle Mounter Name Role Phone [facility] Primary Care Provider Assessment No [...] - UC 1 4V right shoulder pain. korean speaking 2024 025 [email or web address] [place] Office, [address], [facility] [address], [place], [address], 07/30/2025 12:50:34 MRI, shoulder, w/o contrast 2024 025 [email or web address] [facility] ([facility]), [address], [place], [address], 07/30/2025 12:50:34 Medication Orders None recorded. Patient [...] a4ajBk vP9nXo QUaueC m3YtLR FvZlgJ JJ8mAn HZtai3 4s8344 AC0KlY 3qNVqu gKiQtr MwF INTERFACE [facility] [address], [address], 07/30/2025 10:46:55 07/30/20 25 07/30/2025 XR, shoul fabienne, 2 or more view http:/ [email or web address] ?Encry pted=s hAaTro YD8dLq bEUv6g %2BXZw aYqtaq 0bqfl% 2Fg9IQ a4ajBk vP9nXo QUaueC m3YtLR FvZlgJ JJ8mAn HZtai3 1q3875 AC0KlY 3qNVqu gKiQtr MwF INTERFACE [facility] [address] [address], [place], [address], 07/30/2025 10:46:56 Result Notes Documentation Provider Name and Address Organization Details Recorded Time Xr, Shoulder, 2 Or More View : [email or web address] Encrypted=ziIvYwfIT5oVgiG Uv6g%2YYUlqYzlrp8ejiu%2Fg 0TMx2hhOugV1fFyCNaolSc3Gu LUNdMolNTJ8wPdGQnde76c614 9VO5ImK8dKQbriTqFtbFfX Not Available [facility] 07/30/2025 10:46: 56 Xr, Shoulder, 2 Or More View : [email or web address]? Encrypted=xkPcTydLY8jFqmF Uv6g%2RTGxoRltoq2bsrb%2Fg 2GCk7qoKkfV0lSpHAbfuYv3Mo WMRmTtfQWR2uIoZHctv58g133 5UA2DmC0fNHgzvXmZmqDuD Not Available [facility] 07/30/2025 10:46: 57 Procedures Surgical History Date Name Laterality Status Provider Name and Address Organization Details Recorded Time 5 PM Shoulder Kenalog 2cc Injection Unilateral completed Justin Oshea PA-C [address], [place], [address], [facility] 07/30/2025 11:52:41 Imaging Results None recorded. Procedure Notes None recorded. Medical Equipment None Reported. Allergies Allergen ID Allergen Name Allergen Category Reaction Reaction Severity Criticality Documentation Date Start Date Code Code System Note Provider Name and Address Organization Details Recorded Time 259552 acetamino phen / oxycodone medicatio n hives Not available Not available 07/30/20252024 35936 3 RxNorm Not Available [employer] - External Data Service - prod 5 [...] Updated DateTime 07/30/2025 172.72 cm 31.9 kg/m2 32247.4 g ERIN BILLY [facility] 07/30/2025 10:37:21 Social History None recorded. Functional Status None recorded. Mental Status None recorded. Family History Nothing Reported. Medical History No medical history recorded. Gynecological HistoryNo gynecological history recorded. Obstetrics History GPAL:G 0 P 0 0 0 0 Past Encounters Encounter ID Performer Location Encounter Start Date Encounter Closed Date Diagnosis/Indication Diagnosis SNOMED-CT Code Diagnosis ICD10 Code Diagnosis IMO Codes Diagnosis Note [id number] Justin Oshea PA-C [facility] [place] [address] [place] [address] 07/30/2025 10:08:15 07/30/2025 11:53:00 Pain of right shoulder region [id number] M25.511 14141630 Health Concerns Section Related Observation LastModified by Organization Detai ls LastModified Time None Recorded Concern Status LastModified by Organization Details LastModified Time None Recorded Advance Directives Directive None Recorded Payers Insurance Date Sequence Insurance Name Policy Number Policy Olea Covered Member ID Olea Member ID Guarantor Name 07/30/2025 1 [place]: [facility] Verónica Burrell [id number] Verónica Garsia Notes Date Note Type Note Provider Name and Address Organization Details Recorded Time 07/30/2025 text/html I am seeing the patient today under the supervision of Dr. Tracey who was available but who did not see the patient.Diagnosis: Right shoulder impingementThis is a Serbian-speaking 40-year-old female who presents today with a few week history of right shoulder pain. She was actually seen at [facility] x-rays were obtained she was told she [...] 3 to 4 weeks to review the MRI.[facility] speech recognition contractor buyer software was used to create portions of this document. An attempt at proofreading has been made to minimize errors. Please call for corrections. Justin Oshea PA-C [address], [place], [address], [facility] - [place] [facility] 07/30/2025 11:52:58 OBGyn Episode No OBEpisode recorded.
== END 2025-07-31 11:03 | disposition home or self-care (01) ==
LOC: HO.LNP 11:02
PROVIDERS: PCP Family Medicine; Visit Provider Nurse Practitioner Family
DX: N28.1 Cyst of kidney, acquired (principal); R31.29 Other microscopic hematuria
CPT/HCPCS: 81003; 88112; 99212

== ENCOUNTER 2025-07-31 11:02 | Outpatient (AMB) | payer MEDICAID, SELFPAY ==
--- OUTSIDE RECORDS SUMMARY | 2025-07-27 11:20 | XMS_ITS | Encounter Summary ---
Author Organization [employer] Address [address] [facility] 7 [place] [address] Care Team Providers Care Market Development Trainer Name Role Phone Rebekah Napoles MD Primary Care Provider [phone] Reason for Referral * Consultation (Routine) - Authorized Specialty Diagnoses / Procedures Referred By Tyler diaz Referred To Contact Orthopaedic Surgery Diagnoses Acute pain of right shoulder Thomas Vernon MD [address] [place] [address] Phone: tel: fax: [facility] [address] [place] [address] Dr [address] [place] [address] Phone: tel: Referral ID Status Reason Start Date Expiration Date Visits Requested Visits Authorized [id number] Authorized Specialty Services Required 5 07/27/2026 6 6 Reason for Visit * Reason Comments Right shoulder pain Encounter Details Date Type Department Care Team (Late st Contact Info) Description 07/27/2025 11:20 AM EST Office Visit [facility] [address] [place] [phone] [phone] Thomas Vernon MD [address] [place] [address] [phone] Acute pain of right shoulder (Primary Dx) Social History Tobacco Use Types Packs/Day Years [...] AM EDT documented as of this encounter Last Filed Vital Signs Vital Sign Reading Time Taken Comments Blood Pressure 140/88 07/27/2025 11:32 AM EST Pulse 86 07/27/2025 11:32 AM EST Temperature 36.7 C (98 F) 07/27/2025 11:32 AM EST Respiratory Rate 15 07/27/2025 11:32 AM EST Oxygen Saturation 97% 07/27/2025 11:32 AM EST Inhaled Oxygen Concentration - - Weight 97.1 kg (214 lb 2 oz) 07/27/2025 11:32 AM EST Height - - Body Mass Index 32.56 01/15/2025 4:07 PM EDT documented in this encounter Progress Notes * Thomas Vernon MD - 07/27/2025 11:20 AM EST Subjective Patient ID: Verónica Garsia is a 40 y.o. female who presents for Right shoulder pain. Patient comes for a sick visit complaining of severe right shoulder pain. She does not have any recent history of trauma. The patient has been unable to move the right shoulder because of the pain. She told me she had the same symptoms about 3 weeks ago and she improved with the use of [id number] NSAIDs. She does not have any fevers or chills. No similar joint pains elsewhere. She explains to me that she had a right clavicle fracture as an infant and she wonders if this is the cause of her her current symptoms. Review of Systems Constitutional: Negative for chills and fever. HENT: Negative for sore throat. Respiratory: Negative for cough, shortness of breath and wheezing. Cardiovascular: Negative for chest pain, palpitations and leg swelling. Gastrointestinal: Negative for abdominal pain. Musculoskeletal: See HPI Objective Vitals: 07/27/25 1132 BP: (!) 140/88 BP Location: Left arm Patient Position: Sitting BP Cuff Size: Adult Pulse: 86 Resp: 15 Temp: 98 ??F (36.7 ??C) TempSrc: Oral SpO2: 97% Weight: 214 lb 2 oz (97.1 kg) Physical Exam Constitutional: General: She is in acute distress. Cardiovascular: Rate and Rhythm: Normal rate and regular rhythm. Pulmonary: Effort: Pulmonary effort is normal. No respiratory distress. Musculoskeletal: Right shoulder: Tenderness present. Decreased range of motion. Left shoulder: Normal. Comments: Patient was unable to take off her jacket because of the pain Assessment/Plan Diagnoses and all orders for this visit: Acute pain of right shoulder Comments: Shoulder DJD? Rotator cuff tendinopathy? Shoulder bursitis?Patient is recommended referral to research quality assurance specialist, evaluation with x-ray of the right shoulder prior to research quality assurance specialist evaluation, I prescribed a course of meloxicam for the pain. Orders: - XR Shoulder 2+ Views Right; Future - Referral to Orthopaedic Surgery; Future Other orders - meloxicam (Mobic) 7.5 MG tablet; Take 1 tablet (7.5 mg) by mouth Once per day. documented in this encounter Plan of Treatment Scheduled Referrals Name Type Priority Associated Diagnoses Order Schedule Referral to Orthopaedic Surgery Outpatient Referral Routine Acute pain of right shoulder Expected: 07/27/2025 (Approximate), Expires: 07/27/2026 documented as of this encounter Procedures Procedure Name Priority Date/Time Associated Diagnosis Comments XR SHOULDER 2+ VIEWS RIGHT Routine 07/27/2025 12:29 PM EST Acute pain of right shoulder documented in this encounter Results * XR Shoulder 2+ Views Right (07/27/2025 12:29 PM EST) Anatomical Region Laterality Modality Upper Extremities, Shoulder Right Radi ographic Imaging 07/27/2025 12:2 9 PM EST Narrative 07/27/2025 12:45 PM EST [address] [address] XRay Report Signed Patient: Verónica Starkey MR# : [id number] : 1985 Acct:[id number] Age/Sex: 40 / F ADM Date: 07/27/25 Loc: HO.HHCX Attending Dr: Thomas Vernon MD Ordering Physician: Thomas Vernon MD Date of Service: 07/27/25 Procedure(s): XR shoulder RT min 2V Accession Number(s): [id number] cc: Thomas Vernon MD; Rebekah Napoles MD Reason for Exam: PAIN EXAMINATION: XR SHOULDER, RIGHT CLINICAL INFORMATION: PAIN COMPARISON: None available. TECHNIQUE: Three views of the right shoulder. FINDINGS: Normal bone mineralization. No fracture, dislocation, or suspicious bone lesion. Normal alignment. The glenohumeral joint is normal. The AC joint is normal. There is a type II acromion. No undersurface spurring. The subacromial space is preserved. Remainder of the soft tissue and bony structures appear normal. XR/XR shoulder RT min 2V IMPRESSION: Normal right shoulder. Electronically signed by: Santiago Diaz MD 07/27/2025 12:42 PM EST RP Dictated By: Santiago Diaz MD Signed By: <Electronically signed by Santiago Diaz MD in OV> 07/27/25 1242 DD/ 1229 TD/TT: 07/27/25 1231 Sexton Helper: Procedure Note Donotemeryinterpreter, Image - 07/27/[address] [address] XRay Report Signed Patient: Verónica Starkey CMR# : [id number] : 1985Acct:[id number] Age/Sex: 40 / FADM Date: 07/27/25 Loc: HO.HHCX Attending Dr: Thomas Vernon MD Ordering Physician: Thomas Vernon MD Date of Service: 07/27/25 Procedure(s): XR shoulder RT min 2V Accession Number(s): [id number] cc: Thomas Vernon MD; Rebekah Napoles MD Reason for Exam: PAIN EXAMINATION: XR SHOULDER, RIGHT CLINICAL INFORMATION: PAIN COMPARISON: None available. TECHNIQUE: Three views of the right shoulder. FINDINGS: Normal bone mineralization. No fracture, dislocation, or suspicious bone lesion. Normal alignment. The glenohumeral joint is normal. The AC joint is normal. There is a type II acromion. No undersurface spurring. The subacromial space is preserved. Remainder of the soft tissue and bony structures appear normal. XR/XR shoulder RT min 2V IMPRESSION: Normal right shoulder. Electronically signed by: Santiago Diaz MD 07/27/2025 12:42 PM EST RP Dictated By: Santiago Diaz MD Signed By: <Electronically signed by Santiago Diaz MD in OV> 07/27/25 1242 DD/ 1229 TD/TT: 07/27/25 1231 Sexton Helper: Thomas Vernon MD IMG XR PROCEDURES Final Result documented in this encounter Visit Diagnoses Diagnosis Acute pain of right shoulder- Primary documented in this encounter Additional Health Concerns Assessment Noted Time PHQ-9 Depression Total Score: 6 01/17/20 25 9:06 AM EDT documented as of this encounter Care Teams Market Development Trainer Relationship Specialty Start Date End Date Rebekah Napoles MD [address] [place] [address] PCP - General Family Medicine 06/06/12 documented as of this encounter
--- OUTSIDE RECORDS SUMMARY | 2025-07-29 04:47 | XMS_ITS | Continuity of Care Document ---
Author Organization [facility] ter Address [address] [place] [id number]- Care Team Providers Care Wildlife Conservation Officer Name Role Phone Dony MCDONALD, Rebekah Primary Care Physician Encounter [facility] Date(s): 07/29/25 - 07/29/[address] [address]- Discharge Disposition: A-D/C Walkout Attending Physician: Not on Staff, Attending MD Admitting Physician: Not on Staff, Admitting MD Referring Physician: Not on Staff, Referring MD Encounter Type: Disch ES Allergies, Adverse Reactions, Alerts No Known Allergies Medications acetaminophen 325 mg oral tablet 650 mg, 2, tablet, By Mouth, Every 6 hours, PRN, not to exceed 4000 mg/day, # 12 tablet, Refills 0,Tot. Refills 0, Maintenance, as needed for pain, 01/13/18 3:57:00 AM EDT, Print Requisition Start Date: 01/13/18 Status: Ordered Medication Dispense Status: Completed Quantity: 12.0 Unit: tablet Total Allowed Fills: 1 Fills Dispensed: 0 Albuterol = 2.5 mg, Inhalation, 3 times a day, 0 Refills, Maintenance, 06/11/15 11:22:15 AM EDT Start Date: 06/11/15 Status: Ordered Medication Dispense Status: Completed Total Allowed Fills: 1 Fills Dispensed: 0 Flonase 50 mcg/inh nasal spray 1 sprays, Nares, Both, 2 times a day, # 16 Gm, 0 Refills, Maintenance, 06/11/15 11:16:54 AM EDT, [place] Start Date: 06/11/15 Status: Ordered Medication Dispense Status: Completed Quantity: 16.0 Unit: g Total Allowed Fills: 1 Fills Dispensed: 0 Flovent 110 mcg Inhaler HFA 1, puffs, Inhalation, 2 times a day, Maintenance, 06/11/15 11:23:01 AM EDT Start Date: 06/11/15 Status: Ordered Medication Dispense Status: Completed Total Allowed Fills: 1 Fills Dispensed: 0 ibuprofen 600 mg oral tablet 600 mg, 1, tablet, By Mouth, Every 6 hours, # 30 tablet, Refills 0, Tot. Refills 0, Maintenance, 08/17/19 6:48:29 PM EST, Print Requisition Start Date: 08/17/19 Status: Ordered Medication Dispense Status: Completed Quantity: 30.0 Unit: tablet Total Allowed Fills: 1 Fills Dispensed: 0 Slynd 4 mg oral tablet 1 tablet = 4 mg, By Mouth, Daily, # 84 tablet, 0 Refills, Maintenance, 06/26/25 3:04:00 PM EDT, Tablet, [id number], Partial fill upon patient request if the prescription is for a schedule II opioid drug., 155, cm, 06/26/25 14:29:00 EDT, Height Start Date: 06/26/25 Status: Ordered Medication Dispense Status: Completed Quantity: 84.0 Unit: tablet Total Allowed Fills: 1 Fills Dispensed: 0 Mental Status Mental Status Assessment Assessment Assessment Component Result Effecti ve Date Scammon coma score total 15 Problem List Condition Confirmation Course Effective Dates Status Health St atus Informant Obese class I Confirmed Active Vital Signs Most recent to oldest [Reference Range]: 1 2 Height 173 cm (07/29/25 3:30 AM) 173 cm (07/29/25 3:28 AM) Weight 95.0 kg (07/29/25 3:30 AM) 95.0 kg (07/29/25 3:28 AM) Oxygen Saturation [94-100 %] 100 % (07/29/25 3:28 AM) 100 % (07/29/25 3:24 AM) Pulse Rate [55-90 bpm] 84 bpm (07/29/25 3:28 AM) 99 bpm *H* (07/29/25 3:24 AM) Body Mass Index [18.5-24.99 kg/m2] 31.74 kg/m2 *H* (07/29/25 3:28 AM) Blood Pressure [90-138/55-84 mm Hg] 120/ 88mm Hg (07/29/25 3:28 AM) Respiratory Rate [16-30 br/min] 16 br/mi n (07/29/25 3:28 AM) 16 br/min (07/29/25 3:24 AM) Temperature [96.8-100.4 DegF] 97.8 DegF (07/29/25 3:28 AM) Mode of Delivery (Oxygen) Room air (07/29/25 3:28 AM) Room air (07/29/25 3:24 AM) Blood pressure sites Arm, left (07/29/25 3:28 AM) Temperature Route Oral (07/29/25 3:28 AM) Weight Obtained Via Patient/family state d (07/29/25 3:28 AM) Social History Social History Type Response Sex Female Sex Representation Female (finding) Status Not Patient Care team information Care Team Personnel Name: Sherrie DOUGLAS, Phyllis Juarez Position: [facility] PCO Associate Professional Member Role: Lifetime Consulting Provider Address: [address] [place] [address], [place] [address] Telecom: Name: Rimma Yung Position: [facility] Outreach Member Role: Lifetime Consulting Physician Name: Rebekah Napoles MD Position: [facility] Outreach Member Role: PCP Address: [address] [place] [address] [id number] Telecom: Care Team Related Persons Name: ASHELY PERDOMO Name: RAUL CARTER Insurance Providers Guarantor name: KAHLIL DE DIOS [facility] Plan Information #: 1 Payer: [employer] Payer Identifier: [place] Member Number: [id number] Group Number: [id number] Subscriber Identifier: [id number] Relationship to Subscriber: self Coverage Type: Self-pay (Includes applicants for insurance and Medicaid applicants) Coverage Verification Date: [place] Telecom: NA Address: NA
--- OUTSIDE RECORDS SUMMARY | 2025-07-29 05:15 | XMS_ITS | Encounter Summary ---
Author Organization [facility] Address [address] [place] [id number] Phone Care Team Providers Care Bilingual Teacher Assistant Name Role Phone Rebekah Napoles MD Primary Care Provider Reason for Visit * Reason Comments Shoulder Pain Encounter Details Date Type Department Care Team (Late st Contact Info) Description 07/29/2025 5:15 AM EST - 07/29/2025 11:17 AM EST Emergency [facility] [address] [place] [address] Discharge Disposition: Home or Self Care Social History Tobacco Use Types Packs/Day Years Used Date Smoking Tobacco: Never Assessed Education Answer Date Recorded Are you interested in more education? Not on karis e 07/29/2025 Are you concerned about learning? Not on file 07/29/2025 No 07/29/2025 No 07/29/2025 Digital Access Answer Date Recorded No 07/29/2025 No 07/29/2025 Reliable internet access at home? Not on file 07/29/2025 Device with a working camera? Not on file Intimate Partner Violence Answer Date R ecorded Are you denied basic needs s uch as food, clothing, or medical care? No 07/29/2025 In the past 12 months have y ou been in a relationship with a person who hurts, threatens, or tries to control you? No 07/29/2025 Are you denied basic needs s uch as food, clothing, or medical care? No 07/29/2025 In the past 12 months have y ou been in a relationship with a person who hurts, threatens, or tries to control you? No 07/29/2025 Comments Unknown Sex and Gender Information Value Date Recorded Sex Assigned at Female 07/29/2025 5:16 AM EST Legal Sex Female 5:02 AM EST Gender Identity Female 07/29/2025 5:16 AM EST Sexual Orientation Straight 07/29/2025 5: 16 AM EST documented as of this encounter Last Filed Vital Signs Vital Sign Reading Time Taken Comments Blood Pressure 112/56 07/29/2025 11:06 AM EST Pulse 79 07/29/2025 11:06 AM EST Temperature 36.2 C (97.2 F) 07/29/2025 11:06 AM EST Respiratory Rate 14 07/29/2025 11:06 AM EST Oxygen Saturation 99% 07/29/2025 11:06 AM EST Inhaled Oxygen Concentration - - Weight - - Height - - Body Mass Index - - documented in this encounter Functional Status * Calculated C-SSRS Risk Score (Lifetime/Recent) Answer Date of Assessment Author No Risk Indicated 07/29/2025 5:09 AM EST Marisabel Lopez RN * [place] Suicide Severity Rating Scale (Screener/Recent Self-Report) Question Answer Date of Assessment Author 1. Wish to be (Past 1 Month) No 07/29/2025 5:09 AM EST Sergio Lopez RN 2. Non-Specific Active Suicidal Thoughts (Past 1 Month) No 07/29/2025 5:09 AM EST Sergio Lopez RN 6. Suicidal Behavior (Lifetime) No 07/29/2025 5:09 AM EST Sergio Lopez RN documented as of this encounter Discharge Instructions * Discharge Instructions* Freda Cabrera PA-C - 07/29/2025 10:00 AM EST You were seen in the ED today for severe right shoulder pain. An x-ray was taken without evidence of fracture however signs of calcified tendinitis which is likely contributing to a frozen shoulder syndrome due to lack of mobility. It is important you continue to move the shoulder is much as possible against passive range of motion. Use ibuprofen 800 mg every 6 hours for pain and anti-inflammatory use Tylenol with as milligrams every 6 hours as needed for pain. Use Morphine for severe pain control every 6 hrs use heat over the shoulder to help with discomfort. Follow-up with the orthopedic clinic in the next 1 to 2 days for further management and diagnostics. Use sling for comfort. documented in this encounter Medications at Time of Discharge morphine (MSIR) 15 MG tablet Take 1 tablet (15 mg total) by mouth every 6 (six) hours as needed for pain (specific location in comments). Partial fill ok 12 tablet 07/29/2025 08/01/2025 documented as of this encounter ED Notes * Viji Vick RN - 07/29/2025 6:32 AM EST ED Nursing Progress Note Pt reports 10/10 R shoulder pain. Pt tearful and standing up in room. Pt offered tylenol and ibuprofen. Pt denies both at this time. Pt provided with heat packs, report there was no relief. * Viji Vick RN - 07/29/2025 6:06 AM EST ED Nursing Progress Note Pt provided with heat packs for R shoulder pain. * Marisabel Lopez RN - 07/29/2025 5:06 AM EST Pt presents to the ED with 1 week of right shoulder pain. Was seen at [facility] ED last week and medications aren't helping. Pt reports inability to lift her arm. Pt aox4, appears uncomfortable. 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 * Freda Cabrera PA-C - 07/29/2025 5:02 AM EST Chief Complaint Chief Complaint Patient presents with Shoulder Pain History of Present Illness The patient, Verónica Garsia,is a 40 y.o. female who presents for evaluation of Shoulder Pain History of Present Illness This is a 40-year-old female presenting with shoulder pain. The patient reports experiencing shoulder pain for approximately one month, which has progressivelyworsened over the past week. The pain is located in the shoulder and is described as severe, makingmovement difficult. She has been using lower splints for her back and suspects that the shoulder pain may be related to this. She has been managing the pain with meloxicam. The patient has a known allergy to Percocet, which causes itching and requires an injection for relief. She prefers intravenous medication as oral medications have not provided sufficient relief. The patient reports no chest pain or trouble breathing currently, although she did experience chestpain this morning. She reports no gastrointestinal symptoms such as nausea or diarrhea. She confirms that she is not and reports no abnormal vaginal bleeding or discharge. Additionally, she reports no abdominal pain, numbness, tingling, or burning sensation in the buttock area. Unless otherwise specified, I have reviewed and agree with the triage and nursing notes. ROS A ten point review of systems was negative except what was noted in the HPI. Review of Systems Past Medical History No past medical history on file. Past Surgical History No past surgical history on file. Home Medications Prior to Admission medications Medication Sig morphine (MSIR) 15 MG tablet 15 mg, Oral, Every 6 hours PRN, Partial fill ok Allergies Allergies Allergen Reactions Percocet [Oxycodone-Acetaminophen] Social and Family History Social History Tobacco Use Smoking status: Not on file Smokeless tobacco: Not on file Substance Use Topics Alcohol use: Not on file Social History Substance and Sexual Activity Drug Use Not on file No family history on file. Physical Exam Vital Signs: ED Triage Vitals [07/29/25 0509] Encounter Vitals Group BP 135/70 Girls Systolic BP Percentile Girls Diastolic BP Percentile Boys Systolic BP Percentile Boys Diastolic BP Percentile Heart Rate 100 Respiratory Rate 18 Temperature 36.9 ??C (98.5 ??F) Temp src SpO2 96 % Weight Height Head Circumference Peak Flow Pain Score Pain Loc Pain Education Exclude from Growth Chart Physical Exam Vitals and nursing note reviewed. Constitutional: Appearance: Normal appearance. HENT: Head: Normocephalic and atraumatic. Right Ear: External ear normal. Left Ear: External ear normal. Nose: Nose normal. Mouth/Throat: Mouth: Mucous membranes are moist. Pharynx: Oropharynx is clear. Eyes: Pupils: Pupils are equal, round, and reactive to light. Cardiovascular: Rate and Rhythm: Normal rate. Pulmonary: Effort: Pulmonary effort is normal. Musculoskeletal: Cervical back: Normal range of motion and neck supple. Comments: Limited range of motion right shoulder due to pain good distal pulse good cap refill compartments soft good range of motion of right elbow right wrist right metacarpals. Tenderness palpation over the right posterior scapula and right proximal lateral humerus. No overlying skin changes or crepitus noted. Skin: General: Skin is warm and dry. Neurological: General: No focal deficit present. Mental Status: She is alert and oriented to person, place, and time. Psychiatric: Mood and Affect: Mood normal. Behavior: Behavior normal. Laboratory Testing Results for orders placed or performed during the hospital encounter of 07/29/25 ECG 12-LEAD Result Value Ref Range Ventricular Rate EKG/MIN 86 BPM Atrial Rate 86 BPM AR Interval 140 ms QRS Duration 76 ms QT Interval 358 ms QTC Interval 428 ms P Melissa 37 degrees R Wave Melissa 1 degrees T Wave Melissa 37 degrees Radiology Testing XR Shoulder (Right) Final Result No fracture or dislocation. Medication from 07/29/2025 0502 to 07/29/2025 1741 Date/Time Order Dose Route Action Action by Comments 07/29/2025 0823 EST ketorolac (TORADOL) injection 15 mg 15 mg Intravenous Given Marisabel Hdz RN -- 07/29/2025 1026 EST morphine (MSIR) tablet 15 mg 15 mg Oral Given Marisabel Hdz RN -- [facility] Assessment & Plan Initial Assessment: Patient presents with severe shoulder pain radiating to the shoulder and buttock area. Pain has been ongoing for about a week, with no history of injury. Differential Diagnosis: - Tendinitis: Radiating pain. Plan: Repeat x-ray, pain management. - Fracture: Previous x-ray showed no major findings. Plan: Repeat x-ray. - Biceps tendon involvement: Radiating pain, potential for frozen shoulder. Plan: Repeat x-ray, pain management Attestation: Freda Cantu PA-C, have seen this patient independently. This is a PA only visit Category 1: Tests, Studies or Independent Historians: Independent Historian: Independent history was obtained by family/guardian. Radio Equipment Repairer: A emergency medical services coordinator was used during this visit. Category 2 and 3: Independent Interpretation of Tests, Consideration of Tests, or External Discussion of Results: Radiology: Radiology studies were independently interpreted. Calcified right biceps tendon no fractures or dislocations noted. ECG: EKG studies were independently interpreted. Rate: 86 Rhythm: sinus rhythm T Wave Inversions: No ST Depressions: No ST Elevations: No Risks of Complications, Morbidity, or Mortality: Risks: Risks and benefits of admission to the hospital discussed with patient. Necessity for prescription medication was discussed. A medication was administered that required monitoring. ED Course as of 07/29/251740 Sun Jul 29, 2025 0949 COMPARISON: None. FINDINGS: No fracture. Normal glenohumeral alignment and joint space. Normal acromioclavicular joint. Calcifications adjacent to the greater tuberosity likely representing calcific tendinosis. X-rays consistent with calcified tendinosis raising suspicion for frozen shoulder due to lack of movement. EKG reassuring. Will continue to attempt pain control and continue to monitor-Toradol was helpful but will prescribe oral morphine for more severe pain control. Patient will not be driving Yaquelin expressed importance of not doing this. [KS] ED Course User Index [KS] Freda Cabrera PA-C Clinical Impressions as of 07/29/251740 Tendinitis Adhesive capsulitis of right shoulder Shoulder pain Clinical Impression Diagnosis Description Comment Final diagnoses Tendinitis Tendinitis -- Adhesive capsulitis of right shoulder Adhesive capsulitis of right shoulder -- Shoulder pain Shoulder pain -- Disposition: Home Freda Cabrera PA-C 07/29/251740 documented in this encounter Plan of Treatment Not on file documented as of this encounter Procedures Procedure Name Priority Date/Time Associated Diagnosis Comments ECG 12-LEAD STAT 07/29/2025 8:46 AM EST XR SHOULDER 2 VIEWS (RIGHT) Routine 07/29/2025 8:38 AM EST documented in this encounter Results * ECG 12-LEAD (07/29/2025 8:46 AM EST) Ventricular Rate EKG/MIN 86 BPM [facility] Atrial Rate 86 BPM [facility] AR Interval 140 ms [facility] QRS Duration 76 ms [facility] QT Interval 358 ms [facility] QTC Interval 428 ms [facility] P Melissa 37 degrees [facility] R Wave Melissa 1 degrees [facility] T Wave Melissa 37 degrees [facility] 07/29/2025 8:46 AM EST 07/29/2025 10:06 AM EST Narrative [facility] - 07/29/2025 10:06 AM EST Normal sinus rhythm Possible Left atrial enlargement Low voltage QRS Inferior infarct , age undetermined Cannot rule out Anterior infarct , age undetermined Abnormal ECG No previous ECGs available Confirmed by Bahman Iverson ([id number]) on 07/29/2025 10:06:17 AM us Freda Cabrera PA-C ECG ORDERABLES Final Result [facility] * XR SHOULDER 2 VIEWS (RIGHT) (07/29/2025 8:38 AM EST) Anatomical Region Laterality Modality Shoulder Right Computed Radiogr aphy 07/29/2025 9:43 AM EST Impressions 07/29/2025 9:43 AM EST No fracture or dislocation. Narrative 07/29/2025 9:43 AM EST XR SHOULDER 2 OR MORE VIEWS (RIGHT) Referring clinician's provided indication for this examination in Epic: S/P Fall COMPARISON: None. FINDINGS: No fracture. Normal glenohumeral alignment and joint space. Normal acromioclavicular joint. Calcifications adjacent to the greater tuberosity likely representing calcific tendinosis. Procedure Note Li Todd MD - 07/29/2025 XR SHOULDER 2 OR MORE VIEWS (RIGHT) Referring clinician's provided indication for this examination in Epic:S/P Fall COMPARISON: None. FINDINGS: No fracture. Normal glenohumeral alignment and joint space. Normalacromioclavicular joint. Calcifications adjacent to the greater tuberositylikely representing calcific tendinosis. IMPRESSION: No fracture or dislocation. Freda Cabrera PA-C IMG XR UPPER EXTREMIT Y Final Result documented in this encounter Visit Diagnoses Diagnosis Tendinitis- Primary Enthesopathy of unspecified site Adhesive capsulitis of right shoulder Shoulder pain Pain in joint, shoulder region documented in this encounter Administered Medications Inactive Administered Medications - up to 3 most recent administrations Medication Order MAR Action Action Date Dose Rate Site ketorolac (TORADOL) injection 15 mg 15 mg, Intravenous, Once, On 07/29/25 at 0830, For 1 dose Given 07/29/2025 8:23 AM EST 15 mg morphine (MSIR) tablet 15 mg 15 mg, Oral, Once, On 07/29/25 at 1015, For 1 dose Given 07/29/2025 10:26 AM EST 15 mg sodium chloride (NS) 0.9 % syringe flush 3 mL 3 mL, Intravenous, As needed, line care, Starting on 07/29/25 at 0822, Per Institutional IV Line Care Policy. documented in this encounter Active and Recently Administered Medications Times are shown in EST. Scheduled Medication Order 07/27/2025 07/28/2025 07/29/2025 ketorolac (TORADOL) injection 15 mg (COMPLETED) 15 mg, Intravenous, Once, On 07/29/25 at 0830, For 1 dose 0823 (Given - Provid er: Marisabel Hdz RN) morphine (MSIR) tablet 15 mg (COMPLETED) 15 mg, Oral, Once, On 07/29/25 at 1015, For 1 dose 1026 (Given - Provid er: Marisabel Hdz RN) PRN Medication Order 07/27/2025 07/28/2025 07/29/2025 sodium chloride (NS) 0.9 % syringe flush 3 mL 3 mL, Intravenous, As needed, line care, Starting on 07/29/25 at 0822, Per Institutional IV Line Care Policy. documented in this encounter Care Teams Bilingual Teacher Assistant Relationship Specialty Start Date End Date Rebekah Napoles MD [address] [place] [id number] PCP - General Family Medicine 07/29/25 documented as of this encounter Additional Source Comments The information contained in this document represents components of the legal health record. It is not the complete legal health record.[facility]
--- NOTE | 2025-07-31 11:09 | A.OFFVIS_ITS ---
Intake Visit Reasons: 3m/MRI Intake Note: Patient is present for 3M/MRI Urology Medication:NONE Antibiotic Allergy:NONE Blood Thinner:NONE Senior Manager Asset Protection Required: No Senior Manager Asset Protection Services: Senior Manager Asset Protection Present Senior Manager Asset Protection Name: Albert [id number] Allergies oxycodone Adverse Reaction (Verified 07/31/25 11:45) Hives Medication List - Last Reconciled 07/31/25 by KEVIN Barlow No Known Home Meds HPI Comments Details: Verónica is a 40-year-old Indonesian-speaking female patient of Dr. Napoles. She has a past medical history of iron deficiency anemia. She presents to the office today for follow-up. Of note, patient was seen approximately 3 months ago as a new patient for right renal lesion at which time a MRI renal mass protocol was ordered for further assessment evaluation. These results were reviewed and communicated with the patient today. 07/31 to right renal cysts, largest measuring 2.4 cm with thin nonenhancing septations and a 1 cm simple cysts. No renal masses or hydronephrosis noted bilaterally. There are 3 liver lesions compatible with benign hemangiomas. Gallstones are noted. Patient does report a previous history of following up with a bodywork therapist in the past through [facility] for her longstanding history of renal cysts. She denies any bothersome urinary issues. In office urinalysis results reviewed with the patient today. She denies urinary urgency, urinary frequency, incontinence, nocturia, hematuria, dysuria, foul smelling urine, changes to urinary stream, flank pain, fever, and or chills. She is happy with her current voiding parameters. All questions were answered to the best of my ability. We did discuss following up with PCP marcia herrera findings of gallstones as well as hemangiomas to further assess potential referral to gastroenterology. All questions were answered. She otherwise offers no other issues or concerns at this time. [facility] Medical History Nipple discharge Folate deficiency Heavy menses Asthma Surgical History H/O abdominoplasty (~2016) Hx of tubal ligation (~2003) Family History Maternal Grandmother Throat cancer Eye cancer Paternal Grandmother Cancer Maternal Aunt Cancer Social History Household Members: None Housing: Apartment Alcohol intake: never Patient Tobacco Use Status: Current everyday Tobacco user Tobacco use type: Cigarette service: No Current occupational status: employed Review of Systems Const All systems reviewed & are unremarkable except as noted in HPI and below Physical Exam Const General: cooperative, healthy appearing, comfortable, no acute distress, well developed, alert and awake Orientation/consciousness: patient oriented x3 Limitations: language barrier HEENT Head: Yes normal to inspection, Yes normocephalic and Yes atraumatic Ears: hearing grossly normal bilaterally Eyes General: appearance normal, both eyes and all related structures Neck Neck: Yes normal visual inspection and Yes trachea midline Chest Chest palpation & inspection: normal inspection of the chest Resp Effort & Inspection: normal respiratory effort and able to speak in complete sentences Cardio Rate: regular rate GI Inspection: Yes normal to inspection General: Yes no CVA tenderness Back/Spine/Pelvis Back: no CVA tenderness Skin General skin exam: no rashes or lesions noted Neuro General: patient oriented x3 Extrem Other: Right arm in sling General: Yes normal to inspection Psych Appearance: grossly normal and well kempt Mental Status: mental status grossly normal Speech and movement: Normal speech and movement present and Clear speech present Affect: normal affect Attitude: cooperative Thought process: Normal thought process present Thought content: Normal thought content present Insight: Fair insight present (Psych) Judgement: Fair judgement present (Psych) Results AMB Urinalysis, Automated UA Leukoctes 0 Cornel/uL Last Edit by RAQUEL Levine on 07/31/25 11:29 UA Nitrite Negative Last Edit by RAQUEL Levine on 07/31/25 11:29 UA Urobilinogen 0.2 mg/dL Last Edit by RAQUEL Levine on 07/31/25 11:2 9 UA Protein 30 mg/dL Last Edit by RAQUEL Levine on 07/31/25 11:29 UA pH 6.0 Last Edit by RAQUEL Levine on 07/31/25 11:29 UA Blood 25 Armaan/uL Last Edit by RAQUEL Levine on 07/31/25 11:29 UA Specific Sibley 1.030 Last Edit by RAQUEL Levine on 07/31/25 11: 29 UA Ketone Negative Last Edit by RAQUEL Levine on 07/31/25 11:29 UA Bilirubin 0 mg/dL Last Edit by RAQUEL Levine on 07/31/25 11:29 UA Glucose 0 mg/dL Last Edit by RAQUEL Levine on 07/31/25 11:29 Results Reviewed Results Reviewed: Laboratory Last Values Urine pH (Auto) 6.0 07/31/25 11:24 Specific Sibley (Auto) 1.030 07/31/25 11:24 Urine Protein (Auto) 30 mg/dL 07/31/25 11:24 Glucose (UA)(Auto) 0 mg/dL 07/31/25 11:24 Urine Ketones (Auto) Negative 07/31/25 11:24 Urine Blood (Auto) 25 Armaan/uL 07/31/25 11:24 Urine Nitrite (Auto) Negative 07/31/25 11:24 Urine Bilirubin (Auto) 0 mg/dL 07/31/25 11:24 Urine Urobilinogen (Auto) 0.2 mg/dL 07/31/25 11:24 Leukocyte Esterase (Auto) 0 Cornel/uL 07/31/25 11:24 Date of Service: 07/20/25 Procedure(s): MR abdomen wo/w con FINDINGS: Liver: There is no loss of signal intensity in the liver on opposed phase imaging to suggest steatosis. The liver is normal in size. There is a bilobed 5 x 11 mm low signal T1 and high signal T2 lesion high in the dome segment segment 7. This demonstrates peripheral puddling enhancement and fills in on later sequences matching that of blood pool compatible with a hemangioma, for example axial image 12 series 14. There is a 1.5 x 2 cm lesion in the central right lobe segment 8. This demonstrates delayed peripheral puddling enhancement and fills in on later sequences matching that of blood pool compatible with a hemangioma for example axial image 18 series 14. There is a third 5 mm high signal T2 lesion in the left lobe segment 2. This is not seen on all sequences and not definitely appreciated on precontrast T1-weighted sequences. This is difficult to accurately characterize. This demonstrates homogeneous enhancement on delayed sequences postcontrast following that of blood pool and probably represents a hemangioma as well for example axial image 19 series 4. No suspicious liver lesion. The hepatic and portal veins are patent. There is no intrahepatic biliary dilatation. Gallbladder/biliary tree: Gallstones. Gallbladder otherwise normal.. The common bile duct is normal in caliber. No intraluminal filling defects are identified to suggest choledocholithiasis. Spleen: The spleen is unremarkable. There is a small splenule. Pancreas: The pancreas is unremarkable. There is no enhancing pancreatic mass. The pancreatic duct is normal in caliber. Adrenals: The adrenal glands are unremarkable. Kidneys: 2.2 x 2.4 x 2.2 cm cyst in the anterior mid right kidney. This is minimally complex with several thin nonenhancing septations. 1 cm simple cyst in the posterior upper pole of the right kidney. No suspicious features. No solid renal mass. The left kidney is normal. There is no hydronephrosis. Visualized ureters do not appear dilated. Lymph nodes: There is no retroperitoneal lymphadenopathy in the upper abdomen. Fluid: There is no ascites in the upper abdomen. Visualized bowel: Diverticulosis of the colon. Visualized bones: The visualized bones demonstrate normal marrow signal intensity. IMPRESSION: Two right renal cysts, largest measuring 2.4 x 2.2 cm with thin nonenhancing septation and 1 cm simple cyst. No renal mass or hydronephrosis. 3 liver lesions. The 2 larger lesions are compatible with benign hemangiomas. The smallest lesion is not seen on all sequences and difficult to accurately characterize but probably represents a hemangioma as well. Gallstones. Assessment & Plan Assessment & Plan (1) Renal cyst: Code(s): N28.1 - Cyst of kidney, acquired Category: Medical Plan In office urinalysis results reviewed with the patient today; as noted above. Most recent MRI renal mass protocol results reviewed with the patient today; as noted above. We did discussed classifications of renal cysts as well as further treatment options and risks and benefits of these treatment options. All questions were answered. She currently denies any bothersome urinary issues or concerns. She reports be happy with current voiding parameters. Will continue with surveillance monitoring. We discussed following up with PCP regarding further assessment evaluation for potential GI referral. Will obtain renal ultrasound in 1 year. Follow-up in 1 year with imaging to be completed prior; or sooner with any issues, concerns, and or questions. Orders: Orders US renal BI 1 Year N28.1 - Cyst of kidney, acquired Urine Cytology Today R31.29 - Other microscopic hematuria AMB Urinalysis Automated Today Z13.9 - Encounter for screening, unspecified Patient Instructions: The patient had an opportunity to ask questions regarding the treatment plan. All questions were answered. Physical exam, labs, and imaging were discussed and reviewed in detail. As well as risks, benefits, and discussion of treatment choices. No major barriers to understanding were identified. The patient expressed understanding and agreement with the above treatment plan. The patient was made aware they should contact our office by phone for worsening of their current condition, the appearance of new symptoms, or with any questions or concerns. Compliance is encouraged with any medications and follow up testing that is ordered. It is a privilege to be allowed the opportunity to participate in? your urological care.? Again, if you have any questions or concerns If you have any questions or concerns please do not hesitate to contact me. The office is [phone]. This note is constructed using voice recognition software. While every effort has been made to ensure accuracy chemist internship errors may have been included. Yours sincerely, KEVIN Barlow Coding Level of Care Code Est Pt Level 3 (70812) Diagnoses Renal cyst N28.1
--- OUTSIDE RECORDS SUMMARY | 2025-07-31 14:32 | XMS_ITS | Encounter Summary ---
Author Organization [employer] Address [address] [place] [address] Care Team Providers Care Secretary Of Police Name Role Phone Rebekah Napoles MD Primary Care Provider [phone] Reason for Visit * Reason Onset Date Comments Med Refill 04/16/2025 Encounter Details Date Type Department Care Team (Late st Contact Info) Description 04/16/2025 Refill [facility] [address] [place], [place] [phone] Rebekah Napoles MD [address] [place], [place] [phone] Social History Tobacco Use Types Packs/Day Years [...] documented as of this encounter Care Teams Secretary Of Police Relationship Specialty Start Date End Date Rebekah Napoles MD [address] [place] [address] PCP - General Family Medicine 06/06/12 documented as of this encounter
--- OUTSIDE RECORDS SUMMARY | 2025-07-31 14:32 | XMS_ITS | Continuity of Care Document ---
Author Organization [facility], [facility] Address [address] [place] [address] Care Team Providers Care Hospital Aides And Assistants Teacher Name Role Phone [facility] Primary Care Provider [phone] Assessment No assessment recorded. Plan of Treatment Reminders Order Date Submit Date Provider Last Modified By Organization Details Last Modified Time Details Appointments MRI REVIEW ONLY 2025 09:00A Betsy light PA-C Not available Not available Not available Lab None recorded. Referral None recorded. Procedures None recorded. Surgeries None recorded. Imaging XR, shoulder, 2 or more view - UC 1 4V right shoulder pain. iraqi speaking 2024 025 [email or web address] [facility], [address], [place], [address], 07/30/2025 12:50:34 MRI, shoulder, w/o contrast [email or web address] [facility] ([facility] [address], [place], [address], 07/30/2025 12:50:34 Medication Orders None recorded. Patient TargetsNo targets recorded. Patient InstructionsNo instructions recorded. Reason for Referral None Reported. Results Created Date Observation Date Name Description Value Unit Range Abnormal Flag Note LastModifiedBy Organization Detail LastModifiedTime 07/30/2007/30/2025 XR, shoul fabienne, 2 or more view http:/ [email or web address] ?Encry pted=s hAaTro YD8dLq bEUv6g %2BXZw aYqtaq 0bqfl% 2Fg9IQ a4ajBk vP9nXo QUaueC m3YtLR FvZlgJ JJ8mAn HZtai3 5n7542 AC0KlY 3qNVqu gKiQtr MwF INTERFACE [facility] [address] [facility] [address], [place], [address], 07/30/2025 10:46:55 07/30/20 25 07/30/2025 XR, shoul fabienne, 2 or more view http:/ [email or web address] ?Encry pted=s hAaTro YD8dLq bEUv6g %2BXZw aYqtaq 0bqfl% 2Fg9IQ a4ajBk vP9nXo QUaueC m3YtLR FvZlgJ JJ8mAn HZtai3 4s0573 AC0KlY 3qNVqu gKiQtr MwF INTERFACE [address] [address], [place], [address], 07/30/2025 10:46:56 Result Notes Documentation Provider Name and Address Organization Details Recorded Time Xr, Shoulder, 2 Or More View : [email or web address]? Encrypted=irVaQoyJR3aZokY Uv6g%0MXChoMpqzw7nlmi%2Fg 5WAm2ncZtbB7gKkRBkccWy0On AKUjJozULU5qCnPZfse05s216 7GC1XjQ3lXLblxQnWmlWtO Not Available [facility] 07/30/2025 10:46: 56 Xr, Shoulder, 2 Or More View : [email or web address] Encrypted=klUpYmxMN5uVmyK Uv6g%8TNAbiLihxf7bmyg%2Fg 4PLh7zwFriC4uGfFIzjkVp9Sr TBMbOzeCDD0uUeYYugt74s697 6WJ3GwZ4jREkqqBzNckXuJ Not Available [facility] 07/30/2025 10:46: 57 Procedures Surgical History Date Name Laterality Status Provider Name and Address Organization Details Recorded Time 5 PM Shoulder Kenalog 2cc Injection Unilateral completed Justin Oshea PA-C [address], [place], [address], [facility] 07/30/2025 11:52:41 Imaging Results None recorded. Procedure Notes None recorded. Medical Equipment None Reported. Allergies Allergen ID Allergen Name Allergen Category Reaction Reaction Severity Criticality Documentation Date Start Date Code Code System Note Provider Name and Address Organization Details Recorded Time 829832 acetamino phen / oxycodone medicatio n hives Not available Not available 07/30/20252024 26629 3 RxNorm Not Available master - External Data Service - prod 5 10:10:52 Medications Name Sig Start Date Stop Date Status Note LastModified by Organization Details LastModified Time metronidazo le 500 mg tablet TAKE 1 TABLET BY MOUTH EVERY 12 HOURS FOR 7 DAYS 07/30 completed Not Available Not Available Not Available acyclovir 5 % topical ointment APPLY TOPICALLY TO THE AFFECTED AREA 6 TIMES A DAY. SPACE APPLICATI ONS EVERY 3 HOURS active Not Available Not Available No t Available naproxen 500 mg tablet TAKE 1 TABLET BY MOUTH TWICE DAILY WITH FOOD NEEDED FOR PAIN active Not Available Not Available No t Available naloxone 4 mg/actuatio n nasal spray CALL 911. SPR CONTENTS OF ONE SPRAYER (0.1ML) INTO ONE NOSTRIL. REPEAT IN 2-3 MIN IF SYMPTOMS OF OPIOID EMERGENCY PERSIST, ALTERNATE NOSTRILS active Not Available Not Available No t Available Slynd 4 mg (28) tablet TAKE 1 TABLET BY MOUTH DAILY active Not Available Not Available No t Available Omron Blood Pressure Monitor-3 Series kit USE DIRECTED TO CHECK BLOOD PRESSURE EVERY DAY active Not Available Not Available No t Available Vitals Date Recorded Body height Body mass index (BMI) Body weight Provider Name and Address Organization Details Last Updated DateTime 07/30/2025 172.72 cm 31.9 kg/m2 74693.4 g ERIN BILLY [facility] 07/30/2025 10:37:21 Social History None recorded. Functional Status None recorded. Mental Status None recorded. Family History Nothing Reported. Medical History No medical history recorded. Gynecological HistoryNo gynecological history recorded. Obstetrics History GPAL:G 0 P 0 0 0 0 Past Encounters Encounter ID Performer Location Encounter Start Date Encounter Closed Date Diagnosis/Indication Diagnosis SNOMED-CT Code Diagnosis ICD10 Code Diagnosis IMO Codes Diagnosis Note [id number] Justin Oshea PA-C [facility] [address] [place] [address] 07/30/2025 10:08:15 07/30/2025 11:53:00 Pain of right shoulder region [id number] M25.511 [id number] Health Concerns Section Related Observation LastModified by Organization Detai ls LastModified Time None Recorded Concern Status LastModified by Organization Details LastModified Time None Recorded Payers Encounter Date Sequence Insurance Name Policy Number Policy Olea Covered Member ID Olea Member ID Guarantor Name 07/30/2025 1 [place] [facility] Verónica Burrell [id number] Verónica Garsia Notes Date Note Type Note Provider Name and Address Organization Details Recorded Time 07/30/2025 text/html I am seeing the patient today under the supervision of Dr. Tracey who was available but who did not see the patient.Diagnosis: Right shoulder impingementThis is a Mongolian-speaking 40-year-old female who presents today with a few week history of right shoulder pain. She was actually seen at [facility] x-rays were obtained she was told she had calcific tendinitis however was only given morphine and anti-inflammatories without benefit. She has severe pain about the shoulder. Difficulty with overhead reaching and lifting. Difficulty sleeping on her side. No specific injury.Past Medical/Surgical History/Meds/Allergies reviewed and chartedPhysical Exam:afebrile, vital signs stable, in no apparent distress,oriented to person/place/time.Gait symmetric.skin intact without erythema.Right SHOULDER: [no redness, warmth, deformity]. Range of motion severe difficulty with range of motion in all planes secondary to pain. She has tenderness to palpation laterally about the shoulder. Rotator cuff testing is 4 out of 5 infraspinatus and supraspinatus with irritability.Left SHOULDER: no redness, warmth, deformity. Range of motion [full in all planes with no stiffness]. Strength [5/5 all muscle groups]. Apprehension [negative]. Impingement sign [negative ]. Acromioclavicular joint [benign with no cross body adduction pain]. Neurovascular Exam wnl.Radiographs: 4 views right shoulder ordered obtained and reviewed today in the office show type III acromion. Mild AC joint arthropathy. No obvious calcific tendinosis. No glenohumeral arthritis.Impression: Right shoulder impingement rotator cuff tendinitisPlan: 1. In regards to her shoulder I have recommended a course of physical therapy. Recommended and went forth with a subacromial cortisone injection. Hopefully this will decrease her symptoms. I discussed with her should this not decrease her symptoms may ultimately need subacromial decompression distal clavicle excision and given the weakness and pain she has not rotator cuff testing would obtain an MRI to rule out rotator cuff tear. Follow-up with us in 3 to 4 weeks to review the MRI.[facility] speech recognition school bus monitor software was used to create portions of this document. An attempt at proofreading has been made to minimize errors. Please call for corrections. Justin Oshea PA-C [address], [place], [address], [facility] 07/30/2025 11:52:58 OBGyn Episode No OBEpisode recorded.
--- OUTSIDE RECORDS SUMMARY | 2025-07-31 14:32 | XMS_ITS | Encounter Summary ---
Author Organization [employer] Address [address] [place] [address] Care Team Providers Care Manager Quality Name Role Phone Rebekah Napoles MD Primary Care Provider [phone] Reason for Visit * Reason Onset Date Comments Med Refill 04/16/2025 Encounter Details Date Type Department Care Team (Late st Contact Info) Description 04/16/[address] [facility] [address] [place], [place] [phone] Kelly Arredondo MD [address] [place], [place] [phone] Social History Tobacco Use Types Packs/Day Years [...] documented as of this encounter Care Teams Manager Quality Relationship Specialty Start Date End Date Rebekah Napoles MD [address] [place] [address] PCP - General Family Medicine 06/06/12 documented as of this encounter
--- OUTSIDE RECORDS SUMMARY | 2025-07-31 14:32 | XMS_ITS | Data Portability ---
Author Organization [facility], SABI Aleena PT Address [address] [place] [address] Care Team Providers Care Supervisor Production Department Name Role Phone [facility] Primary Care Provider Assessment No assessment recorded. Plan of Treatment Reminders Order Date Submit Date Provider Last Modified By Organization Details Last Modified Time Details Appointments MRI REVIEW ONLY 2025 09:00A M Robbin light PA-C Not available Not available Not available Lab None recorded. Referral None recorded. Procedures None recorded. Surgeries None recorded. Imaging XR, shoulder, 2 or more view - UC 1 4V right shoulder pain. wolof speaking 2024 025 [email or web address] [facility], [address], [facility] [address], [place], [address], 07/30/2025 12:50:34 MRI, shoulder, w/o contrast 2024 025 [email or web address] [facility] ([facility]), [address], [place], [address], 07/30/2025 12:50:34 Medication Orders None recorded. Patient [...] a4ajBk vP9nXo QUaueC m3YtLR FvZlgJ JJ8mAn HZtai3 7d2422 AC0KlY 3qNVqu gKiQtr MwF INTERFACE [facility] [address], [address], 07/30/2025 10:46:55 07/30/20 25 07/30/2025 XR, shoul fabienne, 2 or more view http:/ [email or web address] ?Encry pted=s hAaTro YD8dLq bEUv6g %2BXZw aYqtaq 0bqfl% 2Fg9IQ a4ajBk vP9nXo QUaueC m3YtLR FvZlgJ JJ8mAn HZtai3 0g9656 AC0KlY 3qNVqu gKiQtr MwF INTERFACE [facility] [address] [address], [place], [address], 07/30/2025 10:46:56 Result Notes Documentation Provider Name and Address Organization Details Recorded Time Xr, Shoulder, 2 Or More View : [email or web address] Encrypted=feKaYxaOK2nBvxL Uv6g%0JUCmaAcekn7pguh%2Fg 6MDn2dbTkiD3aAtXJtwiBd1Eg BDAeVaxMTR2lLlSLmxi16v573 1RC7PeI5jJVusyOrNyzBdH Not Available [facility] 07/30/2025 10:46: 56 Xr, Shoulder, 2 Or More View : [email or web address]? Encrypted=wyHbVfqBI2nVpzI Uv6g%9FUTsdUpolk6fdzg%2Fg 2OSe0peDxtG6jImLWfvdBt7Ul IDHaNdqYFN8iFrNRxve04i339 9YX6QlL8aXGhrdPpXxrYnC Not Available [facility] 07/30/2025 10:46: 57 Procedures Surgical History Date Name Laterality Status Provider Name and Address Organization Details Recorded Time 5 PM Shoulder Kenalog 2cc Injection Unilateral completed Justin Oshea PA-C [address], [place], [address], [facility] 07/30/2025 11:52:41 Imaging Results None recorded. Procedure Notes None recorded. Medical Equipment None Reported. Allergies Allergen ID Allergen Name Allergen Category Reaction Reaction Severity Criticality Documentation Date Start Date Code Code System Note Provider Name and Address Organization Details Recorded Time 642921 acetamino phen / oxycodone medicatio n hives Not available Not available 07/30/20252024 31925 3 RxNorm Not Available [employer] - External Data Service - prod 5 [...] Updated DateTime 07/30/2025 172.72 cm 31.9 kg/m2 20264.4 g ERIN BILLY [facility] [...] ICD10 Code Diagnosis IMO Codes Diagnosis Note [id number] Justin Oshea PA-C [facility] [place] [address] [place] [address] 07/30/2025 10:08:15 07/30/2025 11:53:00 Pain of right shoulder region 6380436652 M25.511 [id number] Health Concerns Section Related Observation LastModified by Organization Detai ls LastModified Time None Recorded Concern Status LastModified by Organization Details LastModified Time None Recorded Advance Directives Directive None Recorded Payers Insurance Date Sequence Insurance Name Policy Number Policy Olea Covered Member ID Olea Member ID Guarantor Name 07/30/2025 1 [place] [facility] Verónica Burrell [id number] Verónica Garsia Notes Date Note Type Note Provider Name and Address Organization Details Recorded Time 07/30/2025 text/html I am seeing the patient today under the supervision of Dr. Tracey who was available but who did not see the patient.Diagnosis: Right shoulder impingementThis is a Thai-speaking 40-year-old female who presents today with a few week history of right shoulder pain. She was actually seen at [facility] x-rays were obtained she was told she [...] 3 to 4 weeks to review the MRI.[facility] speech recognition medical transcription editor software was used to create portions of this document. An attempt at proofreading has been made to minimize errors. Please call for corrections. Justin Oshea PA-C [address], [place], [address], [facility] 07/30/2025 11:52:58 OBGyn Episode No OBEpisode recorded.
--- OUTSIDE RECORDS SUMMARY | 2025-07-31 14:32 | XMS_ITS | Clinical Summary ---
Author Organization [facility] Address [address] [place] [address] [place] [address] Phone Care Team Providers Care Dispute Resolution Analyst Name Role Phone Rebekah Napoles MD Primary Care Provider [phone] Allergies Active Allergy Reactions Criticality Noted Date Comments Oxycodone-Acetaminophen 07/29/2025 Medications morphine (MSIR) 15 MG tablet Take 1 tablet (15 mg total) by mouth every 6 (six) hours as needed for pain (specific location in comments). Partial fill ok 12 tablet 07/29/2025 08/01/20 Active Encounters Date Type Department Care Team Description 07/29/2025 5:15 AM EST - 07/29/2025 11:17 AM EST Emergency [facility] [address] [place] [address] Discharge Disposition: Home or Self Care from Last 3 Months Social History Tobacco Use Types Packs/Day Years [...] Orientation Straight 07/29/2025 5: 16 AM EST Last Filed Vital Signs Vital Sign Reading Time Taken Comments Blood Pressure 112/56 07/29/2025 11:06 AM EST Pulse 79 07/29/2025 11:06 AM EST Temperature 36.2 C (97.2 F) 07/29/2025 11:06 AM EST Respiratory Rate 14 07/29/2025 11:06 AM EST Oxygen Saturation 99% 07/29/2025 11:06 AM EST Inhaled Oxygen Concentration - - Weight - - Height - - Body Mass Index - - Plan of Treatment Health Maintenance Due Date Last Done Comments DEPRESSION SCREENING 1998 SMOKING Hx and SMOKELESS TOBACCO SCREENING 1999 HEPATITIS C SCREENING 2004 HIV ONE-TIME SCREENING (18-6 5 YEARS) 2004 PAP SMEAR 2007 INFLUENZA VACCINE (#1) 2025 COVID-19 VACCINE ( - 2024-2 6 season) 2025 Adult Td,Tdap Booster 01/25/2031 01/25/2021 , 08/14/2014 PNEUMOCOCCAL VACCINES (0-49 years) Aged Out 08/14/2014 No longer eligible b ased on patient's age to complete this topic HEPATITIS A VACCINES Aged Out No long er eligible based on patient's age to complete this topic HIB VACCINES Aged Out No longer eligi ble based on patient's age to complete this topic MENINGOCOCCAL VACCINES (ACWY) Aged Out No longer eligible based on patient's age to complete this topic MENINGOCOCCAL VACCINES (B) Aged Out N o longer eligible based on patient's age to complete this topic Medical Devices Not on file Procedures Procedure Name Priority Date/Time Associated Diagnosis Comments ECG 12-LEAD STAT 07/29/2025 8:46 AM EST XR SHOULDER 2 VIEWS (RIGHT) Routine 07/29/2025 8:38 AM EST from Last 3 Months Results * ECG 12-LEAD (07/29/2025 8:46 AM EST) Ventricular Rate EKG/MIN 86 BPM [facility] Atrial Rate 86 BPM [facility] DC Interval 140 ms [facility] QRS Duration 76 ms [facility] QT Interval 358 ms [facility] QTC Interval 428 ms [facility] P Miles 37 degrees [facility] R Wave Miles 1 degrees [facility] T Wave Miles 37 degrees [facility] 07/29/2025 8:46 AM EST [...] IMG XR UPPER EXTREMIT Y Final Result from Last 3 Months Insurance C3 ACO C3 ACO Care Teams Dispute Resolution Analyst Relationship Specialty Start Date End Date Rebekah Napoles MD [address] [place] [address] PCP - General Family Medicine 07/29/25 Additional Source Comments The information contained in this document represents components of the legal health record. It is not the complete legal health record.[facility]
--- OUTSIDE RECORDS SUMMARY | 2025-07-31 14:33 | XMS_ITS | Encounter Summary ---
Author Organization [employer] Address [address] [facility] 7 [place] [address] Care Team Providers Care Internal Investigator Name Role Phone Rebekah Napoles MD Primary Care Provider [phone] Encounter Details Date Type Department Care Team (Late st Contact Info) Description 09/27/2024 Orders Only [facility] [address] [place] [address] Provider, MD David Social History Tobacco Use [...] documented as of this encounter Care Teams Internal Investigator Relationship Specialty Start Date End Date Rebekah Napoles MD [address] [place] [address] PCP - General Family Medicine 06/06/12 documented as of this encounter
--- OUTSIDE RECORDS SUMMARY | 2025-07-31 14:33 | XMS_ITS | Encounter Summary ---
Author Organization [employer] Address [address] [facility] 7 [place] [address] Care Team Providers Care Ice Cream Dispenser Name Role Phone Rebekah Napoles MD Primary Care Provider Reason for Visit * Reason Onset Date Comments Med Refill 12/19/2024 Encounter Details Date Type Department Care Team (Late st Contact Info) Description 12/19/2024 Refill [facility] [address] [place] [address] Nate Gill MD [address] [place] [address] Social History Tobacco Use Types Packs/Day Years [...] documented as of this encounter Care Teams Ice Cream Dispenser Relationship Specialty Start Date End Date Rebekah Napoles MD [address] [place] [address] PCP - General Family Medicine 06/06/12 documented as of this encounter
--- OUTSIDE RECORDS SUMMARY | 2025-07-31 14:33 | XMS_ITS | Encounter Summary ---
Author Organization [employer] Address [address] [facility] 7 [place] [address] Care Team Providers Care Food Preparation Kitchen Aide Name Role Phone Rebekah Napoles MD Primary Care Provider [phone] Reason for Visit * Reason Onset Date Comments Med Refill 05/22/2025 Encounter Details Date Type Department Care Team (Late st Contact Info) Description 05/22/2025 Refill [facility] [address] [place], [place] [phone] Rebekah Napoles MD [address] [place], [place] [phone] Social History Tobacco Use Types Packs/Day Years [...] documented as of this encounter Care Teams Food Preparation Kitchen Aide Relationship Specialty Start Date End Date Rebekah Napoles MD [address] [place] [address] PCP - General Family Medicine 06/06/12 documented as of this encounter
--- OUTSIDE RECORDS SUMMARY | 2025-07-31 14:33 | XMS_ITS | Encounter Summary ---
Author Organization [employer] Address [address] [facility] [place] [address] Care Team Providers Care Box Chipper Name Role Phone Rebekah Napoles MD Primary Care Provider [phone] Encounter Details Date Type Department Care Team [...] documented as of this encounter Care Teams Box Chipper Relationship Specialty Start Date End Date Rebekah Napoles MD [address] [place] [phone] PCP - General Family Medicine 06/06/12 documented as of this encounter
--- OUTSIDE RECORDS SUMMARY | 2025-07-31 14:33 | XMS_ITS | Encounter Summary ---
Author Organization [employer] Address [address] [facility] [address] [place] [address] Care Team Providers Care Vp Global Name Role Phone Rebekah Napoles MD Primary Care Provider [phone] Encounter Details Date Type Department Care Team ([facility] Contact Info) Description 07/31/2025 Results Follow-Up [facility] [address] [place] [address] Name, MD Thomas [address] [place] [address] XR Shoulder 2+ Views Right Social History Tobacco Use Types Packs/Day Years [...] documented as of this encounter Care Teams Vp Global Relationship Specialty Start Date End Date Rebekah Napoles MD [address] [place] [address] PCP - General Family Medicine 06/06/12 documented as of this encounter
--- OUTSIDE RECORDS SUMMARY | 2025-07-31 14:33 | XMS_ITS | Encounter Summary ---
Author Organization [employer] Address [address] [facility] [address] [place] [address] Care Team Providers Care Pmo Consultant Name Role Phone Rebekah Napoles MD Primary Care Provider [phone] Encounter Details Date Type Department Care Team ([facility] st Contact Info) Description 10/06/2024 Orders Only [facility] MEDICINE [address] [place], [place] [phone] Rebekah Napoles MD [address] [place], [place] [phone] Cyst of right kidney (Primary Dx); Anemia [...] the past 12 months, has t he [employer], oil or water company threatened to [...] Hormone, Intact 103.3(H) 8.7 - 77.1 pg/mL [facility] Blood Venous blood specimen / Unknown 12/19/2024 12:11 PM EDT 12/19/2024 1:20 PM EDT Rebekah Napoles MD LAB BLOOD ORDERABLES Final Resul t Performing Organization Address City/[facility]/ZIP Co de Phone Number [facility] [address] [place] [phone] * (ABNORMAL) Vitamin D, 25-Hydroxy, Total, Immunoassay (12/19/2024 12:11 PM EDT) Vitamin D 25-OH Total 27.8(L) >30 ng/mL [facility] Comment: Health Based Reference Values*< 20 ng/mL [id number] ng/mL Insufficient> 30 ng/mL Sufficient*Robert CASTRO. N [...] Final Resul t Performing Organization Address [facility] Co de Phone Number [facility] [address] [place] [phone] * Vitamin B12 (Cobalamin) and Folate Panel, Serum (12/19/2024 12:11 PM EDT) Vitamin B12 303 200 - 900 pg/mL [facility] Comment:NORMAL 200-900 PG/ML INDETERMINATE 160-199 PG/ML DEFICIENT < 160 PG/ML Folate 6.4 > or = 4.0 ng/mL [facility] Comment:Reference Values:> o r = [...] Final Resul t Performing Organization Address [facility] de Phone Number [facility] [address] [place] [phone] * (ABNORMAL) Reticulocyte Count (12/19/2024 12:11 PM EDT) Reticulocytes Absolute 0.067 0.026 - 0.095 X10*6/uL [facility] Immature Retic Fraction 20.9(H) 3.0 - 15.9 % [facility] Retic HGB Equivalent 24.9(L) 30.0 - 35.0 pg [facility] Reticulocyte Percent 1.2 0.5 - 1.8 % [facility] Blood Venous blood specimen / Unknown 12/19/2024 12:11 PM EDT 12/19/2024 1:20 PM EDT Rebekah Napoles MD LAB BLOOD ORDERABLES Final Resul t Performing Organization Address [facility] Co de Phone Number [facility] [address] [place] [address] [phone] * Pathologist Review - CBC (12/19/2024 12:11 PM EDT) Pathologist Review - CBC SEE NOTE [facility] Comment:Scattered red blood cell targets are identified. Otherwise,red blood cells are normal appearing. White blood cells arenormal appearing. Platelets are normal appearing.- John Cabrales M.D. Pathology Blood Venous blood specimen / Unknown 12/19/2024 12:11 PM EDT 12/19/2024 1:20 PM EDT Rebekah Napoles MD LAB BLOOD ORDERABLES Final Resul t Performing Organization Address [facility] Co de Phone Number [facility] [address] [place] [phone] * Iron And Total Iron Binding Capacity (12/19/2024 12:11 PM EDT) Iron 57 30 - 160 mcg/dL [facility] Total Iron Binding Capacity 386 228 - 428 mcg/dL [facility] Percent Iron Saturation 15 15 - 50 % [facility] Unsaturated Iron Binding 329 ug/dL [facility] Blood Venous blood specimen / Unknown 12/19/2024 12:11 PM EDT 12/19/2024 1:20 PM EDT us Rebekah Napoles MD LAB BLOOD ORDERABLES Final Resul t Performing Organization Address [facility] Co de Phone Number [facility] [address] [place] [phone] * (ABNORMAL) Ferritin (12/19/2024 12:11 PM EDT) Ferritin 6(L) 10 - 122 ng/mL [facility] Blood Venous blood specimen / Unknown 12/19/2024 12:11 PM EDT 12/19/2024 1:20 PM EDT Rebekah Napoles MD LAB BLOOD ORDERABLES Final Resul t Performing Organization Address City/[facility]/ZIP Co de Phone Number [facility] [address] [place] [phone] * Hepatitis B surface antigen, EIA (12/19/2024 12:11 PM EDT) Hepatitis B Surface Ag Negative Negative [facility] Blood Venous blood specimen / Unknown 12/19/2024 12:11 PM EDT 12/19/2024 1:20 PM EDT us Rebekah Napoles MD LAB BLOOD ORDERABLES Final Resul t Performing Organization Address City/[facility]/ZIP Co de Phone Number [facility] [address] [place] [phone] * HIV-1/2 Antigen and Antibodies, Fourth Generation, with Reflexes (12/19/2024 12:11 PM EDT) Pathologist [facility] HIV AB/AG Nonreactive Nonreactive [facility] Comment:HIV-1 p24 Ag and/or HIV-1/HIV-2 Ab not detected.A test result that is nonreactive does not exclude thepossibility of exposure to or infection with HIV-1 and/orHIV-2. Nonreactive results in this assay for individualswith prior exposure to HIV-1 and/or HIV-2 may be due toantigen and antibody levels that are below the limit ofdetection of this assay.The [employer] HIV Ag/Ab Combo assay result andsupplemental assay results should be interpreted inconjunction with the patient's clinical presentation,history and other laboratory results. If the results areinconsistent with clinical evidence, additional testing issuggested to confirm the result. Blood Venous blood specimen / Unknown 12/19/2024 12:11 PM EDT 12/19/2024 1:20 PM EDT us Rebekah Napoles MD LAB BLOOD ORDERABLES Final Resul t Performing Organization Address City/[facility]/ZIP Co de Phone Number [facility] [address] [place] [phone] * Hepatitis C Antibody with Reflex to HCV, RNA, Quantitative, Real-Time PCR (12/19/2024 12:11 PM EDT) Pathologist [facility] Hepatitis C Antibody Nonreactive Nonreactive [facility] Comment:Antibodies to HCV no t detected; does not exclude early acuteHCV infection. Blood Venous blood specimen / Unknown 12/19/2024 12:11 PM EDT 12/19/2024 1:20 PM EDT Rebekah Napoles MD LAB BLOOD ORDERABLES Final Resul t Performing Organization Address [facility]/ZIP Co de Phone Number [facility] [address] [place] [phone] * Syphilis Screen (12/19/2024 12:11 PM EDT) Pathologist [facility] Syphilis Screen Nonreactive Nonreactive [facility] Blood 12/19/2024 12:1 1 PM EDT 12/19/2024 1:27 PM EDT Rebekah Napoles MD LAB BLOOD ORDERABLES Final Resul t Performing Organization Address [facility] Co de Phone Number [facility] [address] [place] [phone] * (ABNORMAL) Hemoglobin Electrophoresis (12/19/2024 12:11 PM EDT) Pathologist [facility] RBC 5.44(A) 3.80 - 5.10 Million/u L [facility] Hemoglobin 12.4 11.7 - 15.5 g/dL [facility] Hematocrit 40.6 35.0 - 45.0 % [facility] MCV 74.6(A) 80.0 - 100.0 fL [facility] MCH 22.8(A) 27.0 - 33.0 pg [facility] RDW 16.1(A) 11.0 - 15.0 % [facility] Hemoglobin A 97.4 >96.0 % [facility] Hemoglobin A2 2.3 2.0 - 3.2 % [facility] Hemoglobin F 0.3 <2.0 % [facility] Hemoglobin S TNP [facility] Hemoglobin C TNP [facility] Hemoglobin E TNP [facility] Other Hemoglobin TNP [facility] Other Hemoglobin 2 TNP H [facility] Hgb Interpretation SEE NOTE H [facility] Comment:Microcytosis and nor mal hemoglobin pattern may be seen in irondeficiency or alpha thalassemia. If iron deficiency is corrected /ruled out but MCV remains in low range molecular testing should beconsidered for genetic counselling reasons ([employer] TestCode 84594).THIS TEST WAS PERFORMED AT:[employer] [address] [phone] SAINZ MD Blood Venous blood specimen / Unknown 12/19/2024 12:11 PM EDT 12/19/2024 1:20 PM EDT Rebekah Napoles MD LAB BLOOD ORDERABLES Final Resul t [facility] [address] [place] [address] [phone] * US Abdomen Limited (10/06/2024 1:30 PM EST) Anatomical Region Laterality Modality Abdomen Ultrasound 10/06/2024 1:30 PM EST Narrative 10/06/2024 2:35 PM EST [address] [address] Ultrasound Report Signed Patient: Verónica Starkey MR# : [id number] : 1985 Acct:[id number] Age/Sex: 39 / F ADM Date: 10/06/24 Loc: HO.ED Attending Dr: Ordering Physician: Madonna Basilio Date of Service: 10/06/24 Procedure(s): US abdomen limited Accession Number(s): [id number] cc: Madonna Basilio; Rebekah Napoles MD EXAMINATION: [...] by: Clinton Capps MD 10/06/2024 02:25 PM [facility] Dictated By: Clinton Naranjo MD Signed By: <Electronically signed by Clinton Lopez MD in OV> 10/06/24 1425 DD/ 1330 TD/TT: 10/06/24 1400 [employer] Operator: Procedure Note Donotuseinterpreter, Image - 10/06/2024 [place] [address] Ultrasound Report Signed Patient: Verónica Starkey CMR# : [id number] : 1985Acct:[id number] Age/Sex: 39 / FADM Date: 10/06/24 Loc: HO.ED Attending Dr: Ordering Physician: Madonna Basilio Date of Service: 10/06/24 Procedure(s): US abdomen limited Accession Number(s): [id number] cc: Madonna Basilio; Rebekah Napoles MD EXAMINATION: [...] 10/06/24 1425 DD/ 1330 TD/TT: 10/06/24 1400 [employer] Operator: [facility] External Provider IMG US PROCEDURES Final Result * HCG, Qualitative, Urine (10/06/2024 11:14 AM EST) Urine NEGATIVE NEGATIVE [facility] Comment:This test was develo ped to detect early . Falsenegative results may occur after the 5th - 7th week ofpregnancy when using this test method. If clinicallyindicated, consider a serum hCG. 10/06/2024 11:1 4 AM EST 10/06/2024 11:18 AM EST Generic External Data Provider LAB URINE ORDERAB LES Final Result [facility] [address] [place] [phone] * Urinalysis w/reflex microscopic (10/06/2024 11:14 AM EST) Color Urine Yellow [facility] Appearance Urine Clear [facility] PH 5.5 5.0 - 9.0 [facility] Glucose Urine UA Negative Negative mg/dL [facility] Urine Blood Negative Negative [facility] Specific [place] - Urine 1.020 1.005 - 1.025 [facility] Urine Protein Negative Neg-Trace mg/dL [facility] Urine Ketones Trace Negative mg/dL [facility] Nitrite Urine Negative Negative [facility] Leukocyte Esterase Urine Negative Negative [facility] 10/06/2024 11:1 4 AM EST 10/06/2024 11:18 AM EST Narrative [facility] - 10/06/2024 11:23 AM EST [id number], [employer] External Data Provider LAB URINE ORDERAB LES Final Result [facility] [address] [place] [phone] * (ABNORMAL) Comprehensive Metabolic Panel (10/06/2024 11:13 AM EST) Sodium 140 135 - 145 mmol/L [facility] Potassium 4.3 3.3 - 5.1 mmol/L [facility] Chloride 110(H) 96 - 108 mmol/L [facility] Carbon Dioxide 25 22 - 29 mmol/L [facility] Anion Gap 9(L) 12 - 20 [facility] Urea Nitrogen (BUN) 5(L) 9 - 16 mg/dL [facility] Creatinine, Serum 0.70 0.5 - 1.4 mg/dL [facility] Creatinine Clr Calc Pharmacy 125.8 [facility] Comment:Provided height and weight: 172.72 cm,87.09 kg.eGFR (calculated from the MDRD study equation) and eCrCl(calculated from the Cockcroft-Gault equation) are based ondifferent parameters and may not yield comparable results.If eCrCl result is absurd, please check patient'sheight/weight. Estimated Glomerular Filt Rate >60 [facility] Comment:Chronic Kidney Disea se: Estimated GFR < 60 mL/min/1.98d0Meukpr Kidney Disease: Estimated GFR < 15 mL/min/1.73m2 Glucose 83 60 - 115 mg/dL [facility] Calcium 9.5 8.4 - 10.2 mg/dL [facility] Bilirubin, Total 0.3 0.0 - 1.0 mg/dL [facility] Aspartate Amino Transferase 21 5 - 31 U/L [facility] Alanine Aminotransferase 13 0 - 31 U/L [facility] Total Protein 7.9 6.5 - 8.0 g/dL [facility] Albumin Level 4.0 3.5 - 5.0 g/dL [facility] Alkaline Phosphatase 128(H) 39 - 117 U/L [facility] 10/06/2024 11:1 3 AM EST 10/06/2024 11:18 AM EST us Generic External Data Provider LAB BLOOD ORDERAB LES Final Result Performing Organization Address City/State/[facility] Co de Phone Number [facility] [address] [place] [phone] * (ABNORMAL) CBC auto differential (10/06/2024 11:13 AM EST) White Blood Count 8.0 4.8 - 10.8 X10*3/uL [facility] Red Blood Count 5.13 4.20 - 5.50 X10*6/uL [facility] Hemoglobin 11.8(L) 12.0 - 16.0 g/dl [facility] Hematocrit 38.1 37.0 - 47.0 % [facility] Mean Corpuscular Volume 74.3(L) 80.0 - 98.0 fL [facility] Mean Corpuscular Hemoglobin 23.0(L) 27.0 - 33.0 pg [facility] Mean Corpuscular HGB Conc 31.0 31.0 - 35.0 g/dl [facility] Red Cell Distribution Width 15.0 11.0 - 16.0 % [facility] Platelet Count 172 160 - 400 X10*3/uL [facility] Mean Platelet Volume 10.8 9.4 - 12.3 fL [facility] Neutrophils Percent Auto 54.3 45 - 73 % [facility] Imm Gran Pct Auto 0.1 0.0 - 0.4 % [facility] Lymphocytes Percent Auto 38.4 20 - 40 % [facility] Monocytes Percent Auto 6.5 2 - 11 % [facility] Eosinophils Percent Auto 0.5 0 - 4 % [facility] Basophils Percent Auto 0.2 0 - 2 % [facility] NRBC Pct Auto 0.0 0.0 - 0.2 /100WBC [facility] Neutrophils Absolute Auto 4.4 2.0 - 8.3 x10*3/uL [facility] Imm Gran Abs Auto 0.01 0.00 - 0.03 X10*3/uL [facility] Lymphocytes Absolute Auto 3.1 1.2 - 4.9 X10*3/uL [facility] Monocytes Absolute Auto 0.5 0.1 - 1.2 X10*3/uL [facility] Eosinophils Absolute Auto 0.0 0.0 - 0.4 X10*3/uL [facility] Basophils Absolute Auto 0.0 0.0 - 0.2 X10*3/uL [facility] NRBC Abs Auto 0.000 0.0 - 0.012 X10*3/uL [facility] 10/06/2024 11:1 3 AM EST 10/06/2024 11:18 AM EST us Generic External Data Provider LAB BLOOD ORDERAB LES Final Result [facility] [address] [place] [phone] documented in this encounter Visit Diagnoses [...] documented as of this encounter Care Teams Pmo Consultant Relationship Specialty Start Date End Date Rebekah Napoles MD [address] [place] [address] PCP - General Family Medicine 06/06/12 documented as of this encounter
--- OUTSIDE RECORDS SUMMARY | 2025-07-31 14:33 | XMS_ITS | Clinical Summary ---
Author Organization [facility] Address [address] [place] [address] Phone Care Team Providers Care Flight Security Specialist Name Role Phone Rebekah Napoles MD Primary Care Provider [phone] Allergies Active Allergy Reactions Criticality Noted Date [...] Site/Laterality Comments BELT ABDOMINOPLASTY PROCEDURE: HISTORICAL TUMMY AMY Medical History Medical History Date Comments [...] topic Insurance MEDICAID - [place] Care Teams Flight Security Specialist Relationship Specialty Start Date End Date Rebekah Napoles MD [address] [place] [phone] PCP - General Family Medicine 09/26/24
--- OUTSIDE RECORDS SUMMARY | 2025-07-31 14:33 | XMS_ITS | Clinical Summary ---
Author Organization [employer] Address [address] [place] [address] Care Team Providers Care Screen Printing Stencil Preparer Name Role Phone Rebekah Napoles MD Primary Care Provider [phone] Allergies No known active allergies Medications ergocalciferol (Vitamin D-2) 1.25 MG (41093 UT) capsule Take 1 capsule by mouth [...] AUB - 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 with RESOURCE EFFICIENCY MANAGER for Program Analyst exam - received Iron Infusions in January and February 2023 from Case Consultant - pt also has folic acid deficiency; continue folic acid supplementation Assessment & Plan (12/30/2023 10:39 AM EDT): - likely AUB - 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 with RESOURCE EFFICIENCY MANAGER for Program Analyst exam - received Iron Infusions in January and February 2023 from Case Consultant - pt also has folic acid deficiency; continue folic acid supplementation Assessment & Plan (05/04/2023 1:36 PM EDT): - likely AUB - 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 with RESOURCE EFFICIENCY MANAGER for Program Analyst exam - received Iron Infusions in January and February 2023 from Case Consultant - pt also has folic acid deficiency; continue folic acid supplementation Assessment & Plan (01/02/2023 7:07 AM EDT): - likely AUB - 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 with RESOURCE EFFICIENCY MANAGER for Program Analyst exam - pt requests iron infusion - refer to hematology service - pt also has folic acid deficiency; continue folic acid supplementation Allergic rhinitis 04/22/2015 Assessment & Plan (12/30/2023 10:40 AM EDT): -Continue Loratadine, prn Assessment & Plan (12/31/2022 12:57 PM EDT): -Continue Loratadine, prn Asthma 11/29/2014 Assessment & Plan (01/16/2025 8:51 AM EDT): -Last exacerbation in Aug 2020, seen in [facility] ED, CTA negative for PE -Oct 2019, Dx bronchitis, Rx prednisone and azithromycin -Previously on Singulair and Flovent, which were discontinued due to poor adherence and less symptom -Continue Albuterol prn -Strongly advised to work on smoking cessation Assessment & Plan (12/30/2023 10:38 AM EDT): -Last exacerbation in Aug 2020, seen in [facility] ED, CTA negative for PE -Oct 2019, Dx bronchitis, Rx prednisone and azithromycin -Previously on Singulair and Flovent, which were discontinued due to poor adherence and less symptom -Continue Albuterol prn -Strongly advised to work on smoking cessation Assessment & Plan (01/02/2023 7:06 AM EDT): -Last exacerbation in Aug 2020, seen in [facility] ED, CTA negative for PE -Oct 2019, Dx bronchitis, Rx prednisone and azithromycin -Previously on Singulair and Flovent, which were discontinued due to poor adherence and less symptom -Continue Albuterol prn -Strongly advised to work on smoking cessation Encounters Date Type Department Care Team Description 07/31/2025 Results Follow-Up [facility] MEDICINE [address], [place] [phone] Thomas Vernon MD XR Shoulder 2+ Views Right 07/27/2025 11:20 AM EST Office Visit [facility] WALK-IN CENTER [address], [place] [phone] Thomas Vernon MD Acute pain of right shoulder (Primary Dx) 07/27/2025 Travel 07/20/2025 Orders Only [facility] External Provider, [facility] 05/22/2025 Refill [facility] MEDICINE [address], [place] [phone] Rebekah Napoles MD 05/22/2025 Refill [facility] MEDICINE [address], [place] [phone] Rebekah Napoles MD from Last 3 Months [...] your housing situation today? I have ishan trevioñ 01/15/[address] you li [...] 06/08/2022 06/08/2017 COVID-19 Vaccine ( - season) 2025 Influenza Vaccine (#1) 2025 08/14/2014, 2011 Disability Screening 01/14/2026 01/14/2025 Alcohol/Substance Use Screening 01/15/2026 01/15/2025 SDOH Screening 01/15/2026 01/15/2025 Depression Screening 01/16/2026 01/16/2025, 01/17/20 25 Tobacco Screening 07/27/2026 07/27/2025 Lipid Panel 12/29/2028 [...] PM EST Acute pain of right shoulder MR ABDOMEN W AND WO CONTRAST Routine [...] Recently Relevant to Health Maintenance Results * XR Shoulder 2+ Views Right (07/27/2025 12:29 PM EST) Anatomical Region Laterality Modality Upper Extremities, Shoulder Right Radi ographic Imaging 07/27/2025 12:2 9 PM EST Narrative 07/27/2025 12:45 PM EST [address] [address] XRay Report Signed Patient: Verónica Starkey MR# : [id number] : 1985 Acct:[id number] Age/Sex: 40 / F ADM Date: 07/27/25 Loc: HO.HHCX Attending Dr: Thomas Vernon MD Ordering Physician: Thomas Vernon MD Date of Service: 07/27/25 Procedure(s): XR shoulder RT min 2V Accession Number(s): [id number] cc: Thomas Vernon MD; Rebekah Napoles MD [...] by: Santiago Diaz MD 07/27/2025 12:42 PM [facility] Dictated By: Santiago Diaz MD Signed By: <Electronically signed by Santiago Diaz MD in OV> 07/27/25 1242 DD/ 1229 TD/TT: 07/27/25 1231 Wax Bleacher: Procedure Note Donotuseinterpreter, Image - 07/27/[address] [address] XRay Report Signed Patient: Verónica Starkey CMR# : [id number] : 1985Acct:[id number] Age/Sex: 40 / FADM Date: 07/27/25 Loc: HO.HHCX Attending Dr: Thomas Vernon MD Ordering Physician: Thomas Vernon MD Date of Service: 07/27/25 Procedure(s): XR shoulder RT min 2V Accession Number(s): [id number] cc: Thomas Vernon MD; Rebekah Napoles MD [...] 07/27/25 1242 DD/ 1229 TD/TT: 07/27/25 1231 Wax Bleacher: us Thomas Name IMG XR PROCEDURES Final Result * MR Abdomen w/ and w/o Contrast (07/20/2025 12:03 PM EST) Anatomical Region Laterality Modality Abdomen Magnetic Resonan ce 07/20/2025 12:0 3 PM EST Narrative 07/20/2025 1:15 PM EST [place] [address] Magnetic Resonance Report Signed Patient: Verónica Starkey MR# : [id number] : 1985 Acct:[id number] Age/Sex: 40 / F ADM Date: 07/20/25 Loc: HO.MRI Attending Dr: Latisha BROWN Ordering Physician: Latisha Banuelos Date of Service: 07/20/25 Procedure(s): MR abdomen wo/w con Accession Number(s): [id number] cc: Latisha Banuelos; Rebekah Napoles MD Reason [...] Negin White MD 07/20/2025 01:12 PM EST Dictated By: Negin White MD Signed By: <Electronically signed by Negin White MD in OV> 07/20/25 1312 DD/ 1203 TD/TT: 07/20/25 1228 Wax Bleacher: FRITZ Procedure Note Donotuseinterpreter, Image - 07/20/2025 [place] [address] Magnetic Resonance Report Signed Patient: Verónica Starkey CMR# : [id number] : 1985Acct:[id number] Age/Sex: 40 / FADM Date: 07/20/25 Loc: HO.MRI Attending Dr: Latisha BROWN Ordering Physician: Latisha Banuelos Date of Service: 07/20/25 Procedure(s): MR abdomen wo/w con Accession Number(s): [id number] cc: Latisha Banuelos; Rebekah Napoles MD Reason [...] Negin White MD 07/20/2025 01:12 PM EST Dictated By: Negin White MD Signed By: <Electronically signed by Negin White MD in OV> 07/20/25 1312 DD/ 1203 TD/TT: 07/20/25 1228 Wax Bleacher: FRITZ [facility] External Provider IMG MRI PROCEDURES Final Result * Hepatitis C Antibody with Reflex to HCV, RNA, Quantitative, Real-Time PCR (12/19/2024 12:11 PM EDT) Hepatitis C Antibody Nonreactive Nonreactive [facility] Comment:Antibodies to HCV no t detected; does not exclude early acuteHCV infection. Blood Venous blood specimen / Unknown 12/19/2024 12:11 PM EDT 12/19/2024 1:20 PM EDT Rebekah Napoles MD LAB BLOOD ORDERABLES Final Resul t [facility] [address] [place] [phone] * HIV-1/2 Antigen and Antibodies, Fourth Generation, with Reflexes (12/19/2024 12:11 PM EDT) HIV AB/AG Nonreactive Nonreactive [facility] Comment:HIV-1 p24 Ag and/or HIV-1/HIV-2 Ab not detected.A test result that is nonreactive does not exclude thepossibility of exposure to or infection with HIV-1 and/orHIV-2. Nonreactive results in this assay for individualswith prior exposure to HIV-1 and/or HIV-2 may be due toantigen and antibody levels that are below the limit ofdetection of this assay.The BUILD HIV Ag/Ab Combo assay result andsupplemental assay results should be interpreted inconjunction with the patient's clinical presentation,history and other laboratory results. If the results areinconsistent with clinical evidence, additional testing issuggested to confirm the result. Blood Venous blood specimen / Unknown 12/19/2024 12:11 PM EDT 12/19/2024 1:20 PM EDT Rebekah Napoles MD LAB BLOOD ORDERABLES Final Resul t Performing Organization Address [facility] Co de Phone Number [facility] [address] [place] [phone] * (ABNORMAL) Lipid Panel with Reflex to Direct LDL (12/30/2023 11:06 AM EDT) Triglycerides 90 <150 mg/dL [facility] Comment:Desirable Triglyceri de: less than 150 mg/dLBorderline High Triglyceride 150-199 mg/dLHigh Triglyceride: 200-499 mg/dLVery High Triglyceride: greater than or equal to 5OO mg/dL Cholesterol 164 <200 mg/dL [facility] Comment:Desirable Cholestero l: less than 200 mg/dLBorderline High Cholesterol: 200-239 mg/dLHigh Cholesterol: greater than 239 mg/dL LDL Cholesterol Calculated 100(H) <100 mg/dL [facility] Comment:Desirable LDL: less than 100 mg/dLNear Optimal/Above Optimal LDL: 110- 129 mg/dLBorderline High LDL: 130-159 mg/dLHigh LDL: 160-189 mg/dLVery High LDL: greater than or equal to 190 mg/dL HDL Cholesterol 46 >40 mg/dL [facility] Comment:Desirable HDL: great er than 40 mg/dL Note: This HDL assay may give artificially low results in patients with liver disease. Blood 12/30/2023 11:0 6 AM EDT 12/30/2023 1:30 PM EDT Rebekah Napoles MD LAB BLOOD ORDERABLES Final Resul t Performing Organization Address [facility] Co de Phone Number [facility] [address] [place] [phone] * HPV mRNA E6/E7 (06/08/2017 1:23 PM EDT) HPV mRNA E6/E7 Not Detected NOT DETECTED [facility] Comment: This test was performed using the APTIMA(R) HPV Assay ([employer] This assay detects E6/E7 viral messenger RNA (mRNA) from 14 high-risk HPV types (16,18,31,33,35,39,45,51, 52,56,58,59,66,68). For additional information please refer to: http://education.Philo/faq/UAV234z9 (This link is being provided for informational/ educational purposes only.) Test Performed by [facility], [employer] [facility], [address] [place] [id number] Michael Virgen M.D., Ph.D., Director of Laboratories , [place] [id number] Please note: Effective 05/18/2016, HPV testing will be performed using [employer]'s APTIMA test which targets mRNA. Detecting mRNA instead of DNA, as in older methods, offers significant improvements in specificity. 06/08/2017 1:23 PM EDT us Rebekah Napoles MD HISTORICAL/NON ORDERABLE LABS Fi nal Result [facility] [address] from Last 3 Months or Most Recently Relevant to Health Maintenance Insurance [employer] C3 Care Teams Screen Printing Stencil Preparer Relationship Specialty Start Date End Date Rebekah Napoles MD [address] [place] [phone] PCP - General Family Medicine 06/06/12
== END 2025-07-31 11:50 | disposition home or self-care (01) ==
LOC: HO.HUSH 11:03
PROVIDERS: PCP Family Medicine; Visit Provider Nurse Practitioner Family
DX: N28.1 Cyst of kidney, acquired (principal); Z13.9 Encounter for screening, unspecified
CPT/HCPCS: 99213